=== PATIENT | male | born 1955 | race African-American/Black ===

== ENCOUNTER 2017-01-13 11:50 | Inpatient (IN) | payer OTHER ==
[2017-01-13 16:11] VITALS: BMI 27.2
--- NOTE | 2017-01-13 16:39 | HP ---
CIWA Score - CIWA Score Nausea/Vomitin-No Nausea/No Vomiting Muscle Tremors: 3 Anxiety: 4-Mod. Anxious/Guarded Agitation: 4-Moderately Restless Paroxysmal Sweats: 1-Minimal Palms Moist Orientation: 0-Oriented Tacttile Disturbances: 3-Moderate Itch/Numb/Burn Auditory Disturbances: 0-None Visual Disturbances: 0-None Headache: 0-None Present CIWA-Ar Total Score: 15 Admission ROS BHS - HPI Chief Complaint: DETOX TX FOR ALCOHOL DEPENDENCE Allergies/Adverse Reactions: Allergies Allergy/AdvReac Type Severity Reaction Status Date / Time No Known Allergies Allergy Verified 01/13/17 17:41 History of Present Illness: 61 Y/O AA/MALE WITH A HX OF ALCOHOL AND COCAINE DEPENDENCE SEEKING DETOX TX Exam Limitations: No Limitations - Ebola screening Have you traveled outside of the country in the last 21 days: No Have you had contact with anyone from an Ebola affected area: No Have you been sick,other than usual withdrawal symptoms: No - Review of Systems Constitutional: Chills, Night Sweats, Changes in sleep, Unintentional Wgt. Loss EENT: reports: Nose Congestion, Dental Problems Respiratory: reports: No Symptoms reported Cardiac: reports: Lightheadedness, Palpitations (YEARS AGO) GI: reports: Diarrhea : reports: Frequency Musculoskeletal: reports: Back Pain, Joint Pain, Muscle Pain Integumentary: reports: No Symptoms Reported Neuro: reports: Headache, Numbness, Tingling, Tremors, Unsteady Gait, Dizziness Endocrine: reports: No Symptoms Reported Hematology: reports: No Symptoms Reported Psychiatric: reports: Orientated x3, Anxious, Depressed Other Systems: Reviewed and Negative Patient History - Patient Medical History Hx Anemia: No Hx Asthma: No Hx Chronic Obstructive Pulmonary Disease (COPD): No Hx Cancer: No Hx Cardiac Disorders: No Hx Congestive Heart Failure: No Hx Hypertension: Yes (ON PROCARDIA 120 MG PO DAILY) Hx Hypercholesterolemia: No Hx Pacemaker: No HX Cerebrovascular Accident: No Hx Seizures: No Hx Dementia: No Hx Diabetes: No Hx Gastrointestinal Disorders: No Hx Liver Disease: No Hx Genitourinary Disorders: No Hx Sexually Transmitted Disorders: No (DENIES) Hx Renal Disease (ESRD): Yes (HX CRF "(1.57)"; "THEY SAY NOT BAD BUT GETTING THERE") Hx Thyroid Disease: No Hx Human Immunodeficiency Virus (HIV): No (NEGATIVE HX) Hx Hepatitis C: No Hx Depression: Yes (NO CURRENT MEDS) Hx Suicide Attempt: No Hx Bipolar Disorder: No Hx Schizophrenia: Yes (seroquel,abilify off & on) - Patient Surgical History Past Surgical History: Yes Hx Neurologic Surgery: No Hx Cataract Extraction: No Hx Cardiac Surgery: No Hx Lung Surgery: No Hx Breast Surgery: No Hx Breast Biopsy: No Hx Abdominal Surgery: No Hx Appendectomy: No Hx Cholecystectomy: No Hx Genitourinary Surgery: No Hx Orthopedic Surgery: Yes (Had Rt. Chest tube 2013) Other Surgical History: right lateral keloid removed unable to remember when Anesthesia Reaction: No - PPD History Previous Implant?: Yes Implanted On Prior R Admission?: Yes Date: 01/09/16 Results: 0 mm PPD to be Administered?: Yes - Reproductive History Patient is a Female of Child Bearing Age (11 -55 yrs old): No (MALE) Patient : (N/A) - Smoking Cessation Smoking history: Current some day smoker Have you smoked in the past 12 months: No Aproximately how many cigarettes per day: 1 Cigars Per Day: 0 Hx Chewing Tobacco Use: No Initiated information on smoking cessation: Yes 'Breaking Loose' booklet given: 01/13/17 - Substance & Tx. History Hx Alcohol Use: Yes (BEER/LIQUOR/WINE) Hx Substance Use: Yes (COCAINE/RX PERCOCETS/OXYCODONE) Substance Use Type: Alcohol, Cocaine, Opiates (RX PERCOCETS/OXYCODONE BID BUT TOOK MORE THAN INSTRUCTED) Hx Substance Use Treatment: Yes - Substances Abused Alcohol Route: Oral Frequency: Daily Amount used: 6PK/FIFTH/FIFTH Age of first use: 28 Date of Last Use: 01/12/17 Cocaine Route: Smoking Frequency: Daily Amount used: $50 Age of first use: 28 Date of Last Use: 01/12/17 Family Disease History - Family Disease History Family Disease History: Heart Disease: Father ([place] ), Mother (HTN), Brother (HTN,alcoholic,) Admission Physical Exam BHS - Vital Signs Vital Signs: Vital Signs - 24 hr 01/13/17 16:07 Temperature 97 F L Pulse Rate 57 L Respiratory 20 Rate Blood Pressure 181/110 - Physical General Appearance: Yes: Moderate Distress, Irritable, Anxious HEENTM: Yes: EOMI, Normocephalic, NISSA, Pharynx Normal Respiratory: Yes: Chest Non-Tender, Lungs Clear, Normal Breath Sounds, No Respiratory Distress Neck: Yes: Supple, Trachea in good position Breast: Yes: Breast Exam Deferred Cardiology: Yes: Regular Rhythm, S1, S2, Bradycardia Abdominal: Yes: Normal Bowel Sounds, Non Tender, Soft Genitourinary: Yes: Other (N/C) Back: Yes: Within Normal Limits Musculoskeletal: Yes: full range of Motion, Gait Steady Extremities: Yes: Normal Range of Motion, Non-Tender Neurological: Yes: nylon hot wire cutter II-XII NML intact, Fully Oriented, Alert Integumentary: Yes: Dry, Warm Lymphatic: Yes: Within Normal Limits - Diagnostic (1) Alcohol dependence with uncomplicated withdrawal Current Visit: Yes Status: Acute (2) Hypertension Current Visit: Yes Status: Acute Qualifiers: Hypertension type: essential hypertension Qualified Code(s): I10 - Essential (primary) hypertension (3) Nicotine dependence Current Visit: Yes Status: Acute Qualifiers: Nicotine product type: cigarettes Substance use status: in withdrawal Qualified Code(s): F17.213 - Nicotine dependence, cigarettes, with withdrawal (4) Chronic renal failure Current Visit: Yes Status: Suspected Qualified Code(s): - (5) Cocaine dependence Current Visit: Yes Status: Acute Cleared for Admission [facility] - Detox or Rehab [facility] Level of Care: Medically Managed Detox Regimen/Protocol: Librium [facility] Breath Alcohol Content Breath Alcohol Content: 0 Urine Drug Screen - Results Drug Screen Negative: No Urine Drug Screen Results: RJ-Cocaine, TCA-Tricyclic Antidepress
[2017-01-13] MEDS ORDERED: LOPERAMIDE HCL 2 MG CAPSULE PO PRN (17:00)
[2017-01-13] MEDS ORDERED: IBUPROFEN 400 MG TABLET (FP) PO PRN (17:00)
[2017-01-13] MEDS ORDERED: MENTHOL/PHENOL 1 EACH UD MM PRN (17:00)
[2017-01-13] MEDS ORDERED: P-EPHED 60MG/TRIPROLIDI 2.5MG TABLET PO PRN (17:00)
[2017-01-13] MEDS ORDERED: MAG HYDROX/AL HYDROX/SIMETH 30 ML UNIT-DOSE CUP PO PRN (17:00)
[2017-01-13] MEDS ORDERED: chlordiazePOXIDE HCL 25 MG CAPSULE PO PRN (17:00)
[2017-01-13] MEDS ORDERED: MAGNESIUM HYDROX 2400MG/30ML ORAL SUSPENSION 30 ML CUP PO PRN (17:00)
[2017-01-13] MEDS ORDERED: MAGNESIUM CITRATE 300 ML BOTTLE PO PRN (17:00)
[2017-01-13] MEDS ORDERED: guaiFENesin/D-METHORPHAN HB 10 ML UNIT-DOSE CUPS PO PRN (17:00)
[2017-01-13] MEDS ORDERED: ACETAMINOPHEN 325 MG TABLET (FP) PO PRN (17:00)
[2017-01-13] MEDS ORDERED: chlordiazePOXIDE HCL 25 MG CAPSULE PO ONE (18:00)
[2017-01-13] MEDS: chlordiazePOXIDE HCL 25 MG CAPSULE PO SCH ×2 (18:45→22:06)
[2017-01-13] MEDS ORDERED: cloNIDine HCL 0.1 MG TABLET PO ONE (19:09)
[2017-01-13] MEDS ORDERED: diphenhydrAMINE HCL 50 MG CAPSULE PO PRN (22:00)
[2017-01-13] MEDS: THIAMINE HCL 100 MG TABLET (FP) PO SCH (22:06)
[2017-01-13 23:14] LABS: URINE APPEARANCE CLEAR; URINE BILIRUBIN NEGATIVE (NEGATIVE); URINE BLOOD NEGATIVE (NEGATIVE); URINE COLOR STRAW; URINE GLUCOSE (UA) 1+ (NEGATIVE); URINE KETONE NEGATIVE (NEGATIVE); URINE LEUK ESTERASE NEGATIVE (NEGATIVE); URINE NITRITE NEGATIVE (NEGATIVE); URINE PROTEIN NEGATIVE (NEGATIVE); URINE UROBILINOGEN NEGATIVE mg/dL (0.2-1.0)
[2017-01-14] MEDS: chlordiazePOXIDE HCL 25 MG CAPSULE PO SCH ×4 (05:47→22:38)
[2017-01-14] MEDS: cloNIDine HCL 0.1 MG TABLET PO PRN (07:37)
[2017-01-14] MEDS: PRENATAL VITAMINS W/ FOLIC ACID TABLET (FP) PO SCH (10:14)
[2017-01-14] MEDS ORDERED: IBUPROFEN 600 MG TABLET (FP) PO PRN (10:22)
--- NOTE | 2017-01-14 10:22 | PN ---
S CIWA - CIWA Score Nausea/Vomitin-Mild Nausea/No Vomiting Muscle Tremors: 3 Anxiety: 4-Mod. Anxious/Guarded Agitation: 3 Paroxysmal Sweats: 3 Orientation: 0-Oriented Tacttile Disturbances: 0-None Auditory Disturbances: 0-None Visual Disturbances: 0-None Headache: 1-Very Mild CIWA-Ar Total Score: 15 S Progress Note (SOAP) Subjective: Anxiety,tremors,sweating,interrupted sleep,restless,nausea. Objective: 01/14/17 10:21 Vital Signs - 8 hr 01/14/17 01/14/17 01/14/17 03:28 06:45 09:22 Temperature 97.3 F L 96 F L Pulse Rate 65 74 Respiratory 18 18 18 Rate Blood Pressure 158/104 155/95 Laboratory Results - last 24 hr 01/13/17 23:00 Urine Color Straw Urine Appearance Clear Urine pH 6.0 Urine Protein Negative Urine Glucose (UA) 1+ H Urine Ketones Negative Urine Blood Negative Urine Nitrite Negative Urine Bilirubin Negative Urine Urobilinogen Negative Ur Leukocyte Esterase Negative u/a noted Assessment: 01/14/17 10:21 Withdrawal sx. HTN Plan: Continue detox Resume Nifedipine
[2017-01-14 10:33] LABS: MCH 30.7 pg (25.7-33.7); MCHC 33.3 g/dl (32.0-35.9); MEAN CELL VOLUME 92.2 fl (80-96); PLATELET COUNT 205 K/MM3 (134-434); RDW 14.8 % (11.9-15.9); WHITE BLOOD COUNT 4.6 K/mm3 (4.0-10.0)
[2017-01-14 10:57] LABS: ALBUMIN 3.4 g/dl (3.4-5.0); ALK PHOS 90 U/L (45-117); ANION GAP 7 (8-16); BILIRUBIN,TOTAL 0.5 mg/dL (0.2-1.0); CALCIUM 9.2 mg/dL (8.5-10.1); CO2 31 mmol/L (21-32); CREATININE 1.9 mg/dL (0.7-1.3); GLUCOSE,RANDOM 91 mg/dL (74-106); SGOT/AST 28 U/L (15-37); SGPT/ALT 50 U/L (12-78); TOT PROT 6.7 g/dl (6.4-8.2)
[2017-01-14] MEDS: NIFEdipine E.R. 90 MG TABLET (FP) PO SCH (12:20)
--- NOTE | 2017-01-14 12:48 | CONSULT ---
[facility] Psychiatric Consult - Data Date of interview: 01/14/17 Admission source: [facility] Identifying data: Readmission to [facility] for this 61 y/o AA male seeking detox treatment,on ,for alcohol and cocaine dependence.Patient is single, a father of two,domiciled,unemployed and supported on SSI benefits.Mr Garcia is marginally cooperative.He declines to provide personal demographic information in this interview.Previous records revisited for documentation. Substance Abuse History: - Smoking Cessation. Smoking history: Current some day smoker. Have you smoked in the past 12 months: No. Aproximately how many cigarettes per day: 1. Cigars Per Day: 0. Hx Chewing Tobacco Use: No. Initiated information on smoking cessation: Yes. 'Breaking Loose' booklet given : 01/13/17. - Substance & Tx. History. Hx Alcohol Use: Yes (BEER/LIQUOR/WINE) . Hx Substance Use: Yes (COCAINE/RX PERCOCETS/OXYCODONE). Substance Use Type: Alcohol, Cocaine, Opiates (RX PERCOCETS/OXYCODONE BID BUT TOOK MORE THAN INSTRUCTED). Hx Substance Use Treatment: Yes. - Substances Abused. Alcohol. Route: Oral. Frequency: Daily. Amount used: 6PK/FIFTH/FIFTH. Age of first use: 28. Date of Last Use: 01/12/17. Cocaine. Route: Smoking. Frequency: Daily. Amount used: $50. Age of first use: 28. Date of Last Use: 01/12/17. Noted from current [facility] report. Medical History: History of hypertension and abnormal renal function. Psychiatric History: From previous records : history of psychiatric hospitalizations years ago.Details not available.No OPD care.Off psychotropic medications with the exception of seroquel at bedtime.No reported history of suicide attempts.Records indicate lifetime diagnosis of schizophrenia (paranoid type). Physical/Sexual Abuse/Trauma History: No information.Not discussed. Additional Comment: Urine Drug Screen Results: RJ-Cocaine, TCA-Tricyclic Antidepressants.Patient is guarded.Declines to provide information about his pattern of substance use.History taken from [facility] report. Mental Status Exam - Mental Status Exam Alert and Oriented to: Time, Place, Person Patient Appearance: Well Groomed Mood: Hostile Affect: Blunted Patient Behavior: Guarded, Suspicious Speech Pattern: Tangential Voice Loudness: Normal Thought Process: Circumstantial Thought Disorder: Paranoid Ideation, Bizarre Hallucinations: Denies Suicidal Ideation: Denies Homicidal Ideation: Denies Insight/Judgement: Poor, Impaired Sleep: Well Appetite: Good Muscle strength/Tone: Normal Gait/Station: Normal Psychiatric Findings - Problem List ([place] 1, 2,3) (1) Paranoid schizophrenia Current Visit: Yes Status: Chronic (2) Alcohol dependence with uncomplicated withdrawal Current Visit: Yes Status: Acute (3) Cocaine dependence Current Visit: Yes Status: Acute (4) Nicotine dependence Current Visit: Yes Status: Acute Qualifiers: Nicotine product type: cigarettes Substance use status: in withdrawal Qualified Code(s): F17.213 - Nicotine dependence, cigarettes, with withdrawal (5) Hypertension Current Visit: Yes Status: Acute Qualifiers: Hypertension type: essential hypertension Qualified Code(s): I10 - Essential (primary) hypertension (6) Chronic renal failure Current Visit: Yes Status: Chronic (7) Insomnia Current Visit: Yes Status: Acute - Initial Treatment Plan Initial Treatment Plan: Psychoeducation.Detoxification.Seroquel 100 mg po bid.Side effects/benefits discussed with patient.Agrees to take seroquel.Observation.
--- NOTE | 2017-01-14 22:00 | EKG ---
Test Reason : Blood Pressure : / mmHG Vent. Rate : 060 BPM Atrial Rate : 060 BPM P-R Int : 162 ms QRS Dur : 108 ms QT Int : 424 ms P-R-T Axes : 063 -28 260 degrees QTc Int : 424 ms NORMAL SINUS RHYTHM LEFT ATRIAL ENLARGEMENT LEFT VENTRICULAR HYPERTROPHY WITH REPOLARIZATION ABNORMALITY ABNORMAL ECG WHEN COMPARED WITH ECG OF 15-SEP-2016 08:01, NO SIGNIFICANT CHANGE WAS FOUND CLINICAL CORRELATION IS RECOMMENDED Confirmed by CLAUDETTE DORSEY MD ([id number]) on 01/14/2017 10:00:29 PM Referred By: Confirmed By:CLAUDETTE DORSEY MD
[2017-01-14] MEDS: THIAMINE HCL 100 MG TABLET (FP) PO SCH (22:35)
[2017-01-14] MEDS: QUEtiapine FUMARATE 100 MG TABLET (FP) PO SCH (22:36)
[2017-01-15] MEDS: chlordiazePOXIDE HCL 25 MG CAPSULE PO SCH ×2 (06:06→10:07)
[2017-01-15] MEDS: QUEtiapine FUMARATE 100 MG TABLET (FP) PO SCH ×2 (10:07→22:04)
[2017-01-15] MEDS: PRENATAL VITAMINS W/ FOLIC ACID TABLET (FP) PO SCH (10:07)
[2017-01-15] MEDS: NIFEdipine E.R. 90 MG TABLET (FP) PO SCH (10:07)
--- NOTE | 2017-01-15 12:28 | PN ---
[facility] CIWA - CIWA Score Nausea/Vomitin-No Nausea/No Vomiting Muscle Tremors: 3 Anxiety: 3 Agitation: 3 Paroxysmal Sweats: 3 Orientation: 0-Oriented Tacttile Disturbances: 0-None Auditory Disturbances: 0-None Visual Disturbances: 0-None Headache: 0-None Present CIWA-Ar Total Score: 12 S Progress Note (SOAP) Subjective: Sweating,interrupted sleep,restless,tremors,anxiety Objective: 01/15/17 12:27 Vital Signs - 8 hr 01/15/17 01/15/17 06:33 09:39 Temperature 96.4 F L 96.3 F L Pulse Rate 64 68 Respiratory 18 18 Rate Blood Pressure 140/89 152/99 Laboratory Last Values WBC 4.6 K/mm3 (4.0-10.0) 01/14/17 06:30 RBC 4.21 M/mm3 (4.00-5.60) 01/14/17 06:30 Hgb 12.9 GM/dL (11.7-16.9) 01/14/17 06:30 Hct 38.8 % (35.4-49) 01/14/17 06:30 MCV 92.2 fl (80-96) 01/14/17 06:30 MCH 30.7 pg (25.7-33.7) 01/14/17 06:30 MCHC 33.3 g/dl (32.0-35.9) 01/14/17 06:30 RDW 14.8 % (11.9-15.9) 01/14/17 06:30 Plt Count 205 K/MM3 (134-434) 01/14/17 06:30 MPV 10.0 fl (7.5-11.1) D 01/14/17 06:30 Sodium 142 mmol/L (136-145) 01/14/17 06:30 Potassium 4.1 mmol/L (3.5-5.1) 01/14/17 06:30 Chloride 104 mmol/L (98-107) 01/14/17 06:30 Carbon Dioxide 31 mmol/L (21-32) 01/14/17 06:30 Anion Gap 7 (8-16) L 01/14/17 06:30 BUN 29 mg/dL (7-18) H D 01/14/17 06:30 Creatinine 1.9 mg/dL (0.7-1.3) H D 01/14/17 06:30 Creat Clearance w eGFR 36.47 (>60) 01/14/17 06:30 Random Glucose 91 mg/dL (74-106) 01/14/17 06:30 Calcium 9.2 mg/dL (8.5-10.1) 01/14/17 06:30 Total Bilirubin 0.5 mg/dL (0.2-1.0) D 01/14/17 06:30 AST 28 U/L (15-37) 01/14/17 06:30 ALT 50 U/L (12-78) D 01/14/17 06:30 Alkaline Phosphatase 90 U/L (45-117) 01/14/17 06:30 Total Protein 6.7 g/dl (6.4-8.2) 01/14/17 06:30 Albumin 3.4 g/dl (3.4-5.0) 01/14/17 06:30 Urine Color Straw 01/13/17 23:00 Urine Appearance Clear 01/13/17 23:00 Urine pH 6.0 (5.0-8.0) 01/13/17 23:00 Ur Specific [place] 1.020 (1.005-1.025) 01/13/17 23:00 Urine Protein Negative (NEGATIVE) 01/13/17 23:00 Urine Glucose (UA) 1+ (NEGATIVE) H 01/13/17 23:00 Urine Ketones Negative (NEGATIVE) 01/13/17 23:00 Urine Blood Negative (NEGATIVE) 01/13/17 23:00 Urine Nitrite Negative (NEGATIVE) 01/13/17 23:00 Urine Bilirubin Negative (NEGATIVE) 01/13/17 23:00 Urine Urobilinogen Negative mg/dL (0.2-1.0) 01/13/17 23:00 Ur Leukocyte Esterase Negative (NEGATIVE) 01/13/17 23:00 RPR Titer Nonreactive (NONREACTIVE) 01/14/17 06:30 labs noted,repeat creat/bun Assessment: 01/15/17 12:28 Withdrawal sx. Plan: Continue detox
[2017-01-15] MEDS: chlordiazePOXIDE 5 MG CAPSULE PO SCH ×2 (17:36→22:04)
[2017-01-15] MEDS: THIAMINE HCL 100 MG TABLET (FP) PO SCH (22:04)
[2017-01-16] MEDS: chlordiazePOXIDE 5 MG CAPSULE PO SCH ×2 (05:45→10:05)
[2017-01-16] MEDS: QUEtiapine FUMARATE 100 MG TABLET (FP) PO SCH (10:05)
[2017-01-16] MEDS: PRENATAL VITAMINS W/ FOLIC ACID TABLET (FP) PO SCH (10:05)
[2017-01-16] MEDS: NIFEdipine E.R. 90 MG TABLET (FP) PO SCH (10:05)
--- NOTE | 2017-01-16 13:16 | PN ---
BHS Progress Note (SOAP) Subjective: Sweating,interrupted sleep,restless Objective: 01/16/17 13:15 Vital Signs - 8 hr 01/16/17 01/16/17 06:45 10:12 Temperature 97.3 F L 97.0 F L Pulse Rate 74 68 Respiratory 18 20 Rate Blood Pressure 146/89 160/90 Laboratory Last Values WBC 4.6 K/mm3 (4.0-10.0) 01/14/17 06:30 RBC 4.21 M/mm3 (4.00-5.60) 01/14/17 06:30 Hgb 12.9 GM/dL (11.7-16.9) 01/14/17 06:30 Hct 38.8 % (35.4-49) 01/14/17 06:30 MCV 92.2 fl (80-96) 01/14/17 06:30 MCH 30.7 pg (25.7-33.7) 01/14/17 06:30 MCHC 33.3 g/dl (32.0-35.9) 01/14/17 06:30 RDW 14.8 % (11.9-15.9) 01/14/17 06:30 Plt Count 205 K/MM3 (134-434) 01/14/17 06:30 MPV 10.0 fl (7.5-11.1) D 01/14/17 06:30 Sodium 142 mmol/L (136-145) 01/14/17 06:30 Potassium 4.1 mmol/L (3.5-5.1) 01/14/17 06:30 Chloride 104 mmol/L (98-107) 01/14/17 06:30 Carbon Dioxide 31 mmol/L (21-32) 01/14/17 06:30 Anion Gap 7 (8-16) L 01/14/17 06:30 BUN 29 mg/dL (7-18) H D 01/14/17 06:30 Creatinine 1.9 mg/dL (0.7-1.3) H D 01/14/17 06:30 Creat Clearance w eGFR 36.47 (>60) 01/14/17 06:30 Random Glucose 91 mg/dL (74-106) 01/14/17 06:30 Calcium 9.2 mg/dL (8.5-10.1) 01/14/17 06:30 Total Bilirubin 0.5 mg/dL (0.2-1.0) D 01/14/17 06:30 AST 28 U/L (15-37) 01/14/17 06:30 ALT 50 U/L (12-78) D 01/14/17 06:30 Alkaline Phosphatase 90 U/L (45-117) 01/14/17 06:30 Total Protein 6.7 g/dl (6.4-8.2) 01/14/17 06:30 Albumin 3.4 g/dl (3.4-5.0) 01/14/17 06:30 Urine Color Straw 01/13/17 23:00 Urine Appearance Clear 01/13/17 23:00 Urine pH 6.0 (5.0-8.0) 01/13/17 23:00 Ur Specific [place] 1.020 (1.005-1.025) 01/13/17 23:00 Urine Protein Negative (NEGATIVE) 01/13/17 23:00 Urine Glucose (UA) 1+ (NEGATIVE) H 01/13/17 23:00 Urine Ketones Negative (NEGATIVE) 01/13/17 23:00 Urine Blood Negative (NEGATIVE) 01/13/17 23:00 Urine Nitrite Negative (NEGATIVE) 01/13/17 23:00 Urine Bilirubin Negative (NEGATIVE) 01/13/17 23:00 Urine Urobilinogen Negative mg/dL (0.2-1.0) 01/13/17 23:00 Ur Leukocyte Esterase Negative (NEGATIVE) 01/13/17 23:00 RPR Titer Nonreactive (NONREACTIVE) 01/14/17 06:30 labs noted Assessment: 01/16/17 13:15 Withdrawal sx. Plan: Continue detox
[2017-01-16] MEDS ORDERED: chlordiazePOXIDE HCL 10 MG CAPSULE PO SCH (17:00)
[2017-01-16 17:56] VITALS: BP 138/85; PULSE 69; TEMP 97.8
[2017-01-16] MEDS: cloNIDine HCL 0.1 MG TABLET PO PRN (20:55)
--- NOTE | 2017-01-16 22:38 | DS ---
[facility] Detox Discharge Summary Admission Date: 01/13/17 Discharge Date: 01/16/17 - History Present History: Alcohol Dependence, Cocaine Dependence Pertinent Past History: HTN, CRF - Physical Exam Results Vital Signs: Vital Signs Temperature 97.8 F 01/16/17 17:56 Pulse Rate 69 01/16/17 17:56 Respiratory Rate 18 01/16/17 17:56 Blood Pressure 138/85 01/16/17 17:56 O2 Sat by Pulse Oximetry (%) Pertinent Admission Physical Exam Findings: Laboratory Last Values WBC 4.6 K/mm3 (4.0-10.0) 01/14/17 06:30 RBC 4.21 M/mm3 (4.00-5.60) 01/14/17 06:30 Hgb 12.9 GM/dL (11.7-16.9) 01/14/17 06:30 Hct 38.8 % (35.4-49) 01/14/17 06:30 MCV 92.2 fl (80-96) 01/14/17 06:30 MCH 30.7 pg (25.7-33.7) 01/14/17 06:30 MCHC 33.3 g/dl (32.0-35.9) 01/14/17 06:30 RDW 14.8 % (11.9-15.9) 01/14/17 06:30 Plt Count 205 K/MM3 (134-434) 01/14/17 06:30 MPV 10.0 fl (7.5-11.1) D 01/14/17 06:30 Sodium 142 mmol/L (136-145) 01/14/17 06:30 Potassium 4.1 mmol/L (3.5-5.1) 01/14/17 06:30 Chloride 104 mmol/L (98-107) 01/14/17 06:30 Carbon Dioxide 31 mmol/L (21-32) 01/14/17 06:30 Anion Gap 7 (8-16) L 01/14/17 06:30 BUN 29 mg/dL (7-18) H D 01/14/17 06:30 Creatinine 1.9 mg/dL (0.7-1.3) H D 01/14/17 06:30 Creat Clearance w eGFR 36.47 (>60) 01/14/17 06:30 Random Glucose 91 mg/dL (74-106) 01/14/17 06:30 Calcium 9.2 mg/dL (8.5-10.1) 01/14/17 06:30 Total Bilirubin 0.5 mg/dL (0.2-1.0) D 01/14/17 06:30 AST 28 U/L (15-37) 01/14/17 06:30 ALT 50 U/L (12-78) D 01/14/17 06:30 Alkaline Phosphatase 90 U/L (45-117) 01/14/17 06:30 Total Protein 6.7 g/dl (6.4-8.2) 01/14/17 06:30 Albumin 3.4 g/dl (3.4-5.0) 01/14/17 06:30 Urine Color Straw 01/13/17 23:00 Urine Appearance Clear 01/13/17 23:00 Urine pH 6.0 (5.0-8.0) 01/13/17 23:00 Ur Specific [place] 1.020 (1.005-1.025) 01/13/17 23:00 Urine Protein Negative (NEGATIVE) 01/13/17 23:00 Urine Glucose (UA) 1+ (NEGATIVE) H 01/13/17 23:00 Urine Ketones Negative (NEGATIVE) 01/13/17 23:00 Urine Blood Negative (NEGATIVE) 01/13/17 23:00 Urine Nitrite Negative (NEGATIVE) 01/13/17 23:00 Urine Bilirubin Negative (NEGATIVE) 01/13/17 23:00 Urine Urobilinogen Negative mg/dL (0.2-1.0) 01/13/17 23:00 Ur Leukocyte Esterase Negative (NEGATIVE) 01/13/17 23:00 RPR Titer Nonreactive (NONREACTIVE) 01/14/17 06:30 Pt is alert and oriented x 3. He requested an early discharge. He denies any withdrawal symptoms. Pt advised to follow-up with his PCP regarding abnormal labs; he verbalized understanding. He was discharged safely with no signs of distress noted. Medications sent to the pharmacy. - Treatment Hospital Course: Detox Protocol Followed, Detoxed Safely, Responded well, Discharged Condition Good - Medication Discharge Medications: Ambulatory Orders Quetiapine Fumarate [Seroquel -] 100 mg PO HS 07/10/16 Quetiapine Fumarate [Seroquel] 100 mg PO BID #60 tablet 01/14/17 Nifedipine ER [Procardia XL -] 120 mg PO DAILY #14 mg 01/16/17 - AMA Did Patient Leave Against Medical Advice: No
[2017-01-17] MEDS ORDERED: NIFEdipine E.R 60 MG TABLET (UD) PO SCH (10:00)
== END 2017-01-16 21:14 | disposition home or self-care (01) | DRG 521 ==
LOC: YASAS 11:50 → Y3N 17:58
PROVIDERS: ADMIT Internal Medicine; ATTEND Internal Medicine
PROC: HZ2ZZZZ Detoxification Services for Substance Abuse Treatment (ICD-10-PCS; principal; 2017-01-13)
DX: F10.230 Alcohol dependence with withdrawal, uncomplicated (principal); F20.0 Paranoid schizophrenia; N18.9 Chronic kidney disease, unspecified; F14.20 Cocaine dependence, uncomplicated; F17.213 Nicotine dependence, cigarettes, with withdrawal; I12.9 Hypertensive chronic kidney disease with stage 1 through stage 4 chronic kidney disease, or unspecified chronic kidney disease; G47.00 Insomnia, unspecified; R00.1 Bradycardia, unspecified
CPT/HCPCS: 36415; 80053; 81003; 85027; 86593; 93005; 93010

== ENCOUNTER 2017-03-06 13:15 | Inpatient (IN) | payer OTHER ==
[2017-03-06 14:01] VITALS: BMI 27.2
--- NOTE | 2017-03-06 17:09 | HP ---
CIWA Score - CIWA Score Nausea/Vomitin Muscle Tremors: 4-Moderate,w/Arms Extend Anxiety: 4-Mod. Anxious/Guarded Agitation: 4-Moderately Restless Paroxysmal Sweats: 3 Orientation: 0-Oriented Tacttile Disturbances: 1-Very Mild Itch/Numbness Auditory Disturbances: 0-None Visual Disturbances: 0-None Headache: 1-Very Mild CIWA-Ar Total Score: 20 Admission ROS S - HPI Chief Complaint: alcohol withdrawal sx Allergies/Adverse Reactions: Allergies Allergy/AdvReac Type Severity Reaction Status Date / Time No Known Allergies Allergy Verified 03/06/17 16:55 History of Present Illness: 61 yo m with h/o alcohol and cocaine dependence, multiple admissions for detox PMHx nicotine [id number], HTN, s/p traum left htigh, keloid back, schizophrenia hearing voices on meds, no suicidal ideation no suicide attempts in past. Exam Limitations: No Limitations - Ebola screening Have you traveled outside of the country in the last 21 days: No Have you had contact with anyone from an Ebola affected area: No Have you been sick,other than usual withdrawal symptoms: No Do you have a fever: No - Review of Systems Constitutional: Chills, Diaphoresis, Malaise, Night Sweats, Weight Stable EENT: reports: No Symptoms Reported Respiratory: reports: No Symptoms reported Cardiac: reports: No Symptoms Reported GI: reports: Nausea, Poor Appetite, Poor Fluid Intake, Abdominal cramping : reports: No Symptoms Reported Musculoskeletal: reports: Muscle Pain (thigh pain s/p trauma) Integumentary: reports: Flushing, Sweating, Other (keloid scar on back no erythema non tender) Neuro: reports: Numbness, Paresthesia, Tingling, Tremors, Weakness, Other ( hears non threatening voices) Endocrine: reports: No Symptoms Reported Hematology: reports: No Symptoms Reported Psychiatric: reports: Judgement Intact, Mood/Affect Appropiate, Orientated x3, Anxious, Depressed, other (voices) Other Systems: Reviewed and Negative Patient History - Patient Medical History Hx Anemia: No Hx Asthma: No Hx Chronic Obstructive Pulmonary Disease (COPD): No Hx Cancer: No Hx Cardiac Disorders: No Hx Congestive Heart Failure: No Hx Hypertension: Yes (on meds.) Hx Hypercholesterolemia: No Hx Pacemaker: No HX Cerebrovascular Accident: No Hx Seizures: No Hx Dementia: No Hx Diabetes: No Hx Gastrointestinal Disorders: No Hx Liver Disease: No Hx Genitourinary Disorders: No Hx Sexually Transmitted Disorders: No Hx Renal Disease (ESRD): No Hx Thyroid Disease: No Hx Human Immunodeficiency Virus (HIV): No (NEGATIVE HX) Hx Hepatitis C: No Hx Depression: No Hx Suicide Attempt: No Hx Bipolar Disorder: No Hx Schizophrenia: Yes (paranoid) Other Medical History: s/p trauma left leg with chronic pain syndrome - Patient Surgical History Past Surgical History: Yes Hx Neurologic Surgery: No Hx Cataract Extraction: No Hx Cardiac Surgery: No Hx Lung Surgery: No Hx Breast Surgery: No Hx Breast Biopsy: No Hx Abdominal Surgery: No Hx Appendectomy: No Hx Cholecystectomy: No Hx Genitourinary Surgery: No Hx Section: No Hx Orthopedic Surgery: Yes (Had Rt. Chest tube 2013) Hx Hysterectomy: No Other Surgical History: right lateral keloid removed unable to remember when Anesthesia Reaction: No - PPD History Previous Implant?: Yes Documented Results: Negative w/proof Implanted On Prior [facility] Admission?: Yes Date: 01/15/17 Results: 0 mm PPD to be Administered?: Yes - Reproductive History Patient is a Female of Child Bearing Age (11 -55 yrs old): No Patient : No - Smoking Cessation Smoking history: Current every day smoker Have you smoked in the past 12 months: No Aproximately how many cigarettes per day: 2 If you are a former smoker, when did you quit?: 3 MONTHS AGO Cigars Per Day: 0 Hx Chewing Tobacco Use: No Initiated information on smoking cessation: Yes 'Breaking Loose' booklet given: 03/06/17 - Substance & Tx. History Hx Alcohol Use: Yes Hx Substance Use: Yes Substance Use Type: Alcohol, Cocaine Hx Substance Use Treatment: Yes (mnultiple admissions to [facility]) - Substances Abused Alcohol Route: Oral Frequency: Daily Amount used: 3-4 24 oz beers Age of first use: 25 Date of Last Use: 03/05/17 Cocaine Route: Smoking Frequency: Daily Amount used: $40-50 Age of first use: 29 Date of Last Use: 03/05/17 Family Disease History - Family Disease History Family Disease History: Heart Disease: Father ([place] ), Mother (HTN), Brother (HTN,alcoholic,) Admission Physical Exam BHS - Vital Signs Vital Signs: Vital Signs - 24 hr 03/06/17 14:00 Temperature 96.4 F L Pulse Rate 67 Respiratory 20 Rate Blood Pressure 143/74 - Physical General Appearance: Yes: Nourished, Appropriately Dressed, Disheveled, Mild Distress, Tremorous, Irritable, Sweating, Anxious HEENTM: Yes: Within Normal Limits, EOMI, Hearing grossly Normal, Normal ENT Inspection, Normocephalic, Normal Voice, NISSA, Pharynx Normal, Other (hearing voices but do nto distrub him) Respiratory: Yes: Within Normal Limits, Chest Non-Tender, Lungs Clear, Normal Breath Sounds, No Respiratory Distress, No Accessory Muscle Use Neck: Yes: Within Normal Limits, No masses,lesions,Nodules, Supple, Trachea in good position Breast: Yes: Breast Exam Deferred Cardiology: Yes: Within Normal Limits, Regular Rhythm, Regular Rate, S1, S2 Abdominal: Yes: Within Normal Limits, Normal Bowel Sounds, Non Tender, Flat, Soft Genitourinary: Yes: Within Normal Limits Back: Yes: Within Normal Limits, Normal Inspection Musculoskeletal: Yes: Joint Stiffness (left leg pain, thigh), Joint swelling ( thigh pain), Muscle Pain (thigh s/p trauma) Extremities: Yes: Normal Capillary Refill, Normal Inspection, Normal Range of Motion, Non-Tender, Tremors Neurological: Yes: repairer pump II-XII NML intact, Fully Oriented, Alert, Motor Strength 5/5, Normal Response, Depressed Affect Integumentary: Yes: Normal Color, Warm, Diaphoresis, Moist Lymphatic: Yes: Within Normal Limits - Addiitonal Findings: withdrawal sx. summary /problem list for active problems screen will not populate Cleared for Admission [facility] - Detox or Rehab [facility] Level of Care: Medically Managed Detox Regimen/Protocol: Librium [facility] Breath Alcohol Content Breath Alcohol Content: 0 Urine Drug Screen - Results Drug Screen Negative: No Urine Drug Screen Results: RJ-Cocaine
[2017-03-06] MEDS ORDERED: MAGNESIUM CITRATE 300 ML BOTTLE PO PRN (17:12)
[2017-03-06] MEDS ORDERED: ACETAMINOPHEN 325 MG TABLET (FP) PO PRN (17:12)
[2017-03-06] MEDS ORDERED: MAG HYDROX/AL HYDROX/SIMETH 30 ML UNIT-DOSE CUP PO PRN (17:12)
[2017-03-06] MEDS ORDERED: IBUPROFEN 400 MG TABLET (FP) PO PRN (17:12)
[2017-03-06] MEDS ORDERED: MENTHOL/PHENOL 1 EACH UD MM PRN (17:12)
[2017-03-06] MEDS ORDERED: P-EPHED 60MG/TRIPROLIDI 2.5MG TABLET PO PRN (17:12)
[2017-03-06] MEDS ORDERED: LOPERAMIDE HCL 2 MG CAPSULE PO PRN (17:12)
[2017-03-06] MEDS ORDERED: MAGNESIUM HYDROX 2400MG/30ML ORAL SUSPENSION 30 ML CUP PO PRN (17:12)
[2017-03-06] MEDS ORDERED: diphenhydrAMINE HCL 50 MG CAPSULE PO PRN (17:12)
[2017-03-06] MEDS ORDERED: chlordiazePOXIDE HCL 25 MG CAPSULE PO PRN (17:12)
[2017-03-06] MEDS ORDERED: NICOTINE POLACRILEX 2 MG GUM BC PRN (17:12)
[2017-03-06] MEDS ORDERED: guaiFENesin/D-METHORPHAN HB 10 ML UNIT-DOSE CUPS PO PRN (17:12)
[2017-03-06] MEDS ORDERED: hydrOXYzine PAMOATE 50 MG CAPSULE (FP) PO PRN (17:12)
[2017-03-06] MEDS ORDERED: chlordiazePOXIDE HCL 25 MG CAPSULE PO ONE (18:15)
[2017-03-06] MEDS: NIFEdipine E.R 60 MG TABLET (UD) PO SCH (19:25)
[2017-03-06] MEDS: PANTOPRAZOLE 40 MG TABLET (FP) PO SCH (19:25)
[2017-03-06] MEDS ORDERED: NAPROXEN 500 MG TABLET (FP) PO SCH (22:00)
[2017-03-06] MEDS: NICOTINE 14 MG/24 HOURS TOPICAL PATCH TD SCH (22:35)
[2017-03-06] MEDS: chlordiazePOXIDE HCL 25 MG CAPSULE PO SCH (23:52)
[2017-03-06] MEDS: CYCLOBENZAPRINE HCL 5 MG TABLET PO SCH (23:52)
[2017-03-06] MEDS: GABAPENTIN 100 MG CAPSULE (FP) PO SCH (23:53)
[2017-03-06] MEDS: QUEtiapine FUMARATE 100 MG TABLET (FP) PO SCH (23:53)
[2017-03-06] MEDS: THIAMINE HCL 100 MG TABLET (FP) PO SCH (23:53)
[2017-03-07 00:36] LABS: URINE APPEARANCE CLEAR; URINE BILIRUBIN NEGATIVE (NEGATIVE); URINE BLOOD NEGATIVE (NEGATIVE); URINE COLOR LTYELLOW; URINE GLUCOSE (UA) 1+ (NEGATIVE); URINE KETONE NEGATIVE (NEGATIVE); URINE LEUK ESTERASE NEGATIVE (NEGATIVE); URINE NITRITE NEGATIVE (NEGATIVE); URINE PROTEIN NEGATIVE (NEGATIVE); URINE UROBILINOGEN NEGATIVE mg/dL (0.2-1.0)
[2017-03-07] MEDS: chlordiazePOXIDE HCL 25 MG CAPSULE PO SCH ×4 (05:43→22:20)
[2017-03-07] MEDS: CYCLOBENZAPRINE HCL 5 MG TABLET PO SCH ×3 (05:43→22:21)
[2017-03-07] MEDS: GABAPENTIN 100 MG CAPSULE (FP) PO SCH ×3 (05:43→22:21)
[2017-03-07 09:55] LABS: MCHC 33.4 g/dl (32.0-35.9); MEAN CELL VOLUME 89.6 fl (80-96); MEAN PLT VOLUME 9.2 fl (7.5-11.1); PLATELET COUNT 228 K/MM3 (134-434); RDW 14.8 % (11.9-15.9); WHITE BLOOD COUNT 4.1 K/mm3 (4.0-10.0)
[2017-03-07 09:56] LABS: ALBUMIN 3.4 g/dl (3.4-5.0)
[2017-03-07 10:00] LABS: ALK PHOS 75 U/L (45-117); ANION GAP 5 (8-16); BILIRUBIN,TOTAL 0.3 mg/dL (0.2-1.0); CALCIUM 8.9 mg/dL (8.5-10.1); CO2 29 mmol/L (21-32); CREATININE 2.1 mg/dL (0.7-1.3); GLUCOSE,RANDOM 100 mg/dL (74-106); SGOT/AST 21 U/L (15-37); SGPT/ALT 20 U/L (12-78); TOT PROT 6.6 g/dl (6.4-8.2)
[2017-03-07] MEDS: PRENATAL VITAMINS W/ FOLIC ACID TABLET (FP) PO SCH (10:20)
[2017-03-07] MEDS: PANTOPRAZOLE 40 MG TABLET (FP) PO SCH (10:20)
[2017-03-07] MEDS: NIFEdipine E.R 60 MG TABLET (UD) PO SCH (10:21)
[2017-03-07] MEDS: NICOTINE 14 MG/24 HOURS TOPICAL PATCH TD SCH (10:21)
[2017-03-07] MEDS: QUEtiapine FUMARATE 100 MG TABLET (FP) PO SCH (22:21)
[2017-03-07] MEDS: THIAMINE HCL 100 MG TABLET (FP) PO SCH (22:21)
[2017-03-08] MEDS: GABAPENTIN 100 MG CAPSULE (FP) PO SCH ×3 (06:19→22:17)
[2017-03-08] MEDS: CYCLOBENZAPRINE HCL 5 MG TABLET PO SCH ×3 (06:19→22:17)
[2017-03-08] MEDS: chlordiazePOXIDE HCL 25 MG CAPSULE PO SCH ×3 (06:19→18:10)
[2017-03-08] MEDS: NIFEdipine E.R 60 MG TABLET (UD) PO SCH (10:49)
[2017-03-08] MEDS: PANTOPRAZOLE 40 MG TABLET (FP) PO SCH (10:49)
[2017-03-08] MEDS: PRENATAL VITAMINS W/ FOLIC ACID TABLET (FP) PO SCH (10:50)
[2017-03-08] MEDS: NICOTINE 14 MG/24 HOURS TOPICAL PATCH TD SCH (10:50)
--- NOTE | 2017-03-08 13:07 | PN ---
S CIWA - CIWA Score Nausea/Vomitin Muscle Tremors: 2 Anxiety: 2 Agitation: 2 Paroxysmal Sweats: 2 Orientation: 0-Oriented Tacttile Disturbances: 1-Very Mild Itch/Numbness Auditory Disturbances: 0-None Visual Disturbances: 1-Very Mild Sensitivity Headache: 2-Mild CIWA-Ar Total Score: 14 S Progress Note (SOAP) Subjective: interrupted sleep, tremors and sweats Objective: 03/08/17 13:07 Vital Signs - 8 hr 03/08/17 03/08/17 06:49 11:02 Temperature 98.9 F 96.8 F L Pulse Rate 79 76 Respiratory 18 18 Rate Blood Pressure 127/80 143/95 Laboratory Last Values WBC 4.1 K/mm3 (4.0-10.0) 03/07/17 07:50 RBC 4.27 M/mm3 (4.00-5.60) 03/07/17 07:50 Hgb 12.8 GM/dL (11.7-16.9) 03/07/17 07:50 Hct 38.3 % (35.4-49) 03/07/17 07:50 MCV 89.6 fl (80-96) 03/07/17 07:50 MCH 30.0 pg (25.7-33.7) 03/07/17 07:50 MCHC 33.4 g/dl (32.0-35.9) 03/07/17 07:50 RDW 14.8 % (11.9-15.9) 03/07/17 07:50 Plt Count 228 K/MM3 (134-434) 03/07/17 07:50 MPV 9.2 fl (7.5-11.1) 03/07/17 07:50 Sodium 142 mmol/L (136-145) 03/07/17 07:50 Potassium 4.0 mmol/L (3.5-5.1) 03/07/17 07:50 Chloride 108 mmol/L (98-107) H 03/07/17 07:50 Carbon Dioxide 29 mmol/L (21-32) 03/07/17 07:50 Anion Gap 5 (8-16) L 03/07/17 07:50 BUN 40 mg/dL (7-18) H D 03/07/17 07:50 Creatinine 2.1 mg/dL (0.7-1.3) H 03/07/17 07:50 Creat Clearance w eGFR 32.49 (>60) 03/07/17 07:50 Random Glucose 100 mg/dL (74-106) 03/07/17 07:50 Calcium 8.9 mg/dL (8.5-10.1) 03/07/17 07:50 Total Bilirubin 0.3 mg/dL (0.2-1.0) D 03/07/17 07:50 AST 21 U/L (15-37) D 03/07/17 07:50 ALT 20 U/L (12-78) D 03/07/17 07:50 Alkaline Phosphatase 75 U/L (45-117) 03/07/17 07:50 Total Protein 6.6 g/dl (6.4-8.2) 03/07/17 07:50 Albumin 3.4 g/dl (3.4-5.0) 03/07/17 07:50 Urine Color Ltyellow 03/06/17 21:39 Urine Appearance Clear 03/06/17 21:39 Urine pH 5.0 (5.0-8.0) 03/06/17 21:39 Ur Specific [place] 1.020 (1.005-1.025) 03/06/17 21:39 Urine Protein Negative (NEGATIVE) 03/06/17 21:39 Urine Glucose (UA) 1+ (NEGATIVE) H 03/06/17 21:39 Urine Ketones Negative (NEGATIVE) 03/06/17 21:39 Urine Blood Negative (NEGATIVE) 03/06/17 21:39 Urine Nitrite Negative (NEGATIVE) 03/06/17 21:39 Urine Bilirubin Negative (NEGATIVE) 03/06/17 21:39 Urine Urobilinogen Negative mg/dL (0.2-1.0) 03/06/17 21:39 RPR Titer Nonreactive (NONREACTIVE) 03/07/17 07:50 labs noted Assessment: 03/08/17 13:07 withdrawal sx Plan: continue detox
[2017-03-08] MEDS ORDERED: cloNIDine HCL 0.1 MG TABLET PO ONE (13:54)
[2017-03-08] MEDS: THIAMINE HCL 100 MG TABLET (FP) PO SCH (22:17)
[2017-03-08] MEDS: chlordiazePOXIDE 5 MG CAPSULE PO SCH (22:17)
[2017-03-08] MEDS: QUEtiapine FUMARATE 100 MG TABLET (FP) PO SCH (22:17)
[2017-03-09] MEDS: chlordiazePOXIDE 5 MG CAPSULE PO SCH ×3 (05:31→18:48)
[2017-03-09] MEDS: CYCLOBENZAPRINE HCL 5 MG TABLET PO SCH ×3 (05:32→22:21)
[2017-03-09] MEDS: GABAPENTIN 100 MG CAPSULE (FP) PO SCH ×3 (05:33→22:20)
[2017-03-09] MEDS: NIFEdipine E.R 60 MG TABLET (UD) PO SCH (10:21)
[2017-03-09] MEDS: NICOTINE 14 MG/24 HOURS TOPICAL PATCH TD SCH (10:21)
[2017-03-09] MEDS: PRENATAL VITAMINS W/ FOLIC ACID TABLET (FP) PO SCH (10:21)
[2017-03-09] MEDS: PANTOPRAZOLE 40 MG TABLET (FP) PO SCH (10:21)
--- NOTE | 2017-03-09 13:09 | PN ---
BHS Progress Note (SOAP) Subjective: Sweating,interrupted sleep,restless. BP has remained higher than normal. Objective: 03/09/17 13:07 Vital Signs - 8 hr 03/09/17 03/09/17 06:33 10:26 Temperature 97.2 F L 97.7 F Pulse Rate 92 H 82 Respiratory 20 18 Rate Blood Pressure 130/90 160/103 Laboratory Tests 03/06/17 03/07/17 03/07/17 21:39 07:50 07:50 WBC 4.1 RBC 4.27 Hgb 12.8 Hct 38.3 MCV 89.6 MCH 30.0 MCHC 33.4 RDW 14.8 Plt Count 228 MPV 9.2 Sodium 142 Potassium 4.0 Chloride 108 H Carbon Dioxide 29 Anion Gap 5 L BUN 40 H D Creatinine 2.1 H Creat Clearance w eGFR 32.49 Random Glucose 100 Calcium 8.9 Total Bilirubin 0.3 D AST 21 D ALT 20 D Alkaline Phosphatase 75 Total Protein 6.6 Albumin 3.4 Urine Color Ltyellow Urine Appearance Clear Urine pH 5.0 Ur Specific [place] 1.020 Urine Protein Negative Urine Glucose (UA) 1+ H Urine Ketones Negative Urine Blood Negative Urine Nitrite Negative Urine Bilirubin Negative Urine Urobilinogen Negative RPR Titer 03/07/17 07:50 WBC RBC Hgb Hct MCV MCH MCHC RDW Plt Count MPV Sodium Potassium Chloride Carbon Dioxide Anion Gap BUN Creatinine Creat Clearance w eGFR Random Glucose Calcium Total Bilirubin AST ALT Alkaline Phosphatase Total Protein Albumin Urine Color Urine Appearance Urine pH Ur Specific [place] Urine Protein Urine Glucose (UA) Urine Ketones Urine Blood Urine Nitrite Urine Bilirubin Urine Urobilinogen RPR Titer Nonreactive labs noted,creat 2.1 & BUN 40 Assessment: 03/09/17 13:08 Withdrawal Sx. HTN CRF Plan: continue detox
[2017-03-09] MEDS: LISINOPRIL 10 MG TABLET (FP) PO SCH ×3 (13:29→22:59)
[2017-03-09] MEDS: chlordiazePOXIDE HCL 10 MG CAPSULE PO SCH (22:20)
[2017-03-09] MEDS: THIAMINE HCL 100 MG TABLET (FP) PO SCH (22:21)
[2017-03-09] MEDS: QUEtiapine FUMARATE 100 MG TABLET (FP) PO SCH (22:58)
[2017-03-09] MEDS ORDERED: cloNIDine HCL 0.1 MG TABLET PO ONE (23:28)
[2017-03-10] MEDS: CYCLOBENZAPRINE HCL 5 MG TABLET PO SCH (05:43)
[2017-03-10] MEDS: GABAPENTIN 100 MG CAPSULE (FP) PO SCH (05:43)
[2017-03-10] MEDS: chlordiazePOXIDE HCL 10 MG CAPSULE PO SCH (05:43)
[2017-03-10] MEDS ORDERED: HYDROCHLOROTHIAZIDE 50 MG TABLET PO SCH (06:00)
--- NOTE | 2017-03-10 08:41 | PN ---
S CIWA - CIWA Score Nausea/Vomitin-No Nausea/No Vomiting Muscle Tremors: 3 Anxiety: 3 Agitation: 3 Paroxysmal Sweats: 3 Orientation: 0-Oriented Tacttile Disturbances: 0-None Auditory Disturbances: 0-None Visual Disturbances: 0-None Headache: 0-None Present CIWA-Ar Total Score: 12 BHS Progress Note (SOAP) Subjective: sweats shakes interrupted sleep Objective: 03/07/17 08:40 Vital Signs (72 hours) 03/07/17 03/07/17 03/07/17 09:40 14:08 17:26 Temperature 98.2 F 96.5 F L 98 F Pulse Rate 70 76 72 Respiratory 18 18 18 Rate Blood Pressure 147/97 148/90 149/91 03/07/17 03/08/17 03/08/17 23:14 00:30 03:30 Temperature 98.8 F Pulse Rate 79 Respiratory 18 18 18 Rate Blood Pressure 151/97 03/08/17 03/08/17 03/08/17 06:49 11:02 14:38 Temperature 98.9 F 96.8 F L 98.2 F Pulse Rate 79 76 77 Respiratory 18 18 18 Rate Blood Pressure 127/80 143/95 163/101 03/08/17 03/08/17 03/09/17 18:41 23:48 00:30 Temperature 97.7 F 98.1 F Pulse Rate 71 74 Respiratory 18 18 18 Rate Blood Pressure 144/97 150/94 03/09/17 03/09/17 03/09/17 03:30 06:33 10:26 Temperature 97.2 F L 97.7 F Pulse Rate 92 H 82 Respiratory 18 20 18 Rate Blood Pressure 130/90 160/103 03/09/17 03/09/17 03/09/17 13:48 18:50 23:26 Temperature 96.1 F L 98.4 F 98.2 F Pulse Rate 89 85 86 Respiratory 18 18 18 Rate Blood Pressure 151/109 157/107 153/105 03/10/17 03/10/17 00:30 06:16 Temperature 97.6 F Pulse Rate 75 Respiratory 20 20 Rate Blood Pressure 135/85 Laboratory Tests 03/06/17 03/07/17 03/07/17 21:39 07:50 07:50 WBC 4.1 RBC 4.27 Hgb 12.8 Hct 38.3 MCV 89.6 MCH 30.0 MCHC 33.4 RDW 14.8 Plt Count 228 MPV 9.2 Sodium 142 Potassium 4.0 Chloride 108 H Carbon Dioxide 29 Anion Gap 5 L BUN 40 H D Creatinine 2.1 H Creat Clearance w eGFR 32.49 Random Glucose 100 Calcium 8.9 Total Bilirubin 0.3 D AST 21 D ALT 20 D Alkaline Phosphatase 75 Total Protein 6.6 Albumin 3.4 Urine Color Ltyellow Urine Appearance Clear Urine pH 5.0 Ur Specific [place] 1.020 Urine Protein Negative Urine Glucose (UA) 1+ H Urine Ketones Negative Urine Blood Negative Urine Nitrite Negative Urine Bilirubin Negative Urine Urobilinogen Negative RPR Titer 03/07/17 07:50 WBC RBC Hgb Hct MCV MCH MCHC RDW Plt Count MPV Sodium Potassium Chloride Carbon Dioxide Anion Gap BUN Creatinine Creat Clearance w eGFR Random Glucose Calcium Total Bilirubin AST ALT Alkaline Phosphatase Total Protein Albumin Urine Color Urine Appearance Urine pH Ur Specific [place] Urine Protein Urine Glucose (UA) Urine Ketones Urine Blood Urine Nitrite Urine Bilirubin Urine Urobilinogen RPR Titer Nonreactive aaox3 lying in bed no acute distress Assessment: 03/07/17 08:40 withdrawal sx Plan: continue detox increase fluids
--- NOTE | 2017-03-10 08:43 | DS ---
[facility] Detox Discharge Summary Admission Date: 03/06/17 Discharge Date: 03/10/17 - History Present History: Alcohol Dependence, Cocaine Dependence - Physical Exam Results Vital Signs: Vital Signs Temperature 97.6 F 03/10/17 06:16 Pulse Rate 75 03/10/17 06:16 Respiratory Rate 20 03/10/17 06:16 Blood Pressure 135/85 03/10/17 06:16 O2 Sat by Pulse Oximetry (%) - Treatment Hospital Course: Detox Protocol Followed, Detoxed Safely, Responded well, Discharged Condition Good, Rehab Referral Accepted - Medication Discharge Medications: Ambulatory Orders Quetiapine Fumarate [Seroquel -] 100 mg PO HS 07/10/16 Nifedipine ER [Procardia XL -] 120 mg PO DAILY #14 mg 01/16/17 - Diagnosis (1) Alcohol dependence with uncomplicated withdrawal Current Visit: Yes Status: Chronic (2) Cocaine dependence Current Visit: Yes Status: Chronic (3) Hypertension Current Visit: Yes Status: Chronic Qualifiers: Hypertension type: essential hypertension Qualified Code(s): I10 - Essential (primary) hypertension (4) Nicotine dependence Current Visit: Yes Status: Chronic Qualifiers: Nicotine product type: cigarettes Substance use status: uncomplicated Qualified Code(s): F17.210 - Nicotine dependence, cigarettes, uncomplicated - AMA Did Patient Leave Against Medical Advice: No (referred to [facility])
[2017-03-10] MEDS: PRENATAL VITAMINS W/ FOLIC ACID TABLET (FP) PO SCH (10:19)
[2017-03-10] MEDS: LISINOPRIL 10 MG TABLET (FP) PO SCH (10:19)
[2017-03-10] MEDS: NICOTINE 14 MG/24 HOURS TOPICAL PATCH TD SCH (10:19)
[2017-03-10] MEDS: PANTOPRAZOLE 40 MG TABLET (FP) PO SCH (10:20)
[2017-03-10] MEDS: NIFEdipine E.R 60 MG TABLET (UD) PO SCH (10:20)
[2017-03-10 10:22] VITALS: BP 154/97; PULSE 80; TEMP 97.7
--- NOTE | 2017-03-10 17:05 | EKG ---
Test Reason : Blood Pressure : / mmHG Vent. Rate : 068 BPM Atrial Rate : 068 BPM P-R Int : 166 ms QRS Dur : 128 ms QT Int : 408 ms P-R-T Axes : 068 -35 209 degrees QTc Int : 433 ms NORMAL SINUS RHYTHM POSSIBLE LEFT ATRIAL ENLARGEMENT LEFT AXIS DEVIATION NON-SPECIFIC INTRA-VENTRICULAR CONDUCTION BLOCK T WAVE ABNORMALITY, CONSIDER INFEROLATERAL ISCHEMIA ABNORMAL ECG WHEN COMPARED WITH ECG OF 13-JAN-2017 17:50, Confirmed by LOLITA ARREDONDO MD ([id number]) on 03/10/2017 5:04:52 PM Referred By: Wei Crews Confirmed By:LOLITA ARREDONDO MD
== END 2017-03-10 11:12 | disposition home or self-care (01) | DRG 521 ==
LOC: YASAS 13:15 → Y6N 17:40
PROVIDERS: ADMIT Internal Medicine; ATTEND Internal Medicine
PROC: HZ2ZZZZ Detoxification Services for Substance Abuse Treatment (ICD-10-PCS; principal; 2017-03-06)
DX: F10.230 Alcohol dependence with withdrawal, uncomplicated (principal); F20.0 Paranoid schizophrenia; F14.20 Cocaine dependence, uncomplicated; F17.210 Nicotine dependence, cigarettes, uncomplicated; I10 Essential (primary) hypertension; L91.0 Hypertrophic scar
CPT/HCPCS: 36415; 80053; 81003; 85027; 86593; 93005; 93010

== ENCOUNTER 2018-03-01 16:33 | Inpatient (IN) | payer OTHER ==
[2018-03-01 17:11] VITALS: BMI 27.2
--- NOTE | 2018-03-01 19:57 | HP ---
CIWA Score - CIWA Score Nausea/Vomitin Muscle Tremors: 3 Anxiety: 3 Agitation: 4-Moderately Restless Paroxysmal Sweats: 3 Orientation: 0-Oriented Tacttile Disturbances: 0-None Auditory Disturbances: 0-None Visual Disturbances: 0-None Headache: 0-None Present CIWA-Ar Total Score: 16 Admission ROS S - HPI Chief Complaint: "I am here for detox from cocaine and alcohol" Allergies/Adverse Reactions: Allergies Allergy/AdvReac Type Severity Reaction Status Date / Time No Known Allergies Allergy Verified 03/01/18 17:57 History of Present Illness: 62 y/o male with a long hx of alcohol addiction presents for detox. Pt has had numerous visits to this facility. Pt is self referred. Denies any remarkable sober period. Hx of HTN (takes "Nifedipine" as needed"), schizophrenia (seroquel, taken "as needed"). Denies past nor current SI/HI Exam Limitations: No Limitations - Ebola screening Have you traveled outside of the country in the last 21 days: No (N) Have you had contact with anyone from an Ebola affected area: No Have you been sick,other than usual withdrawal symptoms: No Do you have a fever: No - Review of Systems Constitutional: Loss of Appetite, Night Sweats, Unintentional Wgt. Loss EENT: reports: Blurred Vision, Other (wears glasses to see) Respiratory: reports: No Symptoms reported, Cough (non productive) Cardiac: reports: No Symptoms Reported GI: reports: No Symptoms Reported : reports: No Symptoms Reported Musculoskeletal: reports: No Symptoms Reported Integumentary: reports: No Symptoms Reported Neuro: reports: Headache Endocrine: reports: No Symptoms Reported Hematology: reports: No Symptoms Reported Psychiatric: reports: No Sypmtoms Reported, Anxious Other Systems: Reviewed and Negative Patient History - Patient Medical History Hx Anemia: No Hx Asthma: No Hx Chronic Obstructive Pulmonary Disease (COPD): No Hx Cancer: No Hx Cardiac Disorders: No Hx Congestive Heart Failure: No Hx Hypertension: Yes (On nifedipine) Hx Hypercholesterolemia: No Hx Pacemaker: No HX Cerebrovascular Accident: No Hx Seizures: No Hx Dementia: No Hx Diabetes: No Hx Gastrointestinal Disorders: No Hx Liver Disease: No Hx Genitourinary Disorders: No Hx Sexually Transmitted Disorders: No Hx Renal Disease (ESRD): No Hx Thyroid Disease: No Hx Human Immunodeficiency Virus (HIV): No (NEGATIVE HX last 2012) Hx Hepatitis C: No Hx Depression: Yes Hx Suicide Attempt: No Hx Bipolar Disorder: No Hx Schizophrenia: Yes - Patient Surgical History Past Surgical History: Yes Hx Neurologic Surgery: No Hx Cataract Extraction: No Hx Cardiac Surgery: No Hx Lung Surgery: Yes (R chest tube 2013) Hx Breast Surgery: No Hx Breast Biopsy: No Hx Abdominal Surgery: No Hx Appendectomy: No Hx Cholecystectomy: No Hx Genitourinary Surgery: No Hx Section: No Hx Orthopedic Surgery: Yes Hx Hysterectomy: No Other Surgical History: right lateral keloid removed unable to remember when Anesthesia Reaction: No - PPD History Previous Implant?: Yes Documented Results: Negative w/proof Implanted On Prior [facility] Admission?: Yes Date: 01/15/17 Results: 0 mm PPD to be Administered?: Yes - Reproductive History Patient is a Female of Child Bearing Age (11 -55 yrs old): No - Smoking Cessation Smoking history: Current some day smoker Have you smoked in the past 12 months: Yes Aproximately how many cigarettes per day: 1 If you are a former smoker, when did you quit?: 3 MONTHS AGO Cigars Per Day: 0 Hx Chewing Tobacco Use: No Initiated information on smoking cessation: Yes 'Breaking Loose' booklet given: 03/01/18 - Substances Abused Alcohol Route: Oral Frequency: Daily Amount used: 6 (12 oz beer), Vodka 1 pint Age of first use: 21 Date of Last Use: 02/27/18 Cocaine Route: Smoking Frequency: Daily Amount used: $50 Age of first use: 28 Date of Last Use: 02/28/18 Family Disease History - Family Disease History Family Disease History: Heart Disease: Father ([place] ), Mother (HTN), Brother (HTN,alcoholic,) Admission Physical Exam S - Vital Signs Vital Signs: Vital Signs - 24 hr 03/01/18 17:09 Temperature 98.6 F Pulse Rate 68 Respiratory 18 Rate Blood Pressure 160/94 - Physical General Appearance: Yes: Disheveled, Mild Distress, Anxious HEENTM: Yes: Within Normal Limits Respiratory: Yes: Lungs Clear, No Respiratory Distress, No Accessory Muscle Use Neck: Yes: Trachea in good position Breast: Yes: Breast Exam Deferred Cardiology: Yes: Regular Rate Abdominal: Yes: Normal Bowel Sounds, Non Tender, Distended Back: Yes: Normal Inspection Musculoskeletal: Yes: full range of Motion, Gait Steady Extremities: Yes: Within Normal Limits, Normal Capillary Refill, Normal Range of Motion Neurological: Yes: Within Normal Limits, Alert, Motor Strength 5/5 Integumentary: Yes: Within Normal Limits, Normal Color Lymphatic: Yes: Within Normal Limits - Diagnostic (1) Alcohol dependence with uncomplicated withdrawal Current Visit: Yes Status: Acute (2) Cocaine dependence Current Visit: Yes Status: Chronic (3) History of chest tube placement Current Visit: No Status: Resolved (4) Nicotine dependence Current Visit: Yes Status: Chronic Qualifiers: Nicotine product type: cigarettes Substance use status: uncomplicated Qualified Code(s): F17.210 - Nicotine dependence, cigarettes, uncomplicated (5) Status post skin graft Current Visit: No Status: Resolved (6) Hypertension Current Visit: Yes Status: Chronic Qualifiers: Hypertension type: essential hypertension Qualified Code(s): I10 - Essential (primary) hypertension Cleared for Admission [facility] - Detox or Rehab [facility] Level of Care: Medically Managed Detox Regimen/Protocol: Librium S Breath Alcohol Content Breath Alcohol Content: 0 Urine Drug Screen - Results Drug Screen Negative: No Urine Drug Screen Results: RJ-Cocaine
[2018-03-01] MEDS ORDERED: ACETAMINOPHEN 325 MG TABLET (FP) PO PRN (20:11)
[2018-03-01] MEDS ORDERED: MAG HYDROX/AL HYDROX/SIMETH 30 ML UNIT-DOSE CUP PO PRN (20:11)
[2018-03-01] MEDS ORDERED: MAGNESIUM HYDROX 2400MG/30ML ORAL SUSPENSION 30 ML CUP PO PRN (20:11)
[2018-03-01] MEDS ORDERED: hydrOXYzine PAMOATE 50 MG CAPSULE (FP) PO PRN (20:11)
[2018-03-01] MEDS ORDERED: MAGNESIUM CITRATE 300 ML BOTTLE PO PRN (20:11)
[2018-03-01] MEDS ORDERED: LOPERAMIDE HCL 2 MG CAPSULE PO PRN (20:11)
[2018-03-01] MEDS ORDERED: MENTHOL/PHENOL 1 EACH UD MM PRN (20:11)
[2018-03-01] MEDS ORDERED: chlordiazePOXIDE HCL 25 MG CAPSULE PO PRN (20:11)
[2018-03-01] MEDS ORDERED: IBUPROFEN 400 MG TABLET (FP) PO PRN (20:11)
[2018-03-01] MEDS ORDERED: P-EPHED 60MG/TRIPROLIDI 2.5MG TABLET PO PRN (20:11)
[2018-03-01] MEDS ORDERED: guaiFENesin/D-METHORPHAN HB 10 ML UNIT-DOSE CUPS PO PRN (20:11)
[2018-03-01] MEDS: THIAMINE HCL 100 MG TABLET (FP) PO SCH (21:22)
[2018-03-01 21:44] LABS: URINE APPEARANCE CLEAR; URINE BILIRUBIN NEGATIVE (<2.0 mg/dL); URINE COLOR YELLOW; URINE GLUCOSE (UA) 1+ (NEGATIVE); URINE KETONE NEGATIVE (NEGATIVE); URINE LEUK ESTERASE NEGATIVE (NEGATIVE); URINE NITRITE NEGATIVE (NEGATIVE); URINE UROBILINOGEN NEGATIVE mg/dL (0.2-1.0)
[2018-03-01 21:47] LABS: URINE PROTEIN 1+ (NEGATIVE)
[2018-03-01 21:49] LABS: URINE HYALINE CAST 1 /lpf; URINE MUCUS RARE
[2018-03-01] MEDS ORDERED: MELATONIN 5 MG TABLETS PO PRN (22:00)
[2018-03-01] MEDS: chlordiazePOXIDE HCL 25 MG CAPSULE PO SCH (22:58)
[2018-03-02] MEDS: chlordiazePOXIDE HCL 25 MG CAPSULE PO SCH ×4 (05:54→22:28)
[2018-03-02 10:11] LABS: HEMATOCRIT 39.7 % (35.4-49); MCH 29.9 pg (25.7-33.7); MCHC 32.7 g/dl (32.0-35.9); MEAN CELL VOLUME 91.3 fl (80-96); MEAN PLT VOLUME 9.3 fl (7.5-11.1); PLATELET COUNT 205 K/MM3 (134-434); RBC 4.35 M/mm3 (4.00-5.60); WHITE BLOOD COUNT 5.8 K/mm3 (4.0-10.0)
[2018-03-02 10:26] LABS: CHLORIDE 105 mmol/L (98-107); POTASSIUM 3.7 mmol/L (3.5-5.1); SODIUM 143 mmol/L (136-145)
[2018-03-02 10:33] LABS: ALBUMIN 3.4 g/dl (3.4-5.0); ALK PHOS 109 U/L (45-117); ANION GAP 9 MMOL/L (8-16); BILIRUBIN,TOTAL 0.4 mg/dL (0.2-1.0); BLOOD UREA NITROGEN 35 mg/dL (7-18); CALCIUM 8.7 mg/dL (8.5-10.1); CO2 29 mmol/L (21-32); CREATININE 2.2 mg/dL (0.7-1.3); GLUCOSE,RANDOM 103 mg/dL (74-106); SGOT/AST 51 U/L (15-37); SGPT/ALT 76 U/L (12-78)
--- NOTE | 2018-03-02 11:23 | EKG ---
Test Reason : Blood Pressure : / mmHG Vent. Rate : 065 BPM Atrial Rate : 065 BPM P-R Int : 164 ms QRS Dur : 114 ms QT Int : 420 ms P-R-T Axes : 068 -31 248 degrees QTc Int : 436 ms NORMAL SINUS RHYTHM POSSIBLE LEFT ATRIAL ENLARGEMENT LEFT AXIS DEVIATION LEFT VENTRICULAR HYPERTROPHY WITH REPOLARIZATION ABNORMALITY ABNORMAL ECG WHEN COMPARED WITH ECG OF 29-APR-2017 16:03, NO SIGNIFICANT CHANGE WAS FOUND Confirmed by MARIA ELENA MEDINA, LOLITA ([id number]) on 03/02/2018 11:22:42 AM Referred By: Confirmed By:LOLITA ARREDONDO MD
[2018-03-02] MEDS: PRENATAL VITAMINS W/ FOLIC ACID TABLET (FP) PO SCH (12:00)
--- NOTE | 2018-03-02 14:22 | PN ---
S CIWA - CIWA Score Nausea/Vomitin Muscle Tremors: 4-Moderate,w/Arms Extend Anxiety: 3 Agitation: 2 Paroxysmal Sweats: 3 Orientation: 0-Oriented Tacttile Disturbances: 0-None Auditory Disturbances: 0-None Visual Disturbances: 0-None Headache: 0-None Present CIWA-Ar Total Score: 14 S Progress Note (SOAP) Subjective: Sweats Shakes Sleep disturbance Objective: 03/02/18 14:19 Sleeping, arousable to verbal stimui A & O x 3 Vital Signs Temperature 97.1 F L 03/02/18 13:34 Pulse Rate 60 03/02/18 13:34 Respiratory Rate 18 03/02/18 13:34 Blood Pressure 153/110 03/02/18 13:34 O2 Sat by Pulse Oximetry (%) Laboratory Last Values WBC 5.8 K/mm3 (4.0-10.0) 03/02/18 07:00 RBC 4.35 M/mm3 (4.00-5.60) 03/02/18 07:00 Hgb 13.0 GM/dL (11.7-16.9) 03/02/18 07:00 Hct 39.7 % (35.4-49) 03/02/18 07:00 MCV 91.3 fl (80-96) 03/02/18 07:00 MCH 29.9 pg (25.7-33.7) 03/02/18 07:00 MCHC 32.7 g/dl (32.0-35.9) 03/02/18 07:00 RDW 15.0 % (11.9-15.9) 03/02/18 07:00 Plt Count 205 K/MM3 (134-434) 03/02/18 07:00 MPV 9.3 fl (7.5-11.1) 03/02/18 07:00 Sodium 143 mmol/L (136-145) 03/02/18 07:00 Potassium 3.7 mmol/L (3.5-5.1) 03/02/18 07:00 Chloride 105 mmol/L (98-107) 03/02/18 07:00 Carbon Dioxide 29 mmol/L (21-32) 03/02/18 07:00 Anion Gap 9 MMOL/L (8-16) 03/02/18 07:00 BUN 35 mg/dL (7-18) H 03/02/18 07:00 Creatinine 2.2 mg/dL (0.7-1.3) H 03/02/18 07:00 Creat Clearance w eGFR 30.68 (>60) 03/02/18 07:00 Random Glucose 103 mg/dL (74-106) D 03/02/18 07:00 Calcium 8.7 mg/dL (8.5-10.1) 03/02/18 07:00 Total Bilirubin 0.4 mg/dL (0.2-1.0) 03/02/18 07:00 AST 51 U/L (15-37) H D 03/02/18 07:00 ALT 76 U/L (12-78) 03/02/18 07:00 Alkaline Phosphatase 109 U/L (45-117) 03/02/18 07:00 Total Protein 7.0 g/dl (6.4-8.2) 03/02/18 07:00 Albumin 3.4 g/dl (3.4-5.0) 03/02/18 07:00 Urine Color Yellow 03/01/18 18:00 Urine Appearance Clear 03/01/18 18:00 Urine pH 5.0 (5.0-8.0) 03/01/18 18:00 Ur Specific [place] 1.020 (1.001-1.035) 03/01/18 18:00 Urine Protein 1+ (NEGATIVE) H 03/01/18 18:00 Urine Glucose (UA) 1+ (NEGATIVE) H 03/01/18 18:00 Urine Ketones Negative (NEGATIVE) 03/01/18 18:00 Urine Blood Negative (NEGATIVE) 03/01/18 18:00 Urine Nitrite Negative (NEGATIVE) 03/01/18 18:00 Urine Bilirubin Negative (<2.0 mg/dL) 03/01/18 18:00 Urine Urobilinogen Negative mg/dL (0.2-1.0) 03/01/18 18:00 Ur Leukocyte Esterase Negative (NEGATIVE) 03/01/18 18:00 Urine WBC (Auto) <1 /hpf (3-5) 03/01/18 18:00 Urine RBC (Auto) <1 /hpf (0-3) 03/01/18 18:00 Hyaline Casts 1 /lpf 03/01/18 18:00 Urine Mucus Rare 03/01/18 18:00 RPR Titer Nonreactive (NONREACTIVE) 03/02/18 07:00 Labs noted Assessment: 03/02/18 14:20 withdrawal sx High bp Abnormal urine result Plan: Continue detox Increase water hydration Clonidine one dose ordered Nifedipine schedule Continuous Bp monitoring
[2018-03-02] MEDS ORDERED: cloNIDine HCL 0.1 MG TABLET PO ONE ×2 (14:30→19:15)
--- NOTE | 2018-03-02 19:43 | CONSULT ---
[facility] Psychiatric Consult - Data Date of interview: 03/02/18 Admission source: [facility] Identifying data: Patient declines psychiatric interview.
[2018-03-02] MEDS: THIAMINE HCL 100 MG TABLET (FP) PO SCH (22:28)
[2018-03-03] MEDS: chlordiazePOXIDE HCL 25 MG CAPSULE PO SCH ×3 (06:04→17:06)
[2018-03-03] MEDS: NIFEdipine E.R 60 MG TABLET (UD) PO SCH (10:41)
[2018-03-03] MEDS: PRENATAL VITAMINS W/ FOLIC ACID TABLET (FP) PO SCH (10:41)
--- NOTE | 2018-03-03 14:32 | PN ---
[facility] CIWA - CIWA Score Nausea/Vomitin-No Nausea/No Vomiting Muscle Tremors: 4-Moderate,w/Arms Extend Anxiety: 4-Mod. Anxious/Guarded Agitation: 4-Moderately Restless Paroxysmal Sweats: 1-Minimal Palms Moist Orientation: 0-Oriented Tacttile Disturbances: 0-None Auditory Disturbances: 0-None Visual Disturbances: 0-None Headache: 0-None Present CIWA-Ar Total Score: 13 S Progress Note (SOAP) Subjective: ANXIETY, TREMORS,FATIGUE. Objective: 03/03/18 14:25 Vital Signs 03/03/18 03/03/18 03/03/18 06:48 09:07 13:47 Temperature 96.9 F L 95.8 F L 98.7 F Pulse Rate 52 L 99 H 74 Respiratory 18 16 18 Rate Blood Pressure 153/98 168/103 183/103 Laboratory Tests 03/01/18 03/02/18 03/02/18 18:00 07:00 07:00 WBC 5.8 RBC 4.35 Hgb 13.0 Hct 39.7 MCV 91.3 MCH 29.9 MCHC 32.7 RDW 15.0 Plt Count 205 MPV 9.3 Sodium 143 Potassium 3.7 Chloride 105 Carbon Dioxide 29 Anion Gap 9 BUN 35 H Creatinine 2.2 H Creat Clearance w eGFR 30.68 Random Glucose 103 D Calcium 8.7 Total Bilirubin 0.4 AST 51 H D ALT 76 Alkaline Phosphatase 109 Total Protein 7.0 Albumin 3.4 Urine Color Yellow Urine Appearance Clear Urine pH 5.0 Ur Specific [place] 1.020 Urine Protein 1+ H Urine Glucose (UA) 1+ H Urine Ketones Negative Urine Blood Negative Urine Nitrite Negative Urine Bilirubin Negative Urine Urobilinogen Negative Ur Leukocyte Esterase Negative Urine WBC (Auto) <1 Urine RBC (Auto) <1 Hyaline Casts 1 Urine Mucus Rare RPR Titer 03/02/18 07:00 WBC RBC Hgb Hct MCV MCH MCHC RDW Plt Count MPV Sodium Potassium Chloride Carbon Dioxide Anion Gap BUN Creatinine Creat Clearance w eGFR Random Glucose Calcium Total Bilirubin AST ALT Alkaline Phosphatase Total Protein Albumin Urine Color Urine Appearance Urine pH Ur Specific [place] Urine Protein Urine Glucose (UA) Urine Ketones Urine Blood Urine Nitrite Urine Bilirubin Urine Urobilinogen Ur Leukocyte Esterase Urine WBC (Auto) Urine RBC (Auto) Hyaline Casts Urine Mucus RPR Titer Nonreactive Assessment: 03/03/18 14:25 WITHDRAWAL SX Plan: CONTINUE DETOX
--- NOTE | 2018-03-03 17:13 | PN ---
[facility] Progress Note Note: Vital Signs Temperature 98.7 F 03/03/18 13:47 Pulse Rate 74 03/03/18 13:47 Respiratory Rate 18 03/03/18 13:47 Blood Pressure 183/103 03/03/18 13:47 O2 Sat by Pulse Oximetry (%) asymptomatic elevated BP. One time dose clonidine 0.2 mg increase PO fluids continue to monitor
[2018-03-03] MEDS ORDERED: cloNIDine HCL 0.1 MG TABLET PO ONE (17:30)
[2018-03-03] MEDS: chlordiazePOXIDE 5 MG CAPSULE PO SCH (22:22)
[2018-03-03] MEDS: THIAMINE HCL 100 MG TABLET (FP) PO SCH (22:22)
[2018-03-04] MEDS: chlordiazePOXIDE 5 MG CAPSULE PO SCH ×2 (06:08→10:33)
[2018-03-04 09:23] VITALS: BP 127/85; PULSE 67; TEMP 96.8
[2018-03-04] MEDS: PRENATAL VITAMINS W/ FOLIC ACID TABLET (FP) PO SCH (10:33)
[2018-03-04] MEDS: NIFEdipine E.R 60 MG TABLET (UD) PO SCH (10:33)
--- NOTE | 2018-03-04 16:32 | PN ---
[facility] Progress Note (SOAP) Subjective: DETOX COMPLETED. ALERT O X 3. NAD. PT HAS PCP AT [place], [place] FOR MEDICAL MANAGEMENT. Objective: 03/04/18 16:31 Vital Signs 03/04/18 09:20 Temperature 96.8 F L Pulse Rate 67 Respiratory 18 Rate Blood Pressure 127/85 Laboratory Tests 03/01/18 03/02/18 03/02/18 18:00 07:00 07:00 WBC 5.8 RBC 4.35 Hgb 13.0 Hct 39.7 MCV 91.3 MCH 29.9 MCHC 32.7 RDW 15.0 Plt Count 205 MPV 9.3 Sodium 143 Potassium 3.7 Chloride 105 Carbon Dioxide 29 Anion Gap 9 BUN 35 H Creatinine 2.2 H Creat Clearance w eGFR 30.68 Random Glucose 103 D Calcium 8.7 Total Bilirubin 0.4 AST 51 H D ALT 76 Alkaline Phosphatase 109 Total Protein 7.0 Albumin 3.4 Urine Color Yellow Urine Appearance Clear Urine pH 5.0 Ur Specific [place] 1.020 Urine Protein 1+ H Urine Glucose (UA) 1+ H Urine Ketones Negative Urine Blood Negative Urine Nitrite Negative Urine Bilirubin Negative Urine Urobilinogen Negative Ur Leukocyte Esterase Negative Urine WBC (Auto) <1 Urine RBC (Auto) <1 Hyaline Casts 1 Urine Mucus Rare RPR Titer 03/02/18 07:00 WBC RBC Hgb Hct MCV MCH MCHC RDW Plt Count MPV Sodium Potassium Chloride Carbon Dioxide Anion Gap BUN Creatinine Creat Clearance w eGFR Random Glucose Calcium Total Bilirubin AST ALT Alkaline Phosphatase Total Protein Albumin Urine Color Urine Appearance Urine pH Ur Specific [place] Urine Protein Urine Glucose (UA) Urine Ketones Urine Blood Urine Nitrite Urine Bilirubin Urine Urobilinogen Ur Leukocyte Esterase Urine WBC (Auto) Urine RBC (Auto) Hyaline Casts Urine Mucus RPR Titer Nonreactive Assessment: 03/04/18 16:31 MEDICALLY STABLE Plan: D/C PT TODAY.
--- NOTE | 2018-03-04 16:34 | DS ---
[facility] Detox Discharge Summary Admission Date: 03/01/18 Discharge Date: 03/04/18 - History Additional Comments: DETOX COMPLETED. ALERT O X 3. NAD. FOLLOW UP AT [place], [place] FOR MEDICAL MANAGEMENT. Pertinent Past History: PLEASE SEE DX BELOW - Physical Exam Results Vital Signs: Vital Signs Temperature 96.8 F L 03/04/18 09:20 Pulse Rate 67 03/04/18 09:20 Respiratory Rate 18 03/04/18 09:20 Blood Pressure 127/85 03/04/18 09:20 O2 Sat by Pulse Oximetry (%) Pertinent Admission Physical Exam Findings: WITHDRAWAL SX Laboratory Tests 03/01/18 03/02/18 03/02/18 18:00 07:00 07:00 WBC 5.8 RBC 4.35 Hgb 13.0 Hct 39.7 MCV 91.3 MCH 29.9 MCHC 32.7 RDW 15.0 Plt Count 205 MPV 9.3 Sodium 143 Potassium 3.7 Chloride 105 Carbon Dioxide 29 Anion Gap 9 BUN 35 H Creatinine 2.2 H Creat Clearance w eGFR 30.68 Random Glucose 103 D Calcium 8.7 Total Bilirubin 0.4 AST 51 H D ALT 76 Alkaline Phosphatase 109 Total Protein 7.0 Albumin 3.4 Urine Color Yellow Urine Appearance Clear Urine pH 5.0 Ur Specific [place] 1.020 Urine Protein 1+ H Urine Glucose (UA) 1+ H Urine Ketones Negative Urine Blood Negative Urine Nitrite Negative Urine Bilirubin Negative Urine Urobilinogen Negative Ur Leukocyte Esterase Negative Urine WBC (Auto) <1 Urine RBC (Auto) <1 Hyaline Casts 1 Urine Mucus Rare RPR Titer 03/02/18 07:00 WBC RBC Hgb Hct MCV MCH MCHC RDW Plt Count MPV Sodium Potassium Chloride Carbon Dioxide Anion Gap BUN Creatinine Creat Clearance w eGFR Random Glucose Calcium Total Bilirubin AST ALT Alkaline Phosphatase Total Protein Albumin Urine Color Urine Appearance Urine pH Ur Specific [place] Urine Protein Urine Glucose (UA) Urine Ketones Urine Blood Urine Nitrite Urine Bilirubin Urine Urobilinogen Ur Leukocyte Esterase Urine WBC (Auto) Urine RBC (Auto) Hyaline Casts Urine Mucus RPR Titer Nonreactive - Treatment Hospital Course: Detox Protocol Followed, Detoxed Safely, Responded well, Discharged Condition Good, Rehab Referral Accepted Patient has Accepted a Re[facility] - Medication Discharge Medications: Ambulatory Orders NK [No Known Home Medication] 09/09/18 - Diagnosis (1) Alcohol dependence with uncomplicated withdrawal Status: Acute (2) Hypertension Status: Chronic Qualifiers: Hypertension type: essential hypertension Qualified Code(s): I10 - Essential (primary) hypertension (3) Nicotine dependence Status: Acute Qualifiers: Nicotine product type: cigarettes Substance use status: in withdrawal Qualified Code(s): F17.213 - Nicotine dependence, cigarettes, with withdrawal (4) History of chest tube placement Status: Resolved (5) Status post skin graft Status: Resolved (6) Cocaine dependence, uncomplicated Status: Acute - AMA Did Patient Leave Against Medical Advice: No
[2018-03-04] MEDS ORDERED: chlordiazePOXIDE HCL 10 MG CAPSULE PO SCH ×2 (17:00→23:00)
== END 2018-03-04 12:00 | disposition home or self-care (01) | DRG 521 ==
LOC: YASAS 16:33 → Y3N 19:36
PROC: HZ2ZZZZ Detoxification Services for Substance Abuse Treatment (ICD-10-PCS; principal; 2018-03-01)
DX: F10.230 Alcohol dependence with withdrawal, uncomplicated (principal); F20.9 Schizophrenia, unspecified; F14.20 Cocaine dependence, uncomplicated; F17.210 Nicotine dependence, cigarettes, uncomplicated; I10 Essential (primary) hypertension; R82.90 Unspecified abnormal findings in urine; Z94.5 Skin transplant status; Z98.890 Other specified postprocedural states
CPT/HCPCS: 36415; 80053; 81003; 81015; 85027; 86593; 93005; 93010; J0735

== ENCOUNTER 2018-05-04 12:35 | Inpatient (IN) | payer OTHER ==
[2018-05-04 14:40] VITALS: BMI 26.6
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
[2018-05-04] MEDS ORDERED: ACETAMINOPHEN 325 MG TABLET (FP) PO PRN (16:58)
[2018-05-04] MEDS ORDERED: MAGNESIUM CITRATE 300 ML BOTTLE PO PRN (16:58)
[2018-05-04] MEDS ORDERED: IBUPROFEN 400 MG TABLET (FP) PO PRN (16:58)
[2018-05-04] MEDS ORDERED: LOPERAMIDE HCL 2 MG CAPSULE PO PRN (16:58)
[2018-05-04] MEDS ORDERED: guaiFENesin/D-METHORPHAN HB 10 ML UNIT-DOSE CUPS PO PRN (16:58)
[2018-05-04] MEDS ORDERED: MAGNESIUM HYDROX 2400MG/30ML ORAL SUSPENSION 30 ML CUP PO PRN (16:58)
[2018-05-04] MEDS ORDERED: P-EPHED 60MG/TRIPROLIDI 2.5MG TABLET PO PRN (16:58)
[2018-05-04] MEDS ORDERED: MENTHOL/PHENOL 1 EACH UD MM PRN (16:58)
[2018-05-04] MEDS ORDERED: MAG HYDROX/AL HYDROX/SIMETH 30 ML UNIT-DOSE CUP PO PRN (16:58)
[2018-05-04] MEDS ORDERED: chlordiazePOXIDE HCL 25 MG CAPSULE PO ONE (17:30)
--- NOTE | 2018-05-04 19:25 | PN ---
S Progress Note Note: Vital Signs 05/04/18 05/04/18 14:38 18:45 Temperature 99.0 F 98.1 F Pulse Rate 79 61 Respiratory 20 19 Rate Blood Pressure 116/73 167/110 H Assessment: Elevated blood pressure: Plan: CloniDine 0.1 mg PO Once. Continue to f/u.
[2018-05-04] MEDS ORDERED: cloNIDine HCL 0.1 MG TABLET PO ONE (19:26)
[2018-05-04] MEDS ORDERED: MELATONIN 5 MG TABLETS PO PRN (22:00)
[2018-05-04] MEDS: chlordiazePOXIDE HCL 25 MG CAPSULE PO SCH (23:06)
[2018-05-04] MEDS: THIAMINE HCL 100 MG TABLET (FP) PO SCH (23:07)
[2018-05-05 02:54] LABS: URINE APPEARANCE SLCLOUDY; URINE BILIRUBIN NEGATIVE (<2.0 mg/dL); URINE COLOR YELLOW; URINE GLUCOSE (UA) NEGATIVE (NEGATIVE); URINE KETONE NEGATIVE (NEGATIVE); URINE LEUK ESTERASE 2+ (NEGATIVE); URINE NITRITE NEGATIVE (NEGATIVE); URINE PROTEIN 1+ (NEGATIVE); URINE UROBILINOGEN NEGATIVE mg/dL (0.2-1.0)
[2018-05-05 03:03] LABS: EPI CELLS RARE /HPF (FEW); URINE BACTERIA RARE /hpf (NONE SEEN); URINE HYALINE CAST 18 /lpf; URINE MUCUS RARE
[2018-05-05] MEDS: chlordiazePOXIDE HCL 25 MG CAPSULE PO SCH ×4 (06:19→22:17)
[2018-05-05 09:55] LABS: HEMATOCRIT 38.2 % (35.4-49); HEMOGLOBIN 12.2 GM/dL (11.7-16.9); MCH 29.3 pg (25.7-33.7); MCHC 32.1 g/dl (32.0-35.9); MEAN CELL VOLUME 91.2 fl (80-96); MEAN PLT VOLUME 8.6 fl (7.5-11.1); PLATELET COUNT 253 K/MM3 (134-434); RBC 4.18 M/mm3 (4.00-5.60); RDW 15.4 % (11.9-15.9)
[2018-05-05] MEDS ORDERED: NIFEdipine E.R 60 MG TABLET (UD) PO SCH (10:00)
[2018-05-05 10:06] LABS: ALBUMIN 3.6 g/dl (3.4-5.0); ALK PHOS 94 U/L (45-117); ANION GAP 11 MMOL/L (8-16); BILIRUBIN,TOTAL 0.7 mg/dL (0.2-1); BLOOD UREA NITROGEN 55 mg/dL (7-18); CALCIUM 8.5 mg/dL (8.5-10.1); CHLORIDE 103 mmol/L (98-107); CO2 26 mmol/L (21-32); CREATININE 3.1 mg/dL (0.55-1.3); GLUCOSE,RANDOM 73 mg/dL (74-106); POTASSIUM 4.3 mmol/L (3.5-5.1); SGOT/AST 22 U/L (15-37); SGPT/ALT 20 U/L (13-61); SODIUM 139 mmol/L (136-145)
[2018-05-05] MEDS: PRENATAL VITAMINS W/ FOLIC ACID TABLET (FP) PO SCH (10:24)
[2018-05-05] MEDS: NIFEdipine E.R 60 MG TABLET (UD) PO SCH (10:25)
--- NOTE | 2018-05-05 11:10 | PN ---
[facility] CIWA - CIWA Score Nausea/Vomitin-No Nausea/No Vomiting Muscle Tremors: 3 Anxiety: 1-Mildly Anxious Agitation: 1-Slight > Activity Paroxysmal Sweats: 1-Minimal Palms Moist Orientation: 1-Uncertain about Date Tacttile Disturbances: 1-Very Mild Itch/Numbness Auditory Disturbances: 1-Very Mild Visual Disturbances: 0-None Headache: 1-Very Mild CIWA-Ar Total Score: 10 [facility] Progress Note (SOAP) Subjective: long history of hypertension treated with nifedipine last dose 05/02/18 tremor anxiety restlessness sweat received nifedipine today at 10 am Objective: 05/05/18 11:06 Vital Signs Temperature 98.1 F 05/05/18 09:09 Pulse Rate 75 05/05/18 09:09 Respiratory Rate 18 05/05/18 09:09 Blood Pressure 154/91 05/05/18 09:09 O2 Sat by Pulse Oximetry (%) Laboratory Last Values WBC 5.0 K/mm3 (4.0-10.0) 05/05/18 07:00 RBC 4.18 M/mm3 (4.00-5.60) 05/05/18 07:00 Hgb 12.2 GM/dL (11.7-16.9) 05/05/18 07:00 Hct 38.2 % (35.4-49) 05/05/18 07:00 MCV 91.2 fl (80-96) 05/05/18 07:00 MCH 29.3 pg (25.7-33.7) 05/05/18 07:00 MCHC 32.1 g/dl (32.0-35.9) 05/05/18 07:00 RDW 15.4 % (11.9-15.9) 05/05/18 07:00 Plt Count 253 K/MM3 (134-434) D 05/05/18 07:00 MPV 8.6 fl (7.5-11.1) 05/05/18 07:00 Sodium 139 mmol/L (136-145) 05/05/18 07:00 Potassium 4.3 mmol/L (3.5-5.1) 05/05/18 07:00 Chloride 103 mmol/L (98-107) 05/05/18 07:00 Carbon Dioxide 26 mmol/L (21-32) 05/05/18 07:00 Anion Gap 11 MMOL/L (8-16) 05/05/18 07:00 BUN 55 mg/dL (7-18) H 05/05/18 07:00 Creatinine 3.1 mg/dL (0.55-1.3) H 05/05/18 07:00 Creat Clearance w eGFR 20.66 (>60) 05/05/18 07:00 Random Glucose 73 mg/dL (74-106) L 05/05/18 07:00 Calcium 8.5 mg/dL (8.5-10.1) 05/05/18 07:00 Total Bilirubin 0.7 mg/dL (0.2-1) 05/05/18 07:00 AST 22 U/L (15-37) 05/05/18 07:00 ALT 20 U/L (13-61) 05/05/18 07:00 Alkaline Phosphatase 94 U/L (45-117) 05/05/18 07:00 Total Protein 7.0 g/dl (6.4-8.2) 05/05/18 07:00 Albumin 3.6 g/dl (3.4-5.0) 05/05/18 07:00 Urine Color Yellow 05/04/18 21:40 Urine Appearance Slcloudy 05/04/18 21:40 Urine pH 5.0 (5.0-8.0) 05/04/18 21:40 Ur Specific [place] 1.024 (1.010-1.035) 05/04/18 21:40 Urine Protein 1+ (NEGATIVE) H 05/04/18 21:40 Urine Glucose (UA) Negative (NEGATIVE) 05/04/18 21:40 Urine Ketones Negative (NEGATIVE) 05/04/18 21:40 Urine Blood Negative (NEGATIVE) 05/04/18 21:40 Urine Nitrite Negative (NEGATIVE) 05/04/18 21:40 Urine Bilirubin Negative (<2.0 mg/dL) 05/04/18 21:40 Urine Urobilinogen Negative mg/dL (0.2-1.0) 05/04/18 21:40 Ur Leukocyte Esterase 2+ (NEGATIVE) H 05/04/18 21:40 Urine WBC (Auto) 81 /hpf (3-5) 05/04/18 21:40 Urine RBC (Auto) 1 /hpf (0-3) 05/04/18 21:40 Ur Epithelial Cells Rare /HPF (FEW) 05/04/18 21:40 Urine Bacteria Rare /hpf (NONE SEEN) 05/04/18 21:40 Hyaline Casts 18 /lpf 05/04/18 21:40 Urine Mucus Rare 05/04/18 21:40 lab noted repeat camp 05/05/18 11:10 Assessment: 05/05/18 11:11 withdrawal sx renal failure Plan: continue detox dietary referral
[2018-05-05] MEDS: chlordiazePOXIDE HCL 25 MG CAPSULE PO PRN (14:38)
--- NOTE | 2018-05-05 16:07 | CONSULT ---
[facility] Psychiatric Consult - Data Date of interview: 05/05/18 Admission source: [facility] Identifying data: Patient is a 62 year old single male, without children, unemployed (denies receiving financial assistance) and is currently homeless. This is one of multiple admissions for patient. Patient admitted to for alcohol and cocaine dependence. Substance Abuse History: Smoking Cessation. Smoking history: Former smoker. Have you smoked in the past 12 months: Yes. Aproximately how many cigarettes per day: 2. If you are a former smoker, when did you quit?: 02/2018. Cigars Per Day: 0. Hx Chewing Tobacco Use: No. Initiated information on smoking cessation: Yes. 'Breaking Loose' booklet given: 05/04/18. - Substances Abused. Crack. Route: Smoking. Frequency: Daily. Amount used: $60-80. Age of first use: 28. Date of Last Use: 05/03/18. Alcohol-wine/bourbon/ beer. Route: Oral. Frequency: Daily. Amount used: 2-3 pts./2-3 (12 oz.). Age of first use: 21. Date of Last Use: 05/03/18 Psychiatric History: Patient reports multiple psychiatric hospitalization ( [facility], unable to recall other hospitals). Patient denies h/o outpatient psychiatric care. No contact with mental health provider. States he is currently taking seroquel 150mg qhs and receives his prescriptions from different emergency rooms. Seroquel not noted on pharmacy claims but as per history in detox, patient has accepted seroquel in the past. Diagnosis of paranoid schizophrenia. States the voices "never really go away." He reports h/ o paranoia but none at the moment. Patient irritable throughout periods of the assessment.Patient denies h/o suicide attempt. Patient agreeable to continuing seroquel qhs. At present, patient is irritable but redirectable. Physical/Sexual Abuse/Trauma History: denies. Mental Status Exam - Mental Status Exam Alert and Oriented to: Time (mildly paranoid), Place, Person Cognitive Function: Good Patient Appearance: Unkempt Mood: Irritable (slightly irritable) Affect: Mood Congruent Patient Behavior: Uncooperative, Guarded (slightly paranoid), Cooperative (At first was uncooperative but eventually was able to speak to speak to press writer) Speech Pattern: Appropriate Voice Loudness: Moderately Soft/Quiet Thought Process: Goal Oriented Thought Disorder: Not Present Hallucinations: Auditory ("hears voices all the time") Suicidal Ideation: Denies Homicidal Ideation: Denies Insight/Judgement: Poor Sleep: Fair Appetite: Fair Muscle strength/Tone: Normal Gait/Station: Normal Psychiatric Findings - Problem List ([place] 1, 2,3) (1) Paranoid schizophrenia Current Visit: Yes Status: Chronic (2) Alcohol dependence with uncomplicated withdrawal Current Visit: Yes Status: Acute (3) Cocaine dependence, uncomplicated Current Visit: No Status: Chronic - Initial Treatment Plan Initial Treatment Plan: Psychoeducation provided. Detoxification in progress. Will order Seroquel 100mg qhs. Benefits and side effects discussed. Verbal consent given.
--- NOTE | 2018-05-05 16:15 | EKG ---
Test Reason : Blood Pressure : / mmHG Vent. Rate : 057 BPM Atrial Rate : 057 BPM P-R Int : 164 ms QRS Dur : 118 ms QT Int : 444 ms P-R-T Axes : 066 -23 267 degrees QTc Int : 432 ms SINUS BRADYCARDIA NON-SPECIFIC INTRA-VENTRICULAR CONDUCTION DELAY ABNORMAL ECG WHEN COMPARED WITH ECG OF 01-MAR-2018 20:43, T waves now worsened in anterolateral leads Confirmed by MD Matthew, Tristan ([id number]) on 05/05/2018 4:15:15 PM Referred By: Confirmed By:Tristan Castro MD
[2018-05-05] MEDS: QUEtiapine FUMARATE 100 MG TABLET (FP) PO SCH (22:17)
[2018-05-05] MEDS: THIAMINE HCL 100 MG TABLET (FP) PO SCH (22:17)
[2018-05-06] MEDS: chlordiazePOXIDE HCL 25 MG CAPSULE PO SCH ×3 (05:30→16:48)
[2018-05-06] MEDS: PRENATAL VITAMINS W/ FOLIC ACID TABLET (FP) PO SCH (10:24)
--- NOTE | 2018-05-06 10:50 | PN ---
S CIWA - CIWA Score Nausea/Vomitin-Mild Nausea/No Vomiting Muscle Tremors: 1-None Visible, but [place] Anxiety: 1-Mildly Anxious Agitation: 1-Slight > Activity Paroxysmal Sweats: 1-Minimal Palms Moist Orientation: 0-Oriented Tacttile Disturbances: 0-None Auditory Disturbances: 0-None Visual Disturbances: 0-None Headache: 0-None Present CIWA-Ar Total Score: 5 [facility] Progress Note (SOAP) Subjective: pt states feeling well overall with the detox protocol Vital Signs - 24 hr 05/05/18 05/05/18 05/05/18 15:53 17:22 22:14 Temperature 98.5 F 98.1 F 97.9 F Pulse Rate 68 67 67 Respiratory 18 16 16 Rate Blood Pressure 150/88 139/85 150/84 05/06/18 05/06/18 05/06/18 00:30 03:30 06:00 Temperature 97.5 F L Pulse Rate 69 Respiratory 18 18 18 Rate Blood Pressure 144/87 05/06/18 09:57 Temperature 98.1 F Pulse Rate 67 Respiratory 18 Rate Blood Pressure 145/98 Laboratory Tests 05/04/18 05/05/18 05/05/18 21:40 07:00 07:00 WBC 5.0 RBC 4.18 Hgb 12.2 Hct 38.2 MCV 91.2 MCH 29.3 MCHC 32.1 RDW 15.4 Plt Count 253 D MPV 8.6 Sodium 139 Potassium 4.3 Chloride 103 Carbon Dioxide 26 Anion Gap 11 BUN 55 H Creatinine 3.1 H Creat Clearance w eGFR 20.66 Random Glucose 73 L Calcium 8.5 Total Bilirubin 0.7 AST 22 ALT 20 Alkaline Phosphatase 94 Total Protein 7.0 Albumin 3.6 Urine Color Yellow Urine Appearance Slcloudy Urine pH 5.0 Ur Specific [place] 1.024 Urine Protein 1+ H Urine Glucose (UA) Negative Urine Ketones Negative Urine Blood Negative Urine Nitrite Negative Urine Bilirubin Negative Urine Urobilinogen Negative Ur Leukocyte Esterase 2+ H Urine WBC (Auto) 81 Urine RBC (Auto) 1 Ur Epithelial Cells Rare Urine Bacteria Rare Hyaline Casts 18 Urine Mucus Rare RPR Titer 05/05/18 07:00 WBC RBC Hgb Hct MCV MCH MCHC RDW Plt Count MPV Sodium Potassium Chloride Carbon Dioxide Anion Gap BUN Creatinine Creat Clearance w eGFR Random Glucose Calcium Total Bilirubin AST ALT Alkaline Phosphatase Total Protein Albumin Urine Color Urine Appearance Urine pH Ur Specific [place] Urine Protein Urine Glucose (UA) Urine Ketones Urine Blood Urine Nitrite Urine Bilirubin Urine Urobilinogen Ur Leukocyte Esterase Urine WBC (Auto) Urine RBC (Auto) Ur Epithelial Cells Urine Bacteria Hyaline Casts Urine Mucus RPR Titer Nonreactive BP a bit high, on Nifedipine 120mg, chronic renal dz- Cr 2.2, at admission 3.1, repeat pending for today, 1+ proteinuria a/p alcohol detox protocol- pt doing well, with HTN and CRI- repeat labs and f/ u with PCP
[2018-05-06 11:01] LABS: ALBUMIN 3.6 g/dl (3.4-5.0); ALK PHOS 94 U/L (45-117); ANION GAP 9 MMOL/L (8-16); BILIRUBIN,TOTAL 0.2 mg/dL (0.2-1); BLOOD UREA NITROGEN 48 mg/dL (7-18); CALCIUM 8.5 mg/dL (8.5-10.1); CHLORIDE 105 mmol/L (98-107); CO2 26 mmol/L (21-32); CREATININE 2.3 mg/dL (0.55-1.3); GLUCOSE,RANDOM 79 mg/dL (74-106); POTASSIUM 4.4 mmol/L (3.5-5.1); SGOT/AST 17 U/L (15-37); SGPT/ALT 18 U/L (13-61); SODIUM 140 mmol/L (136-145); TOT PROT 7.2 g/dl (6.4-8.2)
[2018-05-06] MEDS: NIFEdipine E.R 60 MG TABLET (UD) PO SCH (12:03)
[2018-05-06] MEDS ORDERED: cloNIDine HCL 0.1 MG TABLET PO ONE (14:45)
[2018-05-06] MEDS: chlordiazePOXIDE HCL 25 MG CAPSULE PO PRN (15:04)
[2018-05-06] MEDS: chlordiazePOXIDE 5 MG CAPSULE PO SCH (22:37)
[2018-05-06] MEDS: THIAMINE HCL 100 MG TABLET (FP) PO SCH (22:37)
[2018-05-06] MEDS: QUEtiapine FUMARATE 100 MG TABLET (FP) PO SCH (22:37)
[2018-05-07] MEDS: chlordiazePOXIDE 5 MG CAPSULE PO SCH ×3 (05:50→18:33)
[2018-05-07] MEDS: PRENATAL VITAMINS W/ FOLIC ACID TABLET (FP) PO SCH (10:35)
[2018-05-07] MEDS: NIFEdipine E.R 60 MG TABLET (UD) PO SCH (10:35)
--- NOTE | 2018-05-07 15:04 | PN ---
S Progress Note (SOAP) Subjective: Tremors, Body Aches, Diarrhea. Objective: PATIENT A & O X 3, OBSERVED AMBULATING ON UNIT. NO ACUTE DISTRESS. PATIENT DENIES CHEST PAIN. 05/07/18 15:02 Vital Signs Temperature 98.1 F 05/07/18 13:24 Pulse Rate 65 05/07/18 13:24 Respiratory Rate 18 05/07/18 13:24 Blood Pressure 148/91 05/07/18 13:24 O2 Sat by Pulse Oximetry (%) Laboratory Tests 05/04/18 05/05/18 05/05/18 21:40 07:00 07:00 WBC 5.0 RBC 4.18 Hgb 12.2 Hct 38.2 MCV 91.2 MCH 29.3 MCHC 32.1 RDW 15.4 Plt Count 253 D MPV 8.6 Sodium 139 Potassium 4.3 Chloride 103 Carbon Dioxide 26 Anion Gap 11 BUN 55 H Creatinine 3.1 H Creat Clearance w eGFR 20.66 Random Glucose 73 L Calcium 8.5 Total Bilirubin 0.7 AST 22 ALT 20 Alkaline Phosphatase 94 Total Protein 7.0 Albumin 3.6 Urine Color Yellow Urine Appearance Slcloudy Urine pH 5.0 Ur Specific [place] 1.024 Urine Protein 1+ H Urine Glucose (UA) Negative Urine Ketones Negative Urine Blood Negative Urine Nitrite Negative Urine Bilirubin Negative Urine Urobilinogen Negative Ur Leukocyte Esterase 2+ H Urine WBC (Auto) 81 Urine RBC (Auto) 1 Ur Epithelial Cells Rare Urine Bacteria Rare Hyaline Casts 18 Urine Mucus Rare RPR Titer 05/05/18 05/06/18 07:00 07:00 WBC RBC Hgb Hct MCV MCH MCHC RDW Plt Count MPV Sodium 140 Potassium 4.4 Chloride 105 Carbon Dioxide 26 Anion Gap 9 BUN 48 H Creatinine 2.3 H Creat Clearance w eGFR 29.15 Random Glucose 79 Calcium 8.5 Total Bilirubin 0.2 AST 17 ALT 18 Alkaline Phosphatase 94 Total Protein 7.2 Albumin 3.6 Urine Color Urine Appearance Urine pH Ur Specific [place] Urine Protein Urine Glucose (UA) Urine Ketones Urine Blood Urine Nitrite Urine Bilirubin Urine Urobilinogen Ur Leukocyte Esterase Urine WBC (Auto) Urine RBC (Auto) Ur Epithelial Cells Urine Bacteria Hyaline Casts Urine Mucus RPR Titer Nonreactive LABS NOTED. Assessment: 05/07/18 15:03 WITHDRAWAL SYMPTOMS. RENAL IMPAIRMENT. 05/07/18 15:05 Plan: CONTINUE DETOX. D/C IBUPROFEN AND MAGNESIUM-CONTAINING MEDS. FOR ABNORMAL ADMISSION RENAL LAB VALUES.
[2018-05-07] MEDS: chlordiazePOXIDE HCL 10 MG CAPSULE PO SCH (22:46)
[2018-05-07] MEDS: QUEtiapine FUMARATE 100 MG TABLET (FP) PO SCH (22:46)
[2018-05-07] MEDS: THIAMINE HCL 100 MG TABLET (FP) PO SCH (22:46)
[2018-05-08] MEDS: chlordiazePOXIDE HCL 10 MG CAPSULE PO SCH ×2 (05:43→11:06)
[2018-05-08 09:33] VITALS: BP 160/88; PULSE 59; TEMP 97.9
[2018-05-08] MEDS: PRENATAL VITAMINS W/ FOLIC ACID TABLET (FP) PO SCH (11:00)
[2018-05-08] MEDS: NIFEdipine E.R 60 MG TABLET (UD) PO SCH (11:01)
--- NOTE | 2018-05-08 15:28 | DS ---
[facility] Detox Discharge Summary Admission Date: 05/04/18 Discharge Date: 05/08/18 - History Present History: Alcohol Dependence Pertinent Past History: 62 y/o male with a long hx of alcohol addiction completed alcohol detox protocol. Pt did not have insurance coverage for rehab and was discharged to home - Physical Exam Results Vital Signs: Vital Signs Temperature 97.9 F 05/08/18 09:32 Pulse Rate 59 L 05/08/18 09:32 Respiratory Rate 18 05/08/18 09:32 Blood Pressure 160/88 05/08/18 09:32 O2 Sat by Pulse Oximetry (%) - Treatment Hospital Course: Detox Protocol Followed, Detoxed Safely, Responded well, Discharged Condition Good - Medication Discharge Medications: Ambulatory Orders Nifedipine [Adalat cc] 120 mg PO DAILY 05/04/18 - Diagnosis (1) Alcohol dependence with uncomplicated withdrawal Status: Acute (2) Nicotine dependence Status: Acute Qualifiers: Nicotine product type: cigarettes Substance use status: in withdrawal Qualified Code(s): F17.213 - Nicotine dependence, cigarettes, with withdrawal (3) Hypertension Status: Chronic Qualifiers: Hypertension type: essential hypertension Qualified Code(s): I10 - Essential (primary) hypertension - AMA Did Patient Leave Against Medical Advice: No
== END 2018-05-08 11:50 | disposition home or self-care (01) | DRG 521 ==
LOC: YASAS 12:35 → Y6N 17:10
PROC: HZ2ZZZZ Detoxification Services for Substance Abuse Treatment (ICD-10-PCS; principal; 2018-05-04)
DX: F10.230 Alcohol dependence with withdrawal, uncomplicated (principal); F20.0 Paranoid schizophrenia; F14.20 Cocaine dependence, uncomplicated; F17.213 Nicotine dependence, cigarettes, with withdrawal; I10 Essential (primary) hypertension
CPT/HCPCS: 36415; 80053; 81003; 81015; 85027; 86593; 93005; 93010; J0735

== ENCOUNTER 2018-07-19 12:07 | Inpatient (IN) | payer OTHER ==
[2018-07-19 12:30] VITALS: BMI 26.9
--- NOTE | 2018-07-19 12:41 | HP ---
CIWA Score Nausea/Vomitin Muscle Tremors: 3 Anxiety: 2 Agitation: 1-Slight > Activity Paroxysmal Sweats: 2 Orientation: 1-Uncertain about Date Tacttile Disturbances: 1-Very Mild Itch/Numbness Auditory Disturbances: 1-Very Mild Visual Disturbances: 1-Very Mild Sensitivity Headache: 1-Very Mild CIWA-Ar Total Score: 15 - Admission Criteria [facility]ASAS Guidelines: Admission for Medically Managed Detox: Requires at least one of the followin. CIWA greater than 12 2. Seizures within the past 24 hours 3. Delirium tremens within the past 24 hours 4. Hallucinations within the past 24 hours 5. Acute intervention needed for co occurring medical disorder 6. Acute intervention needed for co occurring psychiatric disorder 7. Severe withdrawal that cannot be handled at a lower level of care (continued vomiting, continued diarrhea, abnormal vital signs) requiring intravenous medication and/or fluids 8. Admission ROS S - [facility] Chief Complaint: WITHDRAWAL SYMPTOMS Allergies/Adverse Reactions: Allergies Allergy/AdvReac Type Severity Reaction Status Date / Time No Known Allergies Allergy Verified 07/19/18 12:31 History of Present Illness: 62 Y.O. MAN WITH AN EXTENSIVE HISTORY OF ALCOHOL AND COCAINE DEPENDENCE IS HERE SEEKING DETOX SERVICES. PT. HAS HAD MULTIPLE ADMISSIONS HERE FOR DETOX WITH THE LAST BEING ON 05/04/18-05/08/18. DOES NOT HAVE A SIGNIFICANT PERIOD OF SOBRIETY. Exam Limitations: No Limitations - Ebola screening Have you traveled outside of the country in the last 21 days: No (N) Have you had contact with anyone from an Ebola affected area: No Have you been sick,other than usual withdrawal symptoms: No Do you have a fever: No - Review of Systems Constitutional: Night Sweats EENT: reports: Blurred Vision, Nose Congestion Respiratory: reports: Cough Cardiac: reports: No Symptoms Reported GI: reports: Diarrhea, Abdominal cramping : reports: No Symptoms Reported Musculoskeletal: reports: Joint Stiffness (LEFT LEG PAIN) Integumentary: reports: No Symptoms Reported Neuro: reports: Tremors Endocrine: reports: No Symptoms Reported Hematology: reports: No Symptoms Reported Psychiatric: reports: Judgement Intact, Mood/Affect Appropiate, Orientated x3, other (SCHIZOPHRENIA) Other Systems: Reviewed and Negative Patient History - Patient Medical History Hx Anemia: No Hx Asthma: No Hx Chronic Obstructive Pulmonary Disease (COPD): No Hx Cancer: No Hx Cardiac Disorders: No Hx Congestive Heart Failure: No Hx Hypertension: Yes (Takes nifedipine) Hx Hypercholesterolemia: No Hx Pacemaker: No HX Cerebrovascular Accident: No Hx Seizures: No Hx Dementia: No Hx Diabetes: No Hx Gastrointestinal Disorders: No Hx Liver Disease: No Hx Genitourinary Disorders: No Hx Sexually Transmitted Disorders: No Hx Renal Disease (ESRD): No Hx Thyroid Disease: No Hx Human Immunodeficiency Virus (HIV): No (NEGATIVE HX last 2012) Hx Hepatitis C: No Hx Depression: No Hx Suicide Attempt: No Hx Bipolar Disorder: No Hx Schizophrenia: Yes - Patient Surgical History Past Surgical History: Yes Hx Neurologic Surgery: No Hx Cataract Extraction: No Hx Cardiac Surgery: No Hx Lung Surgery: Yes (R chest tube 2013) Hx Breast Surgery: No Hx Breast Biopsy: No Hx Abdominal Surgery: No Hx Appendectomy: No Hx Cholecystectomy: No Hx Genitourinary Surgery: No Hx Section: No Hx Orthopedic Surgery: Yes Hx Hysterectomy: No Other Surgical History: right lateral keloid removed unable to remember when Anesthesia Reaction: No - PPD History Previous Implant?: Yes Documented Results: Negative w/proof Implanted On Prior [facility] Admission?: Yes Date: 03/03/18 Results: 0 mm PPD to be Administered?: No - Reproductive History Patient is a Female of Child Bearing Age (11 -55 yrs old): No - Smoking Cessation Smoking history: Former smoker Have you smoked in the past 12 months: Yes Aproximately how many cigarettes per day: 2 If you are a former smoker, when did you quit?: 02/2018 Cigars Per Day: 0 Hx Chewing Tobacco Use: No Initiated information on smoking cessation: Yes 'Breaking Loose' booklet given: 07/19/18 - Substance & Tx. History Hx Alcohol Use: Yes Hx Substance Use: Yes Substance Use Type: Alcohol, Cocaine Hx Substance Use Treatment: Yes (Detox: 04/2018) - Substances Abused Alcohol Route: Oral Frequency: Daily Amount used: 10 DRINKS VOALEXEIA CHARLYI Age of first use: 21 Date of Last Use: 07/18/18 Cocaine Route: Smoking Frequency: 1-2 times per week Amount used: $50-100 Age of first use: Date of Last Use: 07/18/18 Family Disease History - Family Disease History Family Disease History: Heart Disease: Father ([place] ), Mother (HTN), Brother (HTN,alcoholic,) Admission Physical Exam [facility] - Vital Signs Vital Signs: Vital Signs - 24 hr 07/19/18 12:21 Temperature 98.5 F Pulse Rate 62 Respiratory 18 Rate Blood Pressure 134/82 - Physical General Appearance: Yes: No Apparent Distress, Nourished, Appropriately Dressed HEENTM: Yes: Hearing grossly Normal, Normal ENT Inspection, Normocephalic Respiratory: Yes: Chest Non-Tender, Lungs Clear, Normal Breath Sounds, No Respiratory Distress, No Accessory Muscle Use Neck: Yes: No masses,lesions,Nodules, Trachea in good position Breast: Yes: Breast Exam Deferred Cardiology: Yes: Regular Rhythm, Regular Rate Abdominal: Yes: Normal Bowel Sounds, Non Tender Genitourinary: Yes: Other (NO COMPLAINTS REPORTED) Back: Yes: Normal Inspection Musculoskeletal: Yes: full range of Motion, Gait Steady Extremities: Yes: Normal Capillary Refill, Normal Inspection, Normal Range of Motion, Non-Tender Neurological: Yes: Alert, Normal Mood/Affect, Normal Response Integumentary: Yes: Normal Color, Dry, Warm Lymphatic: Yes: Within Normal Limits - Diagnostic (1) syncope alcohol related Current Visit: No Status: Active (2) Alcohol dependence with uncomplicated withdrawal Current Visit: Yes Status: Chronic (3) Nicotine dependence Current Visit: Yes Status: Chronic Qualifiers: Nicotine product type: cigarettes Substance use status: in withdrawal Qualified Code(s): F17.213 - Nicotine dependence, cigarettes, with withdrawal (4) Cocaine dependence, uncomplicated Current Visit: Yes Status: Chronic (5) Hypertension Current Visit: Yes Status: Chronic Qualifiers: Hypertension type: essential hypertension Qualified Code(s): I10 - Essential (primary) hypertension (6) Left knee pain Current Visit: Yes Status: Chronic Qualifiers: Chronicity: chronic Qualified Code(s): M25.562 - Pain in left knee; G89.29 - Other chronic pain (7) History of chest tube placement Current Visit: Yes Status: Resolved Cleared for Admission [facility] - Detox or Rehab [facility] Level of Care: Medically Managed Detox Regimen/Protocol: Librium [facility] Breath Alcohol Content Breath Alcohol Content: 0 Urine Drug Screen - Results Drug Screen Negative: No Urine Drug Screen Results: RJ-Cocaine
[2018-07-19] MEDS ORDERED: IBUPROFEN 400 MG TABLET (FP) PO PRN (12:47)
[2018-07-19] MEDS ORDERED: LOPERAMIDE HCL 2 MG CAPSULE PO PRN (12:47)
[2018-07-19] MEDS ORDERED: MENTHOL/PHENOL 1 EACH UD MM PRN (12:47)
[2018-07-19] MEDS ORDERED: P-EPHED 60MG/TRIPROLIDI 2.5MG TABLET PO PRN (12:47)
[2018-07-19] MEDS ORDERED: guaiFENesin/D-METHORPHAN HB 10 ML UNIT-DOSE CUPS PO PRN (12:47)
[2018-07-19] MEDS ORDERED: MAGNESIUM HYDROX 2400MG/30ML ORAL SUSPENSION 30 ML CUP PO PRN (12:47)
[2018-07-19] MEDS ORDERED: chlordiazePOXIDE HCL 25 MG CAPSULE PO PRN (12:47)
[2018-07-19] MEDS ORDERED: MAG HYDROX/AL HYDROX/SIMETH 30 ML UNIT-DOSE CUP PO PRN (12:47)
[2018-07-19] MEDS ORDERED: MAGNESIUM CITRATE 300 ML BOTTLE PO PRN (12:47)
[2018-07-19] MEDS: NIFEdipine E.R 60 MG TABLET (UD) PO SCH (15:01)
[2018-07-19] MEDS: chlordiazePOXIDE HCL 25 MG CAPSULE PO SCH ×2 (17:25→22:48)
[2018-07-19] MEDS ORDERED: MELATONIN 5 MG TABLETS PO PRN (22:00)
[2018-07-19] MEDS: THIAMINE HCL 100 MG TABLET (FP) PO SCH (22:48)
[2018-07-20] MEDS: chlordiazePOXIDE HCL 25 MG CAPSULE PO SCH ×4 (06:19→22:15)
[2018-07-20 09:40] LABS: HEMATOCRIT 37.2 % (35.4-49); HEMOGLOBIN 12.6 GM/dL (11.7-16.9); MCH 30.8 pg (25.7-33.7); MCHC 33.9 g/dl (32.0-35.9); MEAN CELL VOLUME 91.1 fl (80-96); MEAN PLT VOLUME 9.1 fl (7.5-11.1); PLATELET COUNT 256 K/MM3 (134-434); RBC 4.09 M/mm3 (4.00-5.60); RDW 15.5 % (11.9-15.9); WHITE BLOOD COUNT 4.3 K/mm3 (4.0-10.0)
[2018-07-20 10:05] LABS: ALBUMIN 3.7 g/dl (3.4-5.0); ALK PHOS 104 U/L (45-117); ANION GAP 10 MMOL/L (8-16); BILIRUBIN,TOTAL 0.4 mg/dL (0.2-1); BLOOD UREA NITROGEN 52 mg/dL (7-18); CALCIUM 8.5 mg/dL (8.5-10.1); CHLORIDE 107 mmol/L (98-107); CO2 25 mmol/L (21-32); CREATININE 3.4 mg/dL (0.55-1.3); GLUCOSE,RANDOM 103 mg/dL (74-106); POTASSIUM 3.9 mmol/L (3.5-5.1); SGOT/AST 23 U/L (15-37); SGPT/ALT 20 U/L (13-61); SODIUM 142 mmol/L (136-145); TOT PROT 7.1 g/dl (6.4-8.2)
--- NOTE | 2018-07-20 10:39 | PN ---
[facility] CIWA - CIWA Score Nausea/Vomitin-Mild Nausea/No Vomiting Muscle Tremors: 3 Anxiety: 3 Agitation: 3 Paroxysmal Sweats: 1-Minimal Palms Moist Orientation: 1-Uncertain about Date Tacttile Disturbances: 0-None Auditory Disturbances: 0-None Visual Disturbances: 0-None Headache: 2-Mild CIWA-Ar Total Score: 14 S Progress Note (SOAP) Subjective: tremor sweating restlessness low energy Objective: 07/20/18 10:38 Vital Signs Temperature 98.1 F 07/20/18 09:26 Pulse Rate 68 07/20/18 09:26 Respiratory Rate 20 07/20/18 09:26 Blood Pressure 111/59 L 07/20/18 09:26 O2 Sat by Pulse Oximetry (%) Laboratory Last Values WBC 4.3 K/mm3 (4.0-10.0) 07/20/18 07:00 RBC 4.09 M/mm3 (4.00-5.60) 07/20/18 07:00 Hgb 12.6 GM/dL (11.7-16.9) 07/20/18 07:00 Hct 37.2 % (35.4-49) 07/20/18 07:00 MCV 91.1 fl (80-96) 07/20/18 07:00 MCH 30.8 pg (25.7-33.7) 07/20/18 07:00 MCHC 33.9 g/dl (32.0-35.9) 07/20/18 07:00 RDW 15.5 % (11.9-15.9) 07/20/18 07:00 Plt Count 256 K/MM3 (134-434) 07/20/18 07:00 MPV 9.1 fl (7.5-11.1) 07/20/18 07:00 Sodium 142 mmol/L (136-145) 07/20/18 07:00 Potassium 3.9 mmol/L (3.5-5.1) 07/20/18 07:00 Chloride 107 mmol/L (98-107) 07/20/18 07:00 Carbon Dioxide 25 mmol/L (21-32) 07/20/18 07:00 Anion Gap 10 MMOL/L (8-16) 07/20/18 07:00 BUN 52 mg/dL (7-18) H 07/20/18 07:00 Creatinine 3.4 mg/dL (0.55-1.3) H 07/20/18 07:00 Creat Clearance w eGFR 18.57 (>60) 07/20/18 07:00 Random Glucose 103 mg/dL (74-106) 07/20/18 07:00 Calcium 8.5 mg/dL (8.5-10.1) 07/20/18 07:00 Total Bilirubin 0.4 mg/dL (0.2-1) 07/20/18 07:00 AST 23 U/L (15-37) 07/20/18 07:00 ALT 20 U/L (13-61) 07/20/18 07:00 Alkaline Phosphatase 104 U/L (45-117) 07/20/18 07:00 Total Protein 7.1 g/dl (6.4-8.2) 07/20/18 07:00 Albumin 3.7 g/dl (3.4-5.0) 07/20/18 07:00 lab noted renal insufficient Assessment: 07/20/18 10:39 withdrawal sx renal failure Plan: continue detox
[2018-07-20] MEDS: NIFEdipine E.R 60 MG TABLET (UD) PO SCH ×2 (10:46→11:23)
[2018-07-20] MEDS: PRENATAL VITAMINS W/ FOLIC ACID TABLET (FP) PO SCH (10:46)
--- NOTE | 2018-07-20 11:18 | CONSULT ---
[facility] Psychiatric Consult - Data Date of interview: 07/20/18 Admission source: [facility] Identifying data: This is a 62 myears old male, single father of two, homeless, with no financial suppot, history of Chronic Alcoholism, is here reporting withdrawal symptoms and seeking detox. As per xhrt patient with history of Schizophrenia, history of Alcohol and Cocaine dependence, history of psychiatric hospitalizations. 62 Y.O. MAN WITH AN EXTENSIVE HISTORY OF ALCOHOL AND COCAINE DEPENDENCE IS HERE SEEKING DETOX SERVICES. PT. HAS HAD MULTIPLE ADMISSIONS HERE FOR DETOX WITH THE LAST BEING ON 05/04/18-05/08/18. DOES NOT HAVE A SIGNIFICANT PERIOD OF SOBRIETY. Exam Limitations: No Limitations Substance Abuse History: Smoking history: Former smoker. Have you smoked in the past 12 months: Yes. Aproximately how many cigarettes per day: 2. If you are a former smoker, when did you quit?: 02/2018. Cigars Per Day: 0. Hx Chewing Tobacco Use: No. Initiated information on smoking cessation: Yes. ' Breaking Loose' booklet given: 07/19/18. - Substance & Tx. History. Hx Alcohol Use: Yes. Hx Substance Use: Yes. Substance Use Type: Alcohol, Cocaine. Hx Substance Use Treatment: Yes (Detox: 04/2018). - Substances Abused. Alcohol. Route: Oral. Frequency: Daily. Amount used: 10 DRINKS VODKA , CHARLENE. Age of first use: 21. Date of Last Use: 07/18/18. Cocaine. Route: Smoking. Frequency: 1-2 times per week. Amount used: $50- 100. Age of first use: 28. Date of Last Use: 07/18/18 Medical History: HTN, L. Knee Injury history, Syncope history, Lipoma history, Renal fgailure history Psychiatric History: As per chart patioent suffers Paranoid Schizophrenia with history of psychiatric ad,mission on more then 10 years ago. Patient denies suicidal, homiicdal history, reports currently stable on Seroquel 50mg po bid Physical/Sexual Abuse/Trauma History: Denies Additional Comment: Seroquel 50mg po bid Mental Status Exam - Mental Status Exam Alert and Oriented to: Person Cognitive Function: Fair Patient Appearance: Unkempt Mood: Suspicious Affect: Flat Patient Behavior: Cooperative Speech Pattern: Delayed Voice Loudness: Mildly Soft/Quiet Thought Process: Circumstantial Thought Disorder: Being Controlled Hallucinations: Denies Suicidal Ideation: Denies Insight/Judgement: Fair Sleep: Difficulty falling asleep Appetite: Fair Muscle strength/Tone: Mild Hypotonicity Gait/Station: Deferred Additional Comments: Seroquel 50mg po bid Psychiatric Findings - Problem List ([place] 1, 2,3) (1) Alcohol dependence with uncomplicated withdrawal Current Visit: Yes Status: Chronic (2) Cocaine dependence, uncomplicated Current Visit: Yes Status: Chronic (3) Hypertension Current Visit: Yes Status: Chronic Qualifiers: Hypertension type: essential hypertension Qualified Code(s): I10 - Essential (primary) hypertension (4) Left knee pain Current Visit: Yes Status: Chronic Qualifiers: Chronicity: chronic Qualified Code(s): M25.562 - Pain in left knee; G89.29 - Other chronic pain (5) Nicotine dependence Current Visit: Yes Status: Chronic Qualifiers: Nicotine product type: cigarettes Substance use status: in withdrawal Qualified Code(s): F17.213 - Nicotine dependence, cigarettes, with withdrawal (6) syncope alcohol related Current Visit: No Status: Active (7) Lipoma Current Visit: No Status: Acute Qualifiers: Lipoma location: unspecified Qualified Code(s): D17.9 - Benign lipomatous neoplasm, unspecified (8) Residual schizophrenia Current Visit: No Status: Acute (9) Cocaine dependence Current Visit: No Status: Chronic (10) Opiate abuse, episodic Current Visit: No Status: Chronic (11) Paranoid schizophrenia Current Visit: No Status: Chronic (12) Renal failure Current Visit: No Status: Chronic (13) Status post skin graft Current Visit: No Status: Resolved - Initial Treatment Plan Initial Treatment Plan: Seroquel 50mg po bid
[2018-07-20] MEDS: QUEtiapine FUMARATE 50 MG TABLET PO SCH ×2 (14:48→22:15)
[2018-07-20] MEDS: ACETAMINOPHEN 325 MG TABLET (FP) PO PRN (17:09)
[2018-07-20] MEDS: THIAMINE HCL 100 MG TABLET (FP) PO SCH (22:15)
[2018-07-21] MEDS: chlordiazePOXIDE HCL 25 MG CAPSULE PO SCH ×2 (06:13→10:06)
[2018-07-21 08:30] LABS: URINE APPEARANCE CLEAR; URINE BILIRUBIN NEGATIVE (<2.0 mg/dL); URINE COLOR STRAW; URINE GLUCOSE (UA) 2+ (NEGATIVE); URINE KETONE NEGATIVE (NEGATIVE); URINE LEUK ESTERASE NEGATIVE (NEGATIVE); URINE NITRITE NEGATIVE (NEGATIVE); URINE PROTEIN NEGATIVE (NEGATIVE); URINE UROBILINOGEN NEGATIVE mg/dL (0.2-1.0)
[2018-07-21] MEDS: NIFEdipine E.R 60 MG TABLET (UD) PO SCH (10:06)
[2018-07-21] MEDS: QUEtiapine FUMARATE 50 MG TABLET PO SCH ×2 (10:06→22:30)
[2018-07-21] MEDS: PRENATAL VITAMINS W/ FOLIC ACID TABLET (FP) PO SCH (10:06)
--- NOTE | 2018-07-21 11:18 | PN ---
S CIWA - CIWA Score Nausea/Vomitin-Mild Nausea/No Vomiting Muscle Tremors: 3 Anxiety: 2 Agitation: 1-Slight > Activity Paroxysmal Sweats: 1-Minimal Palms Moist Orientation: 0-Oriented Tacttile Disturbances: 0-None Auditory Disturbances: 0-None Visual Disturbances: 0-None Headache: 2-Mild CIWA-Ar Total Score: 10 S Progress Note (SOAP) Subjective: tremor sweating anxiety Objective: 07/21/18 11:19 Vital Signs Temperature 100.3 F H 07/21/18 09:09 Pulse Rate 87 07/21/18 09:09 Respiratory Rate 18 07/21/18 09:09 Blood Pressure 164/92 07/21/18 09:09 O2 Sat by Pulse Oximetry (%) Laboratory Last Values WBC 4.3 K/mm3 (4.0-10.0) 07/20/18 07:00 RBC 4.09 M/mm3 (4.00-5.60) 07/20/18 07:00 Hgb 12.6 GM/dL (11.7-16.9) 07/20/18 07:00 Hct 37.2 % (35.4-49) 07/20/18 07:00 MCV 91.1 fl (80-96) 07/20/18 07:00 MCH 30.8 pg (25.7-33.7) 07/20/18 07:00 MCHC 33.9 g/dl (32.0-35.9) 07/20/18 07:00 RDW 15.5 % (11.9-15.9) 07/20/18 07:00 Plt Count 256 K/MM3 (134-434) 07/20/18 07:00 MPV 9.1 fl (7.5-11.1) 07/20/18 07:00 Sodium 142 mmol/L (136-145) 07/20/18 07:00 Potassium 3.9 mmol/L (3.5-5.1) 07/20/18 07:00 Chloride 107 mmol/L (98-107) 07/20/18 07:00 Carbon Dioxide 25 mmol/L (21-32) 07/20/18 07:00 Anion Gap 10 MMOL/L (8-16) 07/20/18 07:00 BUN 52 mg/dL (7-18) H 07/20/18 07:00 Creatinine 3.4 mg/dL (0.55-1.3) H 07/20/18 07:00 Creat Clearance w eGFR 18.57 (>60) 07/20/18 07:00 Random Glucose 103 mg/dL (74-106) 07/20/18 07:00 Calcium 8.5 mg/dL (8.5-10.1) 07/20/18 07:00 Total Bilirubin 0.4 mg/dL (0.2-1) 07/20/18 07:00 AST 23 U/L (15-37) 07/20/18 07:00 ALT 20 U/L (13-61) 07/20/18 07:00 Alkaline Phosphatase 104 U/L (45-117) 07/20/18 07:00 Total Protein 7.1 g/dl (6.4-8.2) 07/20/18 07:00 Albumin 3.7 g/dl (3.4-5.0) 07/20/18 07:00 Urine Color Straw 07/20/18 22:39 Urine Appearance Clear 07/20/18 22:39 Urine pH 6.0 (5.0-8.0) 07/20/18 22:39 Ur Specific [place] 1.012 (1.010-1.035) 07/20/18 22:39 Urine Protein Negative (NEGATIVE) 07/20/18 22:39 Urine Glucose (UA) 2+ (NEGATIVE) H 07/20/18 22:39 Urine Ketones Negative (NEGATIVE) 07/20/18 22:39 Urine Blood Negative (NEGATIVE) 07/20/18 22:39 Urine Nitrite Negative (NEGATIVE) 07/20/18 22:39 Urine Bilirubin Negative (<2.0 mg/dL) 07/20/18 22:39 Urine Urobilinogen Negative mg/dL (0.2-1.0) 07/20/18 22:39 Ur Leukocyte Esterase Negative (NEGATIVE) 07/20/18 22:39 RPR Titer Nonreactive (NONREACTIVE) 07/20/18 07:00 lab noted kidney failure discuss negative consequences of alcohol related renal disease and the important of follow up with nephrology patient is not engaged avoid conversation with the typewriter repairer 07/21/18 11:25 Assessment: 07/21/18 11:27 withdrawal sx Plan: continue detox
[2018-07-21] MEDS ORDERED: LISINOPRIL 10 MG TABLET (FP) PO SCH (11:45)
[2018-07-21] MEDS ORDERED: LISINOPRIL 10 MG TABLET (FP) PO ONE (15:35)
[2018-07-21] MEDS: ACETAMINOPHEN 325 MG TABLET (FP) PO PRN (15:57)
[2018-07-21] MEDS: chlordiazePOXIDE 5 MG CAPSULE PO SCH ×2 (17:36→22:28)
[2018-07-21] MEDS: THIAMINE HCL 100 MG TABLET (FP) PO SCH (22:28)
[2018-07-22] MEDS: chlordiazePOXIDE 5 MG CAPSULE PO SCH ×2 (05:54→12:00)
--- NOTE | 2018-07-22 09:38 | PN ---
[facility] Progress Note (SOAP) Subjective: feeling better less tremor mild sweating bp reduction from 180 of systolic to 140 today patient is doing well with nifedipine and lisinopril Objective: 07/22/18 09:33 Vital Signs Temperature 101.7 F H 07/22/18 09:26 Pulse Rate 43 L 07/22/18 09:26 Respiratory Rate 17 07/22/18 09:26 Blood Pressure 141/82 07/22/18 09:26 O2 Sat by Pulse Oximetry (%) Laboratory Last Values WBC 4.3 K/mm3 (4.0-10.0) 07/20/18 07:00 RBC 4.09 M/mm3 (4.00-5.60) 07/20/18 07:00 Hgb 12.6 GM/dL (11.7-16.9) 07/20/18 07:00 Hct 37.2 % (35.4-49) 07/20/18 07:00 MCV 91.1 fl (80-96) 07/20/18 07:00 MCH 30.8 pg (25.7-33.7) 07/20/18 07:00 MCHC 33.9 g/dl (32.0-35.9) 07/20/18 07:00 RDW 15.5 % (11.9-15.9) 07/20/18 07:00 Plt Count 256 K/MM3 (134-434) 07/20/18 07:00 MPV 9.1 fl (7.5-11.1) 07/20/18 07:00 Sodium 142 mmol/L (136-145) 07/20/18 07:00 Potassium 3.9 mmol/L (3.5-5.1) 07/20/18 07:00 Chloride 107 mmol/L (98-107) 07/20/18 07:00 Carbon Dioxide 25 mmol/L (21-32) 07/20/18 07:00 Anion Gap 10 MMOL/L (8-16) 07/20/18 07:00 BUN 52 mg/dL (7-18) H 07/20/18 07:00 Creatinine 3.4 mg/dL (0.55-1.3) H 07/20/18 07:00 Creat Clearance w eGFR 18.57 (>60) 07/20/18 07:00 Random Glucose 103 mg/dL (74-106) 07/20/18 07:00 Calcium 8.5 mg/dL (8.5-10.1) 07/20/18 07:00 Total Bilirubin 0.4 mg/dL (0.2-1) 07/20/18 07:00 AST 23 U/L (15-37) 07/20/18 07:00 ALT 20 U/L (13-61) 07/20/18 07:00 Alkaline Phosphatase 104 U/L (45-117) 07/20/18 07:00 Total Protein 7.1 g/dl (6.4-8.2) 07/20/18 07:00 Albumin 3.7 g/dl (3.4-5.0) 07/20/18 07:00 Urine Color Straw 07/20/18 22:39 Urine Appearance Clear 07/20/18 22:39 Urine pH 6.0 (5.0-8.0) 07/20/18 22:39 Ur Specific [place] 1.012 (1.010-1.035) 07/20/18 22:39 Urine Protein Negative (NEGATIVE) 07/20/18 22:39 Urine Glucose (UA) 2+ (NEGATIVE) H 07/20/18 22:39 Urine Ketones Negative (NEGATIVE) 07/20/18 22:39 Urine Blood Negative (NEGATIVE) 07/20/18 22:39 Urine Nitrite Negative (NEGATIVE) 07/20/18 22:39 Urine Bilirubin Negative (<2.0 mg/dL) 07/20/18 22:39 Urine Urobilinogen Negative mg/dL (0.2-1.0) 07/20/18 22:39 Ur Leukocyte Esterase Negative (NEGATIVE) 07/20/18 22:39 RPR Titer Nonreactive (NONREACTIVE) 07/20/18 07:00 lab noted patient agrees to bring lab result to nephrology follow up Assessment: 07/22/18 09:34 withdrawal sx renal insufficiency Plan: continue detox
[2018-07-22] MEDS: LISINOPRIL 20 MG TABLET (FP) PO SCH (10:20)
[2018-07-22] MEDS: ACETAMINOPHEN 325 MG TABLET (FP) PO PRN ×3 (10:20→22:24)
[2018-07-22] MEDS: NIFEdipine E.R 60 MG TABLET (UD) PO SCH (10:20)
[2018-07-22] MEDS: PRENATAL VITAMINS W/ FOLIC ACID TABLET (FP) PO SCH (10:20)
[2018-07-22] MEDS: QUEtiapine FUMARATE 50 MG TABLET PO SCH ×2 (10:20→22:26)
[2018-07-22] MEDS: chlordiazePOXIDE HCL 10 MG CAPSULE PO SCH ×2 (17:30→22:24)
[2018-07-22] MEDS: THIAMINE HCL 100 MG TABLET (FP) PO SCH (22:24)
[2018-07-23] MEDS: chlordiazePOXIDE HCL 10 MG CAPSULE PO SCH (06:12)
[2018-07-23 09:18] VITALS: BP 142/94; PULSE 90; TEMP 98.5
--- NOTE | 2018-07-23 10:12 | DS ---
[facility] Detox Discharge Summary Admission Date: 07/19/18 Discharge Date: 07/23/18 - History Present History: Alcohol Dependence Additional Comments: 62 years old male admitted on 07/19/18 for alcohol withdrawal stabilization completed detox regimen return to primary care provider at the [facility] patient is alert temperature within normal range speech clear coherent - Physical Exam Results Vital Signs: Vital Signs Temperature 98.5 F 07/23/18 09:17 Pulse Rate 90 07/23/18 09:17 Respiratory Rate 20 07/23/18 09:17 Blood Pressure 142/94 07/23/18 09:17 O2 Sat by Pulse Oximetry (%) Pertinent Admission Physical Exam Findings: alcohol withdrawal sx Laboratory Last Values WBC 4.3 K/mm3 (4.0-10.0) 07/20/18 07:00 RBC 4.09 M/mm3 (4.00-5.60) 07/20/18 07:00 Hgb 12.6 GM/dL (11.7-16.9) 07/20/18 07:00 Hct 37.2 % (35.4-49) 07/20/18 07:00 MCV 91.1 fl (80-96) 07/20/18 07:00 MCH 30.8 pg (25.7-33.7) 07/20/18 07:00 MCHC 33.9 g/dl (32.0-35.9) 07/20/18 07:00 RDW 15.5 % (11.9-15.9) 07/20/18 07:00 Plt Count 256 K/MM3 (134-434) 07/20/18 07:00 MPV 9.1 fl (7.5-11.1) 07/20/18 07:00 Sodium 142 mmol/L (136-145) 07/20/18 07:00 Potassium 3.9 mmol/L (3.5-5.1) 07/20/18 07:00 Chloride 107 mmol/L (98-107) 07/20/18 07:00 Carbon Dioxide 25 mmol/L (21-32) 07/20/18 07:00 Anion Gap 10 MMOL/L (8-16) 07/20/18 07:00 BUN 52 mg/dL (7-18) H 07/20/18 07:00 Creatinine 3.4 mg/dL (0.55-1.3) H 07/20/18 07:00 Creat Clearance w eGFR 18.57 (>60) 07/20/18 07:00 Random Glucose 103 mg/dL (74-106) 07/20/18 07:00 Hemoglobin A1c % 5.9 % (4.2-6.3) 07/22/18 07:00 Calcium 8.5 mg/dL (8.5-10.1) 07/20/18 07:00 Total Bilirubin 0.4 mg/dL (0.2-1) 07/20/18 07:00 AST 23 U/L (15-37) 07/20/18 07:00 ALT 20 U/L (13-61) 07/20/18 07:00 Alkaline Phosphatase 104 U/L (45-117) 07/20/18 07:00 Total Protein 7.1 g/dl (6.4-8.2) 07/20/18 07:00 Albumin 3.7 g/dl (3.4-5.0) 07/20/18 07:00 Urine Color Straw 07/20/18 22:39 Urine Appearance Clear 07/20/18 22:39 Urine pH 6.0 (5.0-8.0) 07/20/18 22:39 Ur Specific [place] 1.012 (1.010-1.035) 07/20/18 22:39 Urine Protein Negative (NEGATIVE) 07/20/18 22:39 Urine Glucose (UA) 2+ (NEGATIVE) H 07/20/18 22:39 Urine Ketones Negative (NEGATIVE) 07/20/18 22:39 Urine Blood Negative (NEGATIVE) 07/20/18 22:39 Urine Nitrite Negative (NEGATIVE) 07/20/18 22:39 Urine Bilirubin Negative (<2.0 mg/dL) 07/20/18 22:39 Urine Urobilinogen Negative mg/dL (0.2-1.0) 07/20/18 22:39 Ur Leukocyte Esterase Negative (NEGATIVE) 07/20/18 22:39 RPR Titer Nonreactive (NONREACTIVE) 07/20/18 07:00 lab noted patient acknowledged bring in update medication list with updated lab report to primary care provider - Treatment Hospital Course: Detox Protocol Followed, Detoxed Safely, Responded well, Discharged Condition Good, Rehab Referral Accepted Patient has Accepted a Rehab Referral to: [facility] - Medication Discharge Medications: Ambulatory Orders Quetiapine Fumarate [Seroquel -] 50 mg PO BID #60 tablet 07/20/18 Lisinopril [Prinivil] 20 mg PO DAILY #30 tablet 07/22/18 Nifedipine [Adalat cc] 120 mg PO DAILY #30 tablet.er 07/22/18 - Diagnosis (1) Cocaine dependence, uncomplicated Current Visit: Yes Status: Chronic (2) Hypertension Current Visit: Yes Status: Chronic Qualifiers: Hypertension type: essential hypertension Qualified Code(s): I10 - Essential (primary) hypertension (3) Nicotine dependence Current Visit: Yes Status: Acute Qualifiers: Nicotine product type: cigarettes Substance use status: in withdrawal Qualified Code(s): F17.213 - Nicotine dependence, cigarettes, with withdrawal (4) Chronic renal failure Current Visit: Yes Status: Chronic Qualifiers: Chronic kidney disease stage: unspecified stage Qualified Code(s): N18.9 - Chronic kidney disease, unspecified - AMA Did Patient Leave Against Medical Advice: No
[2018-07-23] MEDS: PRENATAL VITAMINS W/ FOLIC ACID TABLET (FP) PO SCH (10:25)
[2018-07-23] MEDS: NIFEdipine E.R 60 MG TABLET (UD) PO SCH (10:25)
[2018-07-23] MEDS: QUEtiapine FUMARATE 50 MG TABLET PO SCH (10:25)
[2018-07-23] MEDS: LISINOPRIL 20 MG TABLET (FP) PO SCH (10:25)
== END 2018-07-23 08:40 | disposition home or self-care (01) | DRG 521 ==
LOC: YASAS 12:07 → Y3N 12:52
PROVIDERS: ADMIT Neuromusculoskeletal Medicine & OMM; ATTEND Neuromusculoskeletal Medicine & OMM
PROC: HZ2ZZZZ Detoxification Services for Substance Abuse Treatment (ICD-10-PCS; principal; 2018-07-19)
DX: F10.230 Alcohol dependence with withdrawal, uncomplicated (principal); F20.5 Residual schizophrenia; F20.0 Paranoid schizophrenia; N18.9 Chronic kidney disease, unspecified; F14.20 Cocaine dependence, uncomplicated; F11.10 Opioid abuse, uncomplicated; F17.213 Nicotine dependence, cigarettes, with withdrawal; I12.9 Hypertensive chronic kidney disease with stage 1 through stage 4 chronic kidney disease, or unspecified chronic kidney disease; M25.562 Pain in left knee; G89.29 Other chronic pain; D17.9 Benign lipomatous neoplasm, unspecified
CPT/HCPCS: 36415; 80053; 81003; 83036; 85027; 86593

== ENCOUNTER 2018-09-06 08:48 | Inpatient (IN) | payer OTHER ==
[2018-09-06 09:46] VITALS: BMI 24.8
--- NOTE | 2018-09-06 11:53 | HP ---
CIWA Score Nausea/Vomitin Muscle Tremors: 2 Anxiety: 2 Agitation: 2 Paroxysmal Sweats: 1-Minimal Palms Moist Orientation: 0-Oriented Tacttile Disturbances: 1-Very Mild Itch/Numbness Auditory Disturbances: 1-Very Mild Visual Disturbances: 0-None Headache: 2-Mild CIWA-Ar Total Score: 13 - Admission Criteria OASAS Guidelines: Admission for Medically Managed Detox: Requires at least one of the followin. CIWA greater than 12 2. Seizures within the past 24 hours 3. Delirium tremens within the past 24 hours 4. Hallucinations within the past 24 hours 5. Acute intervention needed for co occurring medical disorder 6. Acute intervention needed for co occurring psychiatric disorder 7. Severe withdrawal that cannot be handled at a lower level of care (continued vomiting, continued diarrhea, abnormal vital signs) requiring intravenous medication and/or fluids 8. Admission ROS S - HPI Chief Complaint: i need help to stop drinking alcohol and cocaine Allergies/Adverse Reactions: Allergies Allergy/AdvReac Type Severity Reaction Status Date / Time No Known Allergies Allergy Verified 09/06/18 11:25 History of Present Illness: this 62 years old male with alcohol and cocaine dependence,withdrawal symptom, seeking detox, multiple admissions in detox,[facility] but keep relapsing history of hypertension on med syncope nicotine dependence 2 cigarette schizophrenia on med - Ebola screening Have you traveled outside of the country in the last 21 days: No (N) Have you had contact with anyone from an Ebola affected area: No Have you been sick,other than usual withdrawal symptoms: No Do you have a fever: No - Review of Systems Constitutional: Loss of Appetite, Malaise, Night Sweats, Changes in sleep, Weakness EENT: reports: Nose Congestion Respiratory: reports: No Symptoms reported Cardiac: reports: No Symptoms Reported GI: reports: Nausea, Poor Appetite, Abdominal cramping : reports: No Symptoms Reported Musculoskeletal: reports: Back Pain, Muscle Pain Integumentary: reports: Dryness Neuro: reports: Headache, Tremors Endocrine: reports: No Symptoms Reported Hematology: reports: No Symptoms Reported Psychiatric: reports: No Sypmtoms Reported, Judgement Intact, Mood/Affect Appropiate, Orientated x3, other (schizophrenia) Patient History - Patient Medical History Hx Anemia: No Hx Asthma: No Hx Chronic Obstructive Pulmonary Disease (COPD): No Hx Cancer: No Hx Cardiac Disorders: No Hx Congestive Heart Failure: No Hx Hypertension: Yes (Takes nifedipine) Hx Hypercholesterolemia: No Hx Pacemaker: No HX Cerebrovascular Accident: No Hx Seizures: No Hx Dementia: No Hx Diabetes: No Hx Gastrointestinal Disorders: No Hx Liver Disease: No Hx Genitourinary Disorders: No Hx Sexually Transmitted Disorders: No Hx Renal Disease (ESRD): No Hx Thyroid Disease: No Hx Human Immunodeficiency Virus (HIV): No (NEGATIVE HX last 2012) Hx Hepatitis C: No Hx Depression: No Hx Suicide Attempt: No Hx Bipolar Disorder: No Hx Schizophrenia: Yes (non compliance with med) Other Medical History: no suicidal,no homicidal - Patient Surgical History Past Surgical History: Yes Hx Neurologic Surgery: No Hx Cataract Extraction: No Hx Cardiac Surgery: No Hx Lung Surgery: Yes (R chest tube 2013) Hx Breast Surgery: No Hx Breast Biopsy: No Hx Abdominal Surgery: No Hx Appendectomy: No Hx Cholecystectomy: No Hx Genitourinary Surgery: No Hx Section: No Hx Orthopedic Surgery: Yes Hx Hysterectomy: No Other Surgical History: right lateral keloid removed unable to remember when Anesthesia Reaction: No - PPD History Previous Implant?: Yes Documented Results: Negative w/proof Implanted On Prior [facility] Admission?: Yes Date: 03/03/18 Results: NEGATIVE PPD to be Administered?: No - Smoking Cessation Smoking history: Current every day smoker Have you smoked in the past 12 months: Yes Aproximately how many cigarettes per day: 2 If you are a former smoker, when did you quit?: 02/2018 Cigars Per Day: 0 Hx Chewing Tobacco Use: No Initiated information on smoking cessation: Yes 'Breaking Loose' booklet given: 09/06/18 - Substance & Tx. History Hx Alcohol Use: Yes Hx Substance Use: Yes Substance Use Type: Alcohol, Cocaine Hx Substance Use [facility] - Substances Abused Alcohol Route: Oral Frequency: Daily Amount used: 6 CANS OF BEER (24 OUNCES) Age of first use: 23 Date of Last Use: 09/04/18 Cocaine Route: Smoking Frequency: Daily Amount used: $50 Age of first use: 28 Date of Last Use: 09/06/18 Family Disease History - Family Disease History Family Disease History: Heart Disease: Father ([place] ), Mother (HTN), Brother (HTN,alcoholic,) Admission Physical Exam [facility] - Vital Signs Vital Signs: Vital Signs - 24 hr 09/06/18 09:43 Temperature 97.1 F L Pulse Rate 64 Respiratory 18 Rate Blood Pressure 134/68 - Physical General Appearance: Yes: Moderate Distress, Tremorous, Irritable, Sweating, Anxious HEENTM: Yes: Normal ENT Inspection, NISSA, Pharynx Normal Respiratory: Yes: Lungs Clear, Normal Breath Sounds, No Respiratory Distress, Other (s/p chest tube post fx of right rib) Neck: Yes: Within Normal Limits, Supple, Trachea in good position Breast: Yes: Within Normal Limits Cardiology: Yes: Within Normal Limits, Regular Rhythm, Regular Rate, S1, S2 Abdominal: Yes: Within Normal Limits, Normal Bowel Sounds, Non Tender, Flat, Soft Genitourinary: Yes: Within Normal Limits Back: Yes: Muscle Spasm Musculoskeletal: Yes: full range of Motion, Back pain, Muscle Pain Extremities: Yes: Normal Range of Motion, Tremors Neurological: Yes: physical medicine specialist II-XII NML intact, Alert, Motor Strength 5/5 Integumentary: Yes: Dry Lymphatic: Yes: Within Normal Limits - Diagnostic (1) Alcohol dependence with uncomplicated withdrawal Current Visit: No Status: Chronic (2) Insomnia Current Visit: No Status: Acute Qualifiers: Insomnia type: unspecified Qualified Code(s): G47.00 - Insomnia, unspecified (3) Nicotine dependence Current Visit: No Status: Acute Qualifiers: Nicotine product type: cigarettes Substance use status: in withdrawal Qualified Code(s): F17.213 - Nicotine dependence, cigarettes, with withdrawal (4) Hypertension Current Visit: No Status: Chronic Qualifiers: Hypertension type: essential hypertension Qualified Code(s): I10 - Essential (primary) hypertension (5) History of chest tube placement Current Visit: No Status: Resolved (6) Schizophrenia Current Visit: Yes Status: Acute Cleared for Admission S - Detox or Rehab S Level of Care: Medically Managed Detox Regimen/Protocol: Librium S Breath Alcohol Content Breath Alcohol Content: 0 Urine Drug Screen - Results Drug Screen Negative: No Urine Drug Screen Results: RJ-Cocaine Inpatient Rehab Admission - Rehab Decision to Admit Inpatient rehab admission?: No
[2018-09-06] MEDS ORDERED: MELATONIN 5 MG TABLETS PO PRN (12:05)
[2018-09-06] MEDS ORDERED: IBUPROFEN 400 MG TABLET (FP) PO PRN (12:05)
[2018-09-06] MEDS ORDERED: MENTHOL/PHENOL 1 EACH UD MM PRN (12:05)
[2018-09-06] MEDS ORDERED: METHOCARBAMOL 500 MG TABLET PO PRN (12:05)
[2018-09-06] MEDS ORDERED: chlordiazePOXIDE HCL 25 MG CAPSULE PO PRN (12:05)
[2018-09-06] MEDS ORDERED: hydrOXYzine PAMOATE 25 MG CAPSULE (FP) PO PRN (12:05)
[2018-09-06] MEDS ORDERED: BISMUTH SUBSALICYLATE 524 MG/30 ML UD PO PRN (12:05)
[2018-09-06] MEDS ORDERED: ACETAMINOPHEN 325 MG TABLET (FP) PO PRN ×2 (12:05)
[2018-09-06] MEDS ORDERED: MAGNESIUM HYDROX 2400MG/30ML ORAL SUSPENSION 30 ML CUP PO PRN (12:05)
[2018-09-06] MEDS ORDERED: MAGNESIUM CITRATE 300 ML BOTTLE PO PRN (12:05)
[2018-09-06] MEDS ORDERED: MAG HYDROX/AL HYDROX/SIMETH 30 ML UNIT-DOSE CUP PO PRN (12:05)
[2018-09-06] MEDS: chlordiazePOXIDE HCL 25 MG CAPSULE PO SCH ×2 (17:12→23:02)
[2018-09-06] MEDS: QUEtiapine FUMARATE 50 MG TABLET PO SCH (23:02)
[2018-09-06] MEDS: THIAMINE HCL 100 MG TABLET (FP) PO SCH (23:04)
[2018-09-07] MEDS: chlordiazePOXIDE HCL 25 MG CAPSULE PO SCH ×4 (05:15→22:40)
--- NOTE | 2018-09-07 09:28 | PN ---
S CIWA - CIWA Score Nausea/Vomitin-No Nausea/No Vomiting Muscle Tremors: 2 Anxiety: 2 Agitation: 2 Paroxysmal Sweats: 1-Minimal Palms Moist Orientation: 2-Disoriented Date<2 days Tacttile Disturbances: 0-None Auditory Disturbances: 0-None Visual Disturbances: 0-None Headache: 1-Very Mild CIWA-Ar Total Score: 10 BHS Progress Note (SOAP) Subjective: headaches, tremor sweating, patient wants his medication refilled for 30 days health teaching on community health services such as mini clinic, urgent care walk in facility Objective: 09/07/18 09:28 Vital Signs Temperature 97.3 F L 09/07/18 09:12 Pulse Rate 78 09/07/18 09:12 Respiratory Rate 18 09/07/18 09:12 Blood Pressure 125/83 09/07/18 09:12 O2 Sat by Pulse Oximetry (%) lab pending Assessment: 09/07/18 09:29 alcohol withdrawal sx hypertension Plan: continue detox
[2018-09-07 10:00] LABS: HEMATOCRIT 35.6 % (35.4-49); HEMOGLOBIN 12.4 GM/dL (11.7-16.9); MCH 31.6 pg (25.7-33.7); MCHC 34.7 g/dl (32.0-35.9); MEAN PLT VOLUME 8.7 fl (7.5-11.1); PLATELET COUNT 208 K/MM3 (134-434); RBC 3.91 M/mm3 (4.00-5.60); RDW 15.4 % (11.9-15.9); WHITE BLOOD COUNT 4.3 K/mm3 (4.0-10.0)
[2018-09-07 10:19] LABS: ALBUMIN 3.4 g/dl (3.4-5.0); ALK PHOS 103 U/L (45-117); ANION GAP 6 MMOL/L (8-16); BILIRUBIN,TOTAL 0.1 mg/dL (0.2-1); BLOOD UREA NITROGEN 39 mg/dL (7-18); CALCIUM 8.3 mg/dL (8.5-10.1); CHLORIDE 106 mmol/L (98-107); CO2 30 mmol/L (21-32); CREATININE 2.1 mg/dL (0.55-1.3); GLUCOSE,RANDOM 87 mg/dL (74-106); POTASSIUM 3.6 mmol/L (3.5-5.1); SGOT/AST 15 U/L (15-37); SGPT/ALT 24 U/L (13-61); SODIUM 142 mmol/L (136-145); TOT PROT 6.8 g/dl (6.4-8.2)
[2018-09-07] MEDS: PRENATAL VITAMINS W/ FOLIC ACID TABLET (FP) PO SCH (10:19)
[2018-09-07] MEDS: NIFEdipine E.R 60 MG TABLET (UD) PO SCH (10:19)
[2018-09-07] MEDS: QUEtiapine FUMARATE 50 MG TABLET PO SCH ×2 (10:20→22:40)
[2018-09-07] MEDS: THIAMINE HCL 100 MG TABLET (FP) PO SCH (22:40)
[2018-09-08] MEDS: chlordiazePOXIDE HCL 25 MG CAPSULE PO SCH ×2 (05:37→10:13)
[2018-09-08 09:18] VITALS: BP 156/97; PULSE 70; TEMP 96.3
[2018-09-08] MEDS: QUEtiapine FUMARATE 50 MG TABLET PO SCH (10:13)
[2018-09-08] MEDS: NIFEdipine E.R 60 MG TABLET (UD) PO SCH (10:13)
[2018-09-08] MEDS: PRENATAL VITAMINS W/ FOLIC ACID TABLET (FP) PO SCH (10:13)
--- NOTE | 2018-09-08 10:55 | DS ---
[facility] Detox Discharge Summary Admission Date: 09/06/18 Discharge Date: 09/08/18 - History Present History: Alcohol Dependence - Physical Exam Results Vital Signs: Vital Signs Temperature 96.3 F L 09/08/18 09:17 Pulse Rate 70 09/08/18 09:17 Respiratory Rate 20 09/08/18 09:17 Blood Pressure 156/97 09/08/18 09:17 O2 Sat by Pulse Oximetry (%) Pertinent Admission Physical Exam Findings: alcohol withdrawal sx Laboratory Last Values WBC 4.3 K/mm3 (4.0-10.0) 09/07/18 07:40 RBC 3.91 M/mm3 (4.00-5.60) L 09/07/18 07:40 Hgb 12.4 GM/dL (11.7-16.9) 09/07/18 07:40 Hct 35.6 % (35.4-49) 09/07/18 07:40 MCV 91.0 fl (80-96) 09/07/18 07:40 MCH 31.6 pg (25.7-33.7) 09/07/18 07:40 MCHC 34.7 g/dl (32.0-35.9) 09/07/18 07:40 RDW 15.4 % (11.9-15.9) 09/07/18 07:40 Plt Count 208 K/MM3 (134-434) 09/07/18 07:40 MPV 8.7 fl (7.5-11.1) 09/07/18 07:40 Sodium 142 mmol/L (136-145) 09/07/18 07:40 Potassium 3.6 mmol/L (3.5-5.1) 09/07/18 07:40 Chloride 106 mmol/L (98-107) 09/07/18 07:40 Carbon Dioxide 30 mmol/L (21-32) 09/07/18 07:40 Anion Gap 6 MMOL/L (8-16) L 09/07/18 07:40 BUN 39 mg/dL (7-18) H 09/07/18 07:40 Creatinine 2.1 mg/dL (0.55-1.3) H 09/07/18 07:40 Creat Clearance w eGFR 32.38 (>60) 09/07/18 07:40 Random Glucose 87 mg/dL (74-106) 09/07/18 07:40 Calcium 8.3 mg/dL (8.5-10.1) L 09/07/18 07:40 Total Bilirubin 0.1 mg/dL (0.2-1) L 09/07/18 07:40 AST 15 U/L (15-37) 09/07/18 07:40 ALT 24 U/L (13-61) 09/07/18 07:40 Alkaline Phosphatase 103 U/L (45-117) 09/07/18 07:40 Total Protein 6.8 g/dl (6.4-8.2) 09/07/18 07:40 Albumin 3.4 g/dl (3.4-5.0) 09/07/18 07:40 RPR Titer Nonreactive (NONREACTIVE) 09/07/18 07:40 lab noted - Treatment Hospital Course: Detox Protocol Followed, Detoxed Safely, Responded well, Discharged Condition Good, Rehab Referral Accepted Patient has Accepted [facility] Ref[facility] - Medication Discharge Medications: Ambulatory Orders Quetiapine Fumarate [Seroquel -] 50 mg PO BID #60 tablet 07/20/18 Nifedipine [Adalat cc] 120 mg PO DAILY #30 tablet.er 07/22/18 - Diagnosis (1) Alcohol dependence Status: Acute (2) Lipoma Status: Chronic Qualifiers: Lipoma location: unspecified Qualified Code(s): D17.9 - Benign lipomatous neoplasm, unspecified (3) Nicotine dependence Status: Acute Qualifiers: Nicotine product type: cigarettes Substance use status: in withdrawal Qualified Code(s): F17.213 - Nicotine dependence, cigarettes, with withdrawal (4) Hypertension Status: Chronic Qualifiers: Hypertension type: essential hypertension Qualified Code(s): I10 - Essential (primary) hypertension - AMA Did Patient Leave Against Medical Advice: No
[2018-09-08] MEDS ORDERED: chlordiazePOXIDE HCL 10 MG CAPSULE PO PRN (17:00)
[2018-09-08] MEDS ORDERED: chlordiazePOXIDE HCL 10 MG CAPSULE PO SCH (17:00)
[2018-09-09] MEDS ORDERED: chlordiazePOXIDE HCL 10 MG CAPSULE PO SCH (17:00)
== END 2018-09-08 11:09 | disposition home or self-care (01) | DRG 521 ==
LOC: YASAS 08:48 → Y3N 12:15
PROVIDERS: ADMIT Surgery; ATTEND Surgery
PROC: HZ2ZZZZ Detoxification Services for Substance Abuse Treatment (ICD-10-PCS; principal; 2018-09-06)
DX: F10.230 Alcohol dependence with withdrawal, uncomplicated (principal); F20.9 Schizophrenia, unspecified; F14.20 Cocaine dependence, uncomplicated; F17.213 Nicotine dependence, cigarettes, with withdrawal; I10 Essential (primary) hypertension; D17.9 Benign lipomatous neoplasm, unspecified
CPT/HCPCS: 36415; 80053; 85027; 86593

== ENCOUNTER 2019-01-14 09:09 | Inpatient (IN) | payer OTHER | END 2019-01-18 06:39 | disposition home or self-care (01) | LOC: YASAS 09:09 → Y3N 12:20 ==

== ENCOUNTER 2019-03-02 19:44 | Inpatient (IN) | payer OTHER ==
[2019-03-02 20:59] VITALS: BMI 27.2
--- NOTE | 2019-03-02 23:54 | HP ---
CIWA Score Nausea/Vomitin-Mild Nausea/No Vomiting Muscle Tremors: 3 Anxiety: 4-Mod. Anxious/Guarded Agitation: 4-Moderately Restless Paroxysmal Sweats: 2 Orientation: 0-Oriented Tacttile Disturbances: 0-None Auditory Disturbances: 0-None Visual Disturbances: 0-None Headache: 3-Moderate CIWA-Ar Total Score: 17 - Admission Criteria OASAS Guidelines: Admission for Medically Managed Detox: Requires at least one of the followin. CIWA greater than 12 2. Seizures within the past 24 hours 3. Delirium tremens within the past 24 hours 4. Hallucinations within the past 24 hours 5. Acute intervention needed for co occurring medical disorder 6. Acute intervention needed for co occurring psychiatric disorder 7. Severe withdrawal that cannot be handled at a lower level of care (continued vomiting, continued diarrhea, abnormal vital signs) requiring intravenous medication and/or fluids 8. Admission ROS [facility] Chief Complaint: Alcohol withdrawal symptoms Allergies/Adverse Reactions: Allergies Allergy/AdvReac Type Severity Reaction Status Date / Time No Known Allergies Allergy Verified 01/14/19 09:35 History of Present Illness: 63 years old male with a long history of alcohol dependence is seeking admission to detox. Patient has been to previous detox and reports insignificant period of sobriety. He has history of hypertension. He denies suicidal ideation at this time - Ebola screening Have you traveled outside of the country in the last 21 days: No (N) Have you had contact with anyone from an Ebola affected area: No Do you have a fever: No - Review of Systems Constitutional: Chills, Malaise, Changes in sleep EENT: reports: No Symptoms Reported Respiratory: reports: No Symptoms reported Cardiac: reports: No Symptoms Reported GI: reports: Diarrhea, Poor Appetite, Poor Fluid Intake, Vomiting, Abdominal cramping : reports: No Symptoms Reported Integumentary: reports: Dryness Neuro: reports: Tremors Endocrine: reports: No Symptoms Reported Hematology: reports: No Symptoms Reported Psychiatric: reports: No Sypmtoms Reported, Mood/Affect Appropiate Other Systems: Reviewed and Negative Patient History - Patient Medical History Hx Anemia: No Hx Asthma: No Hx Chronic Obstructive Pulmonary Disease (COPD): No Hx Cancer: No Hx Cardiac Disorders: No Hx Congestive Heart Failure: No Hx Hypertension: Yes (Nifedipine) Hx Hypercholesterolemia: No Hx Pacemaker: No HX Cerebrovascular Accident: No Hx Seizures: No Hx Dementia: No Hx Diabetes: No Hx Gastrointestinal Disorders: No Hx Liver Disease: No Hx Genitourinary Disorders: No Hx Sexually Transmitted Disorders: No Hx Renal Disease (ESRD): No Hx Thyroid Disease: No Hx Human Immunodeficiency Virus (HIV): No (NEGATIVE HX last 2012) Hx Hepatitis C: No Hx Depression: No Hx Suicide Attempt: No (Denies suic idal ideation at this time) Hx Bipolar Disorder: No Hx Schizophrenia: Yes - Patient Surgical History Past Surgical History: Yes Hx Neurologic Surgery: No Hx Cataract Extraction: No Hx Cardiac Surgery: No Hx Lung Surgery: Yes (R chest tube 2014 (Pneumothorax)) Hx Breast Surgery: No Hx Breast Biopsy: No Hx Abdominal Surgery: No Hx Appendectomy: No Hx Cholecystectomy: No Hx Genitourinary Surgery: No Hx Section: No Hx Orthopedic Surgery: Yes Hx Hysterectomy: No Other Surgical History: right lateral keloid removed unable to remember when Anesthesia Reaction: No - PPD History Previous Implant?: Yes Documented Results: Negative w/o proof Implanted On Prior [facility] Admission?: Yes Date: 03/03/18 Results: NEGATIVE PPD to be Administered?: Yes - Reproductive History Patient is a Female of Child Bearing Age (11 -55 yrs old): No (male) Patient : No - Smoking Cessation Smoking history: Current every day smoker Have you smoked in the past 12 months: Yes Aproximately how many cigarettes per day: 2 If you are a former smoker, when did you quit?: 02/2018 Cigars Per Day: 0 Hx Chewing Tobacco Use: No Initiated information on smoking cessation: Yes 'Breaking Loose' booklet given: 03/02/19 - Substance & Tx. History Hx Alcohol Use: Yes Substance Use Type: Alcohol, Cocaine Hx Substance Use Treatment: Yes ([facility]) - Substances abused Alcohol Substance route: Oral Frequency: Daily Amount used: 10 beers , 1-2pint vodka Age of first use: 27 Date of last use: 03/01/19 Crack Substance route: Smoking Frequency: Daily Amount used: $50 Age of first use: 27 Date of last use: 01/13/19 Cocaine Substance route: Smoking Frequency: Daily Amount used: $50 Age of first use: 28 Date of last use: 03/01/19 Family Disease History - Family Disease History Family Disease History: Heart Disease: Father ([place] ), Mother (HTN), Brother (HTN,alcoholic,) Admission Physical Exam [facility] - Vital Signs Vital Signs: Vital Signs - 24 hr 03/02/19 20:54 Temperature 98.5 F Pulse Rate 76 Respiratory 19 Rate Blood Pressure 183/106 H - Physical General Appearance: Yes: Moderate Distress HEENTM: Yes: Within Normal Limits Respiratory: Yes: Lungs Clear, Normal Breath Sounds, No Respiratory Distress Neck: Yes: Supple Breast: Yes: Breast Exam Deferred Cardiology: Yes: Regular Rhythm, Regular Rate Abdominal: Yes: Normal Bowel Sounds Genitourinary: Yes: Within Normal Limits Back: Yes: Normal Inspection Musculoskeletal: Yes: Within Normal Limits Extremities: Yes: Tremors Neurological: Yes: Normal Mood/Affect Integumentary: Yes: Warm Lymphatic: Yes: Within Normal Limits - Diagnostic (1) Alcohol dependence with uncomplicated withdrawal Current Visit: No Status: Acute (2) Hypertension Current Visit: No Status: Chronic Qualifiers: Hypertension type: essential hypertension Qualified Code(s): I10 - Essential (primary) hypertension Cleared for Admission [facility] - Detox or Rehab [facility] Level of Care: Medically Managed Detox Regimen/Protocol: Librium Breathalyzer - Breathalyzer Breathalyzer: 0 POC Urine test - Test device test lot number: not applicable Urine Drug Screen - Test Device Lot number: [id number] Expiration date: 11/20/20 - Control Is test valid?: Yes - Results Drug screen NEGATIVE: No Urine drug screen results: RJ-Cocaine Inpatient Rehab Admission - Rehab Decision to Admit Inpatient rehab admission?: No
[2019-03-03] MEDS ORDERED: ACETAMINOPHEN 325 MG TABLET (FP) PO PRN
[2019-03-03] MEDS ORDERED: MENTHOL/PHENOL 1 EACH UD MM PRN
[2019-03-03] MEDS ORDERED: MELATONIN 5 MG TABLETS PO PRN
[2019-03-03] MEDS ORDERED: BISMUTH SUBSALICYLATE 524 MG/30 ML UD PO PRN
[2019-03-03] MEDS ORDERED: METHOCARBAMOL 500 MG TABLET PO PRN
[2019-03-03] MEDS ORDERED: MAGNESIUM HYDROX 2400MG/30ML ORAL SUSPENSION 30 ML CUP PO PRN
[2019-03-03] MEDS ORDERED: IBUPROFEN 400 MG TABLET (FP) PO PRN
[2019-03-03] MEDS ORDERED: hydrOXYzine PAMOATE 25 MG CAPSULE (FP) PO PRN
[2019-03-03] MEDS ORDERED: MAG HYDROX/AL HYDROX/SIMETH 30 ML UNIT-DOSE CUP PO PRN
[2019-03-03] MEDS ORDERED: MAGNESIUM CITRATE 300 ML BOTTLE PO PRN
[2019-03-03] MEDS ORDERED: chlordiazePOXIDE HCL 25 MG CAPSULE PO PRN (00:02)
[2019-03-03] MEDS: chlordiazePOXIDE HCL 25 MG CAPSULE PO SCH ×4 (06:02→22:32)
[2019-03-03] MEDS: ACETAMINOPHEN 325 MG TABLET (FP) PO PRN (06:05)
--- NOTE | 2019-03-03 10:34 | PN ---
[facility] CIWA - CIWA Score Nausea/Vomitin-No Nausea/No Vomiting Muscle Tremors: 3 Anxiety: 3 Agitation: 2 Paroxysmal Sweats: 2 Orientation: 0-Oriented Tacttile Disturbances: 0-None Auditory Disturbances: 0-None Visual Disturbances: 0-None Headache: 0-None Present CIWA-Ar Total Score: 10 S Progress Note (SOAP) Subjective: irritable sweats interrupted sleep tired Objective: 03/03/19 10:33 Vital Signs Temperature 97.3 F L 03/03/19 09:38 Pulse Rate 61 03/03/19 09:38 Respiratory Rate 18 03/03/19 09:38 Blood Pressure 133/79 03/03/19 09:38 O2 Sat by Pulse Oximetry (%) pending labs [id number] lying in bed no acute distress Assessment: 03/03/19 10:34 withdrawal sx Plan: continue detox increase fluids pending labs
[2019-03-03] MEDS: PRENATAL VITAMINS W/ FOLIC ACID TABLET (FP) PO SCH (10:40)
--- NOTE | 2019-03-03 11:14 | CONSULT ---
[facility] Psychiatric Consult - Data Date of interview: 03/03/19 Psychiatric History: Patient was unwilling to be seen. Told scientific writer that he did not ask to see psychiatrist
[2019-03-03] MEDS: NIFEdipine E.R 60 MG TABLET (UD) PO SCH (11:42)
[2019-03-03 12:38] LABS: ALBUMIN 3.6 g/dl (3.4-5.0); BILIRUBIN,TOTAL 0.2 mg/dL (0.2-1); BLOOD UREA NITROGEN 50.1 mg/dL (7-18); CALCIUM 9.2 mg/dL (8.5-10.1); CREATININE 2.6 mg/dL (0.55-1.3); HEMATOCRIT 37.5 % (35.4-49); HEMOGLOBIN 12.4 GM/dL (11.7-16.9); MCH 30.5 pg (25.7-33.7); MCHC 33.1 g/dl (32.0-35.9); MEAN PLT VOLUME 9.2 fl (7.5-11.1); PLATELET COUNT 240 K/MM3 (134-434); POTASSIUM 3.9 mmol/L (3.5-5.1); RBC 4.08 M/mm3 (4.00-5.60); RDW 15.4 % (11.9-15.9); TOT PROT 7.1 g/dl (6.4-8.2); WHITE BLOOD COUNT 5.5 K/mm3 (4.0-10.0)
[2019-03-03] MEDS: THIAMINE HCL 100 MG TABLET (FP) PO SCH (22:32)
[2019-03-04] MEDS: chlordiazePOXIDE HCL 25 MG CAPSULE PO SCH ×4 (06:34→22:28)
[2019-03-04] MEDS: ACETAMINOPHEN 325 MG TABLET (FP) PO PRN (06:35)
[2019-03-04] MEDS: PRENATAL VITAMINS W/ FOLIC ACID TABLET (FP) PO SCH (11:12)
[2019-03-04] MEDS: NIFEdipine E.R 60 MG TABLET (UD) PO SCH (11:12)
--- NOTE | 2019-03-04 12:43 | PN ---
S CIWA - CIWA Score Nausea/Vomitin-No Nausea/No Vomiting Muscle Tremors: 3 Anxiety: 1-Mildly Anxious Agitation: 2 Paroxysmal Sweats: 2 Orientation: 0-Oriented Tacttile Disturbances: 0-None Auditory Disturbances: 0-None Visual Disturbances: 0-None Headache: 0-None Present CIWA-Ar Total Score: 8 S Progress Note (SOAP) Subjective: sweats mild shakes interrupted sleep body aches Objective: 03/04/19 12:43 Vital Signs Temperature 97.5 F L 03/04/19 09:29 Pulse Rate 62 03/04/19 09:29 Respiratory Rate 18 03/04/19 09:29 Blood Pressure 146/80 03/04/19 09:29 O2 Sat by Pulse Oximetry (%) Laboratory Tests 03/03/19 03/03/19 03/03/19 09:00 09:00 09:00 WBC 5.5 RBC 4.08 Hgb 12.4 Hct 37.5 MCV 92.0 MCH 30.5 MCHC 33.1 RDW 15.4 Plt Count 240 MPV 9.2 Sodium 143 Potassium 3.9 Chloride 108 H Carbon Dioxide 29 Anion Gap 6 L BUN 50.1 H Creatinine 2.6 H Est GFR (CKD-EPI)AfAm 29.52 Est GFR (CKD-EPI)NonAf 25.47 Random Glucose 89 Calcium 9.2 Total Bilirubin 0.2 AST 23 ALT 25 Alkaline Phosphatase 93 Total Protein 7.1 Albumin 3.6 RPR Titer Nonreactive labs noted aaox3 ambulating no acute distress Assessment: 03/04/19 12:43 withdrawals sx Plan: continue detox increase fluids
[2019-03-04] MEDS: THIAMINE HCL 100 MG TABLET (FP) PO SCH (22:28)
[2019-03-05] MEDS ORDERED: chlordiazePOXIDE HCL 10 MG CAPSULE PO PRN
[2019-03-05] MEDS: chlordiazePOXIDE HCL 10 MG CAPSULE PO SCH ×4 (05:19→22:21)
[2019-03-05] MEDS: ACETAMINOPHEN 325 MG TABLET (FP) PO PRN (05:19)
[2019-03-05] MEDS: PRENATAL VITAMINS W/ FOLIC ACID TABLET (FP) PO SCH (10:21)
[2019-03-05] MEDS: NIFEdipine E.R 60 MG TABLET (UD) PO SCH (10:21)
--- NOTE | 2019-03-05 11:08 | PN ---
S CIWA - CIWA Score Nausea/Vomitin-No Nausea/No Vomiting Muscle Tremors: 3 Anxiety: 1-Mildly Anxious Agitation: 1-Slight > Activity Paroxysmal Sweats: 1-Minimal Palms Moist Orientation: 0-Oriented Tacttile Disturbances: 0-None Auditory Disturbances: 0-None Visual Disturbances: 0-None Headache: 0-None Present CIWA-Ar Total Score: 6 BHS Progress Note (SOAP) Subjective: agitation i need to leave tomorrow Objective: 03/05/19 11:09 Vital Signs Temperature 97.8 F 03/05/19 09:37 Pulse Rate 75 03/05/19 09:37 Respiratory Rate 18 03/05/19 09:37 Blood Pressure 140/95 03/05/19 09:37 O2 Sat by Pulse Oximetry (%) aaox3 ambulating no acute distress Assessment: 03/05/19 11:10 mild withdrawals Plan: continue with modified detox increase fluids d/c in am
--- NOTE | 2019-03-05 13:47 | EKG ---
Test Reason : Blood Pressure : / mmHG Vent. Rate : 064 BPM Atrial Rate : 064 BPM P-R Int : 164 ms QRS Dur : 120 ms QT Int : 410 ms P-R-T Axes : 070 -25 215 degrees QTc Int : 422 ms NORMAL SINUS RHYTHM BIATRIAL ENLARGEMENT LEFT VENTRICULAR HYPERTROPHY WITH QRS WIDENING AND REPOLARIZATION ABNORMALITY ABNORMAL ECG Confirmed by ELLIOT GONSALVES MD ([id number]) on 03/05/2019 1:47:04 PM Referred By: JAY BACA Confirmed By:ELLIOT GONSALVES MD
[2019-03-05] MEDS: THIAMINE HCL 100 MG TABLET (FP) PO SCH (22:21)
[2019-03-06] MEDS ORDERED: chlordiazePOXIDE HCL 10 MG CAPSULE PO SCH (05:00)
[2019-03-06 09:24] VITALS: BP 148/80; PULSE 65; TEMP 97.9
--- NOTE | 2019-03-06 14:08 | DS ---
[facility] Detox Discharge Summary Admission Date: 03/03/19 Discharge Date: 03/06/19 - History Present History: Alcohol Dependence, Cocaine Dependence Additional Comments: Pt is medically cleared and is discharged. Pt completed his detox protocol. Pt is encouraged to follow-up with an outpatient CD program and also to follow-up with his PMD. Pt verbalized understanding. Pertinent Past History: H/o HTN, alcohol and cocaine use disorder. - Physical Exam Results Vital Signs: Vital Signs Temperature 97.9 F 03/06/19 09:23 Pulse Rate 65 03/06/19 09:23 Respiratory Rate 18 03/06/19 09:23 Blood Pressure 148/80 03/06/19 09:23 O2 Sat by Pulse Oximetry (%) Vital Signs 03/06/19 03/06/19 07:19 09:23 Temperature 97.3 F L 97.9 F Pulse Rate 60 65 Respiratory 18 18 Rate Blood Pressure 137/84 148/80 Lab Results WBC 5.5 K/mm3 (4.0-10.0) 03/03/19 09:00 RBC 4.08 M/mm3 (4.00-5.60) 03/03/19 09:00 Hgb 12.4 GM/dL (11.7-16.9) 03/03/19 09:00 Hct 37.5 % (35.4-49) 03/03/19 09:00 MCV 92.0 fl (80-96) 03/03/19 09:00 MCHC 33.1 g/dl (32.0-35.9) 03/03/19 09:00 RDW 15.4 % (11.9-15.9) 03/03/19 09:00 Plt Count 240 K/MM3 (134-434) 03/03/19 09:00 Sodium 143 mmol/L (136-145) 03/03/19 09:00 Potassium 3.9 mmol/L (3.5-5.1) 03/03/19 09:00 Chloride 108 mmol/L (98-107) H 03/03/19 09:00 Carbon Dioxide 29 mmol/L (21-32) 03/03/19 09:00 Anion Gap 6 MMOL/L (8-16) L 03/03/19 09:00 BUN 50.1 mg/dL (7-18) H 03/03/19 09:00 Creatinine 2.6 mg/dL (0.55-1.3) H 03/03/19 09:00 Random Glucose 89 mg/dL (74-106) 03/03/19 09:00 Calcium 9.2 mg/dL (8.5-10.1) 03/03/19 09:00 Labs noted. Pertinent Admission Physical Exam Findings: withdrawal symptoms. - Treatment Hospital Course: Detox Protocol Followed, Detoxed Safely, Responded well, Discharged Condition Good - Medication Discharge Medications: Ambulatory Orders Quetiapine Fumarate [Seroquel -] 100 mg PO BID 01/14/19 Nifedipine [Adalat cc] 120 mg PO DAILY #30 tablet.er 01/17/19 - Diagnosis (1) Alcohol dependence Status: Acute (2) Alcohol dependence with uncomplicated withdrawal Status: Acute (3) Anemia Status: Acute (4) Nicotine dependence Status: Acute Qualifiers: Nicotine product type: cigarettes Substance use status: in withdrawal Qualified Code(s): F17.213 - Nicotine dependence, cigarettes, with withdrawal (5) Hypertension Status: Chronic Qualifiers: Hypertension type: essential hypertension Qualified Code(s): I10 - Essential (primary) hypertension (6) Left knee pain Status: Chronic Qualifiers: Chronicity: chronic Qualified Code(s): M25.562 - Pain in left knee; G89.29 - Other chronic pain (7) Opiate abuse, episodic Status: Chronic (8) Renal failure Status: Chronic (9) Status post skin graft Status: Resolved - AMA Did Patient Leave Against Medical Advice: No
[2019-03-07] MEDS ORDERED: chlordiazePOXIDE HCL 10 MG CAPSULE PO ONE (05:00)
== END 2019-03-06 09:32 | disposition home or self-care (01) | DRG 773 ==
LOC: YASAS 19:44 → Y6N 03-03 00:06
PROVIDERS: ADMIT Surgery; ATTEND Surgery
PROC: HZ2ZZZZ Detoxification Services for Substance Abuse Treatment (ICD-10-PCS; principal; 2019-03-03)
DX: F10.230 Alcohol dependence with withdrawal, uncomplicated (principal); F11.10 Opioid abuse, uncomplicated; F14.20 Cocaine dependence, uncomplicated; F17.213 Nicotine dependence, cigarettes, with withdrawal; I12.9 Hypertensive chronic kidney disease with stage 1 through stage 4 chronic kidney disease, or unspecified chronic kidney disease; N18.9 Chronic kidney disease, unspecified; D64.9 Anemia, unspecified; M25.562 Pain in left knee; G89.29 Other chronic pain; Z94.5 Skin transplant status
CPT/HCPCS: 36415; 80053; 85027; 86480; 86593; 93005; 93010

== ENCOUNTER 2019-04-27 13:41 | Inpatient (IN) | payer OTHER ==
[2019-04-27 15:23] VITALS: BMI 28.4
--- NOTE | 2019-04-27 18:52 | HP ---
CIWA Score Nausea/Vomitin-Mild Nausea/No Vomiting Muscle Tremors: 4-Moderate,w/Arms Extend Anxiety: 4-Mod. Anxious/Guarded Agitation: 2 Paroxysmal Sweats: No Perspiration Orientation: 2-Disoriented Date<2 days Tacttile Disturbances: 2-Mild Itch/Numbness/Burn Auditory Disturbances: 0-None Visual Disturbances: 0-None Headache: 2-Mild CIWA-Ar Total Score: 17 - Admission Criteria OASAS Guidelines: Admission for Medically Managed Detox: Requires at least one of the followin. CIWA greater than 12 2. Seizures within the past 24 hours 3. Delirium tremens within the past 24 hours 4. Hallucinations within the past 24 hours 5. Acute intervention needed for co occurring medical disorder 6. Acute intervention needed for co occurring psychiatric disorder 7. Severe withdrawal that cannot be handled at a lower level of care (continued vomiting, continued diarrhea, abnormal vital signs) requiring intravenous medication and/or fluids 8. Admitting History and Physical - Smoking History Smoking history: Current every day smoker Have you smoked in the past 12 months: Yes Aproximately how many cigarettes per day: 2 If you are a former smoker, when did you quit?: 02/2018 - Alcohol/Substance Use Hx Alcohol Use: Yes Admission [facility] Allergies/Adverse Reactions: Allergies Allergy/AdvReac Type Severity Reaction Status Date / Time No Known Allergies Allergy Verified 04/27/19 15:16 History of Present Illness: pt here requesting detox from etoh use , reports 24 oz beer , 5/day , starts drinking at various times in the day , denies blackouts , seizures , reports occasional tremors. Pt is poor historian, tangential and irritable , talking about jainism . " that's why I am here , to serve the god of Godfrey , the spirit of truth . What are you doing instead of a Kingdom ? Why are there 18 nations ? What's the first thing you are going to do with a new nation? " cocaine tobacco - denies PMhx : htn , did not take meds since 3 days ago , using walker for hip , back and knee chronic pain pshx : cheloid, chest tube psych : paranoid sad , did not take meds in 3 days . Exam Limitations: Clinical Condition - Ebola screening Have you traveled outside of the country in the last 21 days: No Have you had contact with anyone from an Ebola affected area: No Do you have a fever: No - Review of Systems Constitutional: No Symptoms Reported EENT: reports: Other (glasses) Respiratory: reports: No Symptoms reported Cardiac: reports: No Symptoms Reported GI: reports: Constipated, Nausea : reports: No Symptoms Reported Musculoskeletal: reports: See HPI Integumentary: reports: No Symptoms Reported Neuro: reports: See HPI Endocrine: reports: No Symptoms Reported, Other (" I go by the dietary laws in the book of jordi and the bok of [place], everybody knows about that !") Psychiatric: reports: Agitated, Anxious Patient History - Patient Medical History Hx Anemia: No Hx Asthma: No Hx Chronic Obstructive Pulmonary Disease (COPD): No Hx Cancer: No Hx Cardiac Disorders: No Hx Congestive Heart Failure: No Hx Hypertension: Yes (Nifedipine) Hx Hypercholesterolemia: No Hx Pacemaker: No HX Cerebrovascular Accident: No Hx Seizures: No Hx Dementia: No Hx Diabetes: No Hx Gastrointestinal Disorders: No Hx Liver Disease: No Hx Genitourinary Disorders: No Hx Sexually Transmitted Disorders: No Hx Renal Disease (ESRD): No Hx Thyroid Disease: No Hx Human Immunodeficiency Virus (HIV): No (NEGATIVE HX last 2012) Hx Hepatitis C: No Hx Depression: No Hx Suicide Attempt: No (Denies suic idal ideation at this time) Hx Bipolar Disorder: No Hx Schizophrenia: Yes - Patient Surgical History Past Surgical History: Yes Hx Neurologic Surgery: No Hx Cataract Extraction: No Hx Cardiac Surgery: No Hx Lung Surgery: Yes (R chest tube 2014 (Pneumothorax)) Hx Breast Surgery: No Hx Breast Biopsy: No Hx Abdominal Surgery: No Hx Appendectomy: No Hx Cholecystectomy: No Hx Genitourinary Surgery: No Hx Section: No Hx Orthopedic Surgery: Yes Hx Hysterectomy: No Other Surgical History: right lateral keloid removed unable to remember when Anesthesia Reaction: No - PPD History Date: 03/03/18 Results: NEGATIVE - Smoking Cessation Smoking history: Current every day smoker Have you smoked in the past 12 months: Yes Aproximately how many cigarettes per day: 2 If you are a former smoker, when did you quit?: 02/2018 Cigars Per Day: 0 Hx Chewing Tobacco Use: No Initiated information on smoking cessation: Yes 'Breaking Loose' booklet given: 04/27/19 - Substances abused Alcohol Substance route: Oral Frequency: Daily Amount used: 5 x 24 oz beers Age of first use: 28 Date of last use: 04/26/19 Crack Substance route: Smoking Frequency: Daily Amount used: $50 Age of first use: 27 Date of last use: 04/27/19 Cocaine Substance route: Smoking Frequency: Daily Amount used: $50 Age of first use: 28 Date of last use: 04/26/19 Admission Physical Exam BHS - Vital Signs Vital Signs: Vital Signs - 24 hr 04/27/19 15:16 Temperature 98.9 F Pulse Rate 88 Respiratory 18 Rate Blood Pressure 178/90 H - Physical General Appearance: Yes: Disheveled, Mild Distress, Irritable, Anxious HEENTM: Yes: EOMI, Hearing grossly Normal, Normocephalic, Normal Voice Respiratory: Yes: Chest Non-Tender, Lungs Clear, Normal Breath Sounds Neck: Yes: No masses,lesions,Nodules, Trachea in good position Cardiology: Yes: Regular Rhythm, Regular Rate, S1, S2 Abdominal: Yes: Non Tender, Soft Musculoskeletal: Yes: Other (ambulating w/ walker) Extremities: Yes: Normal Range of Motion, Non-Tender, Tremors Neurological: Yes: Alert, Other (irritable) Integumentary: Yes: Warm - Diagnostic (1) Alcohol dependence with uncomplicated withdrawal Current Visit: Yes Status: Chronic (2) Cocaine dependence Current Visit: Yes Status: Chronic Breathalyzer - Breathalyzer Breathalyzer: 0 POC Urine test - Test device test lot number: not applicable Urine Drug Screen - Test Device Lot number: [id number] Expiration date: 12/20/20 - Control Is test valid?: Yes - Results Drug screen NEGATIVE: No Urine drug screen results: RJ-Cocaine Inpatient Rehab Admission - Rehab Decision to Admit Inpatient rehab admission?: No
[2019-04-27] MEDS ORDERED: IBUPROFEN 400 MG TABLET (FP) PO PRN (19:02)
[2019-04-27] MEDS ORDERED: BISMUTH SUBSALICYLATE 524 MG/30 ML UD PO PRN (19:02)
[2019-04-27] MEDS ORDERED: hydrOXYzine PAMOATE 25 MG CAPSULE (FP) PO PRN (19:02)
[2019-04-27] MEDS ORDERED: MAGNESIUM HYDROX 2400MG/30ML ORAL SUSPENSION 30 ML CUP PO PRN (19:02)
[2019-04-27] MEDS ORDERED: MAG HYDROX/AL HYDROX/SIMETH 30 ML UNIT-DOSE CUP PO PRN (19:02)
[2019-04-27] MEDS ORDERED: ACETAMINOPHEN 325 MG TABLET (FP) PO PRN (19:02)
[2019-04-27] MEDS ORDERED: MENTHOL/PHENOL 1 EACH UD MM PRN (19:02)
[2019-04-27] MEDS ORDERED: MAGNESIUM CITRATE 300 ML BOTTLE PO PRN (19:02)
[2019-04-27] MEDS ORDERED: MELATONIN 5 MG TABLETS PO PRN (19:02)
[2019-04-27] MEDS ORDERED: chlordiazePOXIDE HCL 10 MG CAPSULE PO PRN (19:03)
[2019-04-27] MEDS: chlordiazePOXIDE HCL 25 MG CAPSULE PO SCH (21:08)
[2019-04-27] MEDS: NIFEdipine E.R 60 MG TABLET (UD) PO SCH (21:08)
[2019-04-27] MEDS: METHOCARBAMOL 500 MG TABLET PO PRN (21:14)
[2019-04-27] MEDS: THIAMINE HCL 100 MG TABLET (FP) PO SCH (22:24)
[2019-04-28] MEDS: chlordiazePOXIDE HCL 25 MG CAPSULE PO SCH ×3 (05:23→22:32)
--- NOTE | 2019-04-28 09:22 | PN ---
S CIWA - CIWA Score Nausea/Vomitin-Mild Nausea/No Vomiting Muscle Tremors: 3 Anxiety: 3 Agitation: 2 Paroxysmal Sweats: 2 Orientation: 2-Disoriented Date<2 days (date of week day of month) Tacttile Disturbances: 0-None Auditory Disturbances: 0-None Visual Disturbances: 0-None Headache: 2-Mild CIWA-Ar Total Score: 15 BHS Progress Note (SOAP) Subjective: 63 years old male admitted on 04/27/19 for alcohol withdrawal sx management treated with librium detox regimen ambulating in room with walker steady gait slow feeling tired resting on bed limited conversation with staff Objective: 04/28/19 09:22 Vital Signs Temperature 98.6 F 04/28/19 05:59 Pulse Rate 71 04/28/19 05:59 Respiratory Rate 18 04/28/19 05:59 Blood Pressure 131/74 04/28/19 05:59 O2 Sat by Pulse Oximetry (%) 04/28/19 09:22 lab pending Assessment: 04/28/19 09:22 alcohol withdrawal sx Plan: continue librium detox regimen
[2019-04-28] MEDS: PRENATAL VITAMINS W/ FOLIC ACID TABLET (FP) PO SCH (10:32)
[2019-04-28] MEDS: NIFEdipine E.R 60 MG TABLET (UD) PO SCH (10:32)
[2019-04-28] MEDS: ACETAMINOPHEN 325 MG TABLET (FP) PO PRN ×2 (10:33→22:33)
[2019-04-28 12:45] LABS: HEMATOCRIT 34.5 % (35.4-49); HEMOGLOBIN 11.4 GM/dL (11.7-16.9); MCH 30.6 pg (25.7-33.7); MCHC 33.1 g/dl (32.0-35.9); MEAN CELL VOLUME 92.6 fl (80-96); MEAN PLT VOLUME 9.6 fl (7.5-11.1); PLATELET COUNT 217 K/MM3 (134-434); RBC 3.72 M/mm3 (4.00-5.60); RDW 15.1 % (11.9-15.9); WHITE BLOOD COUNT 5.1 K/mm3 (4.0-10.0)
[2019-04-28 12:54] LABS: ALBUMIN 3.2 g/dl (3.4-5.0); BILIRUBIN,TOTAL 0.3 mg/dL (0.2-1); BLOOD UREA NITROGEN 32.4 mg/dL (7-18); CALCIUM 8.1 mg/dL (8.5-10.1); CREATININE 2.7 mg/dL (0.55-1.3); POTASSIUM 3.4 mmol/L (3.5-5.1); TOT PROT 6.2 g/dl (6.4-8.2)
--- NOTE | 2019-04-28 15:03 | CONSULT ---
[facility] Psychiatric Consult - Data Date of interview: 04/28/19 Admission source: [facility] Identifying data: Mr Garcia is approached on THREE occasions for psychiatric evaluation. Patient declines.
[2019-04-28] MEDS: THIAMINE HCL 100 MG TABLET (FP) PO SCH (22:32)
[2019-04-28] MEDS: METHOCARBAMOL 500 MG TABLET PO PRN (22:35)
[2019-04-29] MEDS: chlordiazePOXIDE 5 MG CAPSULE PO SCH ×3 (05:57→22:28)
[2019-04-29] MEDS: ACETAMINOPHEN 325 MG TABLET (FP) PO PRN ×2 (05:58→22:28)
[2019-04-29] MEDS: NIFEdipine E.R 60 MG TABLET (UD) PO SCH (10:43)
[2019-04-29] MEDS: PRENATAL VITAMINS W/ FOLIC ACID TABLET (FP) PO SCH (10:44)
--- NOTE | 2019-04-29 13:18 | PN ---
S CIWA - CIWA Score Nausea/Vomitin-Mild Nausea/No Vomiting Muscle Tremors: 4-Moderate,w/Arms Extend Anxiety: 3 Agitation: 2 Paroxysmal Sweats: 1-Minimal Palms Moist Orientation: 0-Oriented Tacttile Disturbances: 0-None Auditory Disturbances: 0-None Visual Disturbances: 0-None Headache: 1-Very Mild CIWA-Ar Total Score: 12 S Progress Note (SOAP) Subjective: 63 years old male admitted on 04/27/19 for alcohol withdrawal sx management treated with librium detox regimen patient tolerated well ambulating with walker steady gait sitting on the bed reading discuss aftercare with staff Objective: 04/29/19 13:17 Vital Signs Temperature 97.4 F L 04/29/19 13:13 Pulse Rate 67 04/29/19 13:13 Respiratory Rate 18 04/29/19 13:13 Blood Pressure 151/88 04/29/19 13:13 O2 Sat by Pulse Oximetry (%) Laboratory Last Values WBC 5.1 K/mm3 (4.0-10.0) 04/28/19 08:56 RBC 3.72 M/mm3 (4.00-5.60) L 04/28/19 08:56 Hgb 11.4 GM/dL (11.7-16.9) L 04/28/19 08:56 Hct 34.5 % (35.4-49) L 04/28/19 08:56 MCV 92.6 fl (80-96) 04/28/19 08:56 MCH 30.6 pg (25.7-33.7) 04/28/19 08:56 MCHC 33.1 g/dl (32.0-35.9) 04/28/19 08:56 RDW 15.1 % (11.9-15.9) 04/28/19 08:56 Plt Count 217 K/MM3 (134-434) 04/28/19 08:56 MPV 9.6 fl (7.5-11.1) 04/28/19 08:56 Sodium 145 mmol/L (136-145) 04/28/19 08:56 Potassium 3.4 mmol/L (3.5-5.1) L 04/28/19 08:56 Chloride 110 mmol/L (98-107) H 04/28/19 08:56 Carbon Dioxide 30 mmol/L (21-32) 04/28/19 08:56 Anion Gap 5 MMOL/L (8-16) L 04/28/19 08:56 BUN 32.4 mg/dL (7-18) H 04/28/19 08:56 Creatinine 2.7 mg/dL (0.55-1.3) H 04/28/19 08:56 Est GFR (CKD-EPI)AfAm 28.21 04/28/19 08:56 Est GFR (CKD-EPI)NonAf 24.34 04/28/19 08:56 Random Glucose 131 mg/dL (74-106) H 04/28/19 08:56 Calcium 8.1 mg/dL (8.5-10.1) L 04/28/19 08:56 Total Bilirubin 0.3 mg/dL (0.2-1) 04/28/19 08:56 AST 22 U/L (15-37) 04/28/19 08:56 ALT 18 U/L (13-61) 04/28/19 08:56 Alkaline Phosphatase 79 U/L (45-117) 04/28/19 08:56 Total Protein 6.2 g/dl (6.4-8.2) L 04/28/19 08:56 Albumin 3.2 g/dl (3.4-5.0) L 04/28/19 08:56 RPR Titer Nonreactive (NONREACTIVE) 04/28/19 08:56 lab noted low K+ bun elevation creatinine elevation glucose elevation Assessment: 04/29/19 13:25 alcohol withdrawal sx Plan: continue librium detox regimen
[2019-04-29] MEDS: POTASSIUM CHLORIDE TABS 20 MEQ TABLET.ER (FP) PO SCH (14:25)
[2019-04-29] MEDS: THIAMINE HCL 100 MG TABLET (FP) PO SCH (22:28)
[2019-04-30] MEDS ORDERED: chlordiazePOXIDE HCL 10 MG CAPSULE PO PRN
[2019-04-30] MEDS: METHOCARBAMOL 500 MG TABLET PO PRN (05:20)
[2019-04-30] MEDS: ACETAMINOPHEN 325 MG TABLET (FP) PO PRN ×2 (05:20→22:26)
[2019-04-30] MEDS: chlordiazePOXIDE HCL 10 MG CAPSULE PO SCH ×3 (05:20→22:25)
[2019-04-30 10:08] LABS: BLOOD UREA NITROGEN 25.8 mg/dL (7-18); CREATININE 2.3 mg/dL (0.55-1.3)
[2019-04-30] MEDS: POTASSIUM CHLORIDE TABS 20 MEQ TABLET.ER (FP) PO SCH (10:11)
[2019-04-30] MEDS: PRENATAL VITAMINS W/ FOLIC ACID TABLET (FP) PO SCH (10:11)
[2019-04-30] MEDS: NIFEdipine E.R 60 MG TABLET (UD) PO SCH (10:11)
--- NOTE | 2019-04-30 12:08 | PN ---
S CIWA - CIWA Score Nausea/Vomitin-No Nausea/No Vomiting Muscle Tremors: 1-None Visible, but [place] Anxiety: 1-Mildly Anxious Agitation: 1-Slight > Activity Paroxysmal Sweats: No Perspiration Orientation: 0-Oriented Tacttile Disturbances: 1-Very Mild Itch/Numbness Auditory Disturbances: 0-None Visual Disturbances: 0-None Headache: 1-Very Mild CIWA-Ar Total Score: 5 BHS Progress Note (SOAP) Subjective: alert,irritable,anxious,interrupted sleep,,pain in the body Objective: 04/30/19 12:06 Vital Signs Temperature 98.7 F 04/30/19 09:22 Pulse Rate 72 04/30/19 09:22 Respiratory Rate 18 04/30/19 09:22 Blood Pressure 150/88 04/30/19 09:22 O2 Sat by Pulse Oximetry (%) Laboratory Results - last 24 hr 04/30/19 08:00 BUN 25.8 H Creatinine 2.3 H Est GFR (CKD-EPI)AfAm 34.24 Est GFR (CKD-EPI)NonAf 29.54 Fasting Glucose 96 Assessment: 04/30/19 12:07 withdrawal symptom Plan: continue detox,encourage fluid,renal insufficiency,follow up with medical provider after discharge
[2019-04-30] MEDS ORDERED: cloNIDine HCL 0.1 MG TABLET PO ONE (18:48)
[2019-04-30] MEDS: THIAMINE HCL 100 MG TABLET (FP) PO SCH (22:25)
[2019-05-01] MEDS ORDERED: chlordiazePOXIDE HCL 10 MG CAPSULE PO ONE (05:00)
[2019-05-01] MEDS: ACETAMINOPHEN 325 MG TABLET (FP) PO PRN (05:32)
[2019-05-01 09:30] VITALS: BP 142/88; PULSE 59; TEMP 97.2
--- NOTE | 2019-05-01 14:41 | DS ---
[facility] Detox Discharge Summary Admission Date: 04/27/19 Discharge Date: 05/01/19 - History Present History: Alcohol Dependence, Cocaine Dependence Additional Comments: Pt is medically cleared and is discharged today. Pt completed the detox protocol. Pt is instructed to follow-up with CD outpatient program and also to follow-up with his pmd. Pt verbalized understanding. Pt is alert and oriented x3 and in no respiratory distress. Pertinent Past History: H/O HTN, alcohol, and cocaine use disorder. - Physical Exam Results Vital Signs: Vital Signs Temperature 97.2 F L 05/01/19 09:29 Pulse Rate 59 L 05/01/19 09:29 Respiratory Rate 18 05/01/19 09:29 Blood Pressure 142/88 05/01/19 09:29 O2 Sat by Pulse Oximetry (%) Vital Signs 05/01/19 09:29 Temperature 97.2 F L Pulse Rate 59 L Respiratory 18 Rate Blood Pressure 142/88 Lab Results WBC 5.1 K/mm3 (4.0-10.0) 04/28/19 08:56 RBC 3.72 M/mm3 (4.00-5.60) L 04/28/19 08:56 Hgb 11.4 GM/dL (11.7-16.9) L 04/28/19 08:56 Hct 34.5 % (35.4-49) L 04/28/19 08:56 MCV 92.6 fl (80-96) 04/28/19 08:56 MCHC 33.1 g/dl (32.0-35.9) 04/28/19 08:56 RDW 15.1 % (11.9-15.9) 04/28/19 08:56 Plt Count 217 K/MM3 (134-434) 04/28/19 08:56 Sodium 145 mmol/L (136-145) 04/28/19 08:56 Potassium 3.4 mmol/L (3.5-5.1) L 04/28/19 08:56 Chloride 110 mmol/L (98-107) H 04/28/19 08:56 Carbon Dioxide 30 mmol/L (21-32) 04/28/19 08:56 Anion Gap 5 MMOL/L (8-16) L 04/28/19 08:56 BUN 25.8 mg/dL (7-18) H 04/30/19 08:00 Creatinine 2.3 mg/dL (0.55-1.3) H 04/30/19 08:00 Random Glucose 131 mg/dL (74-106) H 04/28/19 08:56 Calcium 8.1 mg/dL (8.5-10.1) L 04/28/19 08:56 Labs noted. Pertinent Admission Physical Exam Findings: withdrawal symptoms. - Treatment Hospital Course: Detox Protocol Followed, Detoxed Safely, Responded well, Discharged Condition Good - Medication Discharge Medications: Ambulatory Orders Quetiapine Fumarate [Seroquel -] 100 mg PO BID 01/14/19 Nifedipine [Adalat cc] 120 mg PO DAILY #30 tablet.er 01/17/19 - Diagnosis (1) Alcohol dependence Status: Acute (2) Nicotine dependence Status: Acute Qualifiers: Nicotine product type: cigarettes Substance use status: in withdrawal Qualified Code(s): F17.213 - Nicotine dependence, cigarettes, with withdrawal (3) Left knee pain Status: Chronic Qualifiers: Chronicity: chronic Qualified Code(s): M25.562 - Pain in left knee; G89.29 - Other chronic pain (4) Renal failure Status: Chronic - AMA Did Patient Leave Against Medical Advice: No BHS CIWA - CIWA Score Nausea/Vomitin-No Nausea/No Vomiting Muscle Tremors: None Anxiety: 1-Mildly Anxious Agitation: 0-Normal Activity Paroxysmal Sweats: 1-Minimal Palms Moist Orientation: 0-Oriented Tacttile Disturbances: 0-None Auditory Disturbances: 0-None Visual Disturbances: 0-None Headache: 0-None Present CIWA-Ar Total Score: 2
== END 2019-05-01 09:57 | disposition home or self-care (01) | DRG 521 ==
LOC: YASAS 13:41 → Y3N 19:50
PROVIDERS: ADMIT Allergy & Immunology; ATTEND Allergy & Immunology
PROC: HZ2ZZZZ Detoxification Services for Substance Abuse Treatment (ICD-10-PCS; principal; 2019-04-27)
DX: F10.230 Alcohol dependence with withdrawal, uncomplicated (principal); N18.9 Chronic kidney disease, unspecified; F14.20 Cocaine dependence, uncomplicated; F17.213 Nicotine dependence, cigarettes, with withdrawal; I12.9 Hypertensive chronic kidney disease with stage 1 through stage 4 chronic kidney disease, or unspecified chronic kidney disease; M25.562 Pain in left knee; G89.29 Other chronic pain; Z99.89 Dependence on other enabling machines and devices
CPT/HCPCS: 36415; 80053; 82565; 82947; 84520; 85027; 86593; J0735